=== PATIENT | male | born 1960 | race Caucasian/White ===

== ENCOUNTER 2016-07-14 22:04 | Inpatient (IN) | payer OTHER ==
--- NOTE | 2016-07-15 00:17 | HP ---
CIWA Score - CIWA Score Nausea/Vomitin Muscle Tremors: 2 Anxiety: 2 Agitation: 2 Paroxysmal Sweats: 1-Minimal Palms Moist Orientation: 0-Oriented Tacttile Disturbances: 2-Mild Itch/Numbness/Burn Auditory Disturbances: 2-Mild Harshness/Frighten Visual Disturbances: 2-Mild Sensitivity Headache: 2-Mild CIWA-Ar Total Score: 18 Admission ROS BHS - HPI Chief Complaint: WITHDRAWAL SYMPTOMS Allergies/Adverse Reactions: Allergies Allergy/AdvReac Type Severity Reaction Status Date / Time No Known Allergies Allergy Verified 02/15/16 10:58 History of Present Illness: 56 Y.O. WITH AN EXTENSIVE HISTORY OF DRUG AND ALCOHOL DEPENDENCE IS SEEKING DETOX. HE REPORTS HAVING A HISTORY OF 10 YEARS OF SOBRIETY. HE HAS COMPLETED DETOX AND REHAB HERE PREVIOUSLY AND HIS LAST ADMISSION FOR DETOX WAS IN 02/2016. Exam Limitations: Intoxication - Ebola screening Have you traveled outside of the country in the last 21 days: No (N) Have you had contact with anyone from an Ebola affected area: No Do you have a fever: No - Review of Systems Constitutional: Chills, Loss of Appetite, Malaise, Night Sweats, Unintentional Wgt. Loss EENT: reports: Blurred Vision Respiratory: reports: Cough Cardiac: reports: No Symptoms Reported GI: reports: No Symptoms Reported : reports: No Symptoms Reported Musculoskeletal: reports: Back Pain, Joint Pain Integumentary: reports: No Symptoms Reported Neuro: reports: Headache, Numbness, Tingling Endocrine: reports: No Symptoms Reported Hematology: reports: No Symptoms Reported Psychiatric: reports: Depressed Other Systems: Reviewed and Negative Patient History - Patient Medical History Hx Anemia: No Hx Asthma: No Hx Chronic Obstructive Pulmonary Disease (COPD): No Hx Cancer: No Hx Cardiac Disorders: No Hx Congestive Heart Failure: No Hx Hypertension: No Hx Hypercholesterolemia: Yes (NOT CURRENTLY ON MED) Hx Pacemaker: No HX Cerebrovascular Accident: No Hx Seizures: No Hx Dementia: No Hx Diabetes: No Hx Gastrointestinal Disorders: No Hx Liver Disease: No Hx Genitourinary Disorders: No Hx Sexually Transmitted Disorders: Yes (gonorrhea at age 18) Hx Renal Disease (ESRD): No Hx Thyroid Disease: No Hx Human Immunodeficiency Virus (HIV): No (NEGATIVE HX ) Hx Hepatitis C: No Hx Depression: Yes Hx Suicide Attempt: No (DENIES) Hx Bipolar Disorder: Yes (AND OCD) Hx Schizophrenia: No - Patient Surgical History Past Surgical History: Yes Hx Neurologic Surgery: No Hx Cataract Extraction: No Hx Cardiac Surgery: No Hx Lung Surgery: No Hx Breast Surgery: No Hx Breast Biopsy: No Hx Abdominal Surgery: No Hx Appendectomy: No Hx Cholecystectomy: No Hx Genitourinary Surgery: No Hx Section: No Hx Orthopedic Surgery: No Other Surgical History: left inguinal hernia repair in 2002 Anesthesia Reaction: No - PPD History Previous Implant?: Yes Implanted On Prior [facility] Admission?: Yes Date: 06/01/12 PPD to be Administered?: Yes - Reproductive History Patient is a Female of Child Bearing Age (11 -55 yrs old): No - Smoking Cessation Smoking history: Current some day smoker Have you smoked in the past 12 months: Yes Aproximately how many cigarettes per day: 5 Hx Chewing Tobacco Use: No Initiated information on smoking cessation: Yes 'Breaking Loose' booklet given: 07/15/16 - Substance & Tx. History Hx Alcohol Use: Yes Hx Substance Use: Yes Substance Use Type: Alcohol, Cocaine, Marijuana Hx Substance Use Treatment: Yes (REHAB AND DETOX ) - Substances Abused Alcohol Route: Oral Frequency: Daily Amount used: 20 BEERS Age of first use: 10 Date of Last Use: 07/14/16 Crack Route: Smoking Frequency: Daily Amount used: 1GM Age of first use: 25 Date of Last Use: 07/14/16 Family Disease History - Family Disease History Family Disease History: Diabetes: Mother (), Respiratory: Father ( PARKINSONS DZ-), Other: Grandparent (ALCOHOLISM-), Brother ( ALCOHOLISM) Admission Physical Exam BHS - Vital Signs Vital Signs: Last Vital Signs Temp Pulse Resp BP Pulse Ox 97.6 F 99 H 18 131/79 07/15/16 02:12 07/15/16 02:12 07/15/16 02:12 07/15/16 02:12 - Physical General Appearance: Yes: Alcohol on Breath, Tremorous, Anxious HEENTM: Yes: Hearing grossly Normal, Normocephalic, Normal Voice Respiratory: Yes: Chest Non-Tender, Lungs Clear, Normal Breath Sounds Neck: Yes: No masses,lesions,Nodules, Trachea in good position Breast: Yes: Breast Exam Deferred Abdominal: Yes: Normal Bowel Sounds, Non Tender Genitourinary: Yes: Other (NO COMPLAINTS REPORTED) Back: Yes: Normal Inspection Musculoskeletal: Yes: Back pain Extremities: Yes: Normal Capillary Refill, Normal Inspection, Normal Range of Motion Neurological: Yes: Alert Integumentary: Yes: Normal Color, Dry, Warm - Diagnostic (1) Alcohol dependence with uncomplicated withdrawal Current Visit: Yes Status: Chronic (2) Cocaine dependence Current Visit: Yes Status: Chronic Qualifiers: Substance use status: uncomplicated Qualified Code(s): F14.20 - Cocaine dependence, uncomplicated (3) Neuropathy Current Visit: Yes Status: Chronic (4) Sciatica Current Visit: Yes Status: Chronic Cleared for Admission [facility] - Detox or Rehab [facility] Level of Care: Medically Managed Detox Regimen/Protocol: Librium [facility] Breath Alcohol Content Breath Alcohol Content: 0.178 Vital Signs - Vital Signs Vital Signs Refused: No Temperature: 97.6 F Temperature Source: Oral Pulse Rate: 99 Respiratory Rate: 18 Blood Pressure: 131/79 BP Location: Left Arm Blood Pressure Position: Sitting - Height Height: 5 ft 7 in - Weight Weight: 162 lb Weight Measurement Method: Standing Scale Body Mass Index (BMI): 25.3 Urine Drug Screen - Test Device Lot Number: [id number] Expiration Date: 02/12/18 - Control Is Test Valid: Yes - Results Drug Screen Negative: No Urine Drug Screen Results: FRANKLIN-Cocaine
[2016-07-15] MEDS ORDERED: chlordiazePOXIDE HCL 25 MG CAPSULE PO ONE (02:04)
[2016-07-15] MEDS ORDERED: MAG HYDROX/AL HYDROX/SIMETH 30 ML UNIT-DOSE CUP PO PRN (02:04)
[2016-07-15] MEDS ORDERED: IBUPROFEN 400 MG TABLET (FP) PO PRN (02:04)
[2016-07-15] MEDS ORDERED: LOPERAMIDE HCL 2 MG CAPSULE PO PRN (02:04)
[2016-07-15] MEDS ORDERED: ACETAMINOPHEN 325 MG TABLET (FP) PO PRN (02:04)
[2016-07-15] MEDS ORDERED: MAGNESIUM HYDROX 2400MG/30ML ORAL SUSPENSION 30 ML CUP PO PRN (02:04)
[2016-07-15] MEDS ORDERED: guaiFENesin/D-METHORPHAN HB 10 ML UNIT-DOSE CUPS PO PRN (02:04)
[2016-07-15] MEDS ORDERED: P-EPHED 60MG/TRIPROLIDI 2.5MG TABLET PO PRN (02:04)
[2016-07-15] MEDS ORDERED: MAGNESIUM CITRATE 300 ML BOTTLE PO PRN (02:04)
[2016-07-15] MEDS ORDERED: NICOTINE POLACRILEX 2 MG GUM BUC PRN (02:04)
[2016-07-15] MEDS ORDERED: MENTHOL/PHENOL 1 EACH UD MM PRN (02:04)
[2016-07-15 02:12] VITALS: BMI 25.3
[2016-07-15] MEDS: hydrOXYzine PAMOATE 50 MG CAPSULE (FP) PO PRN (02:21)
[2016-07-15] MEDS: chlordiazePOXIDE HCL 25 MG CAPSULE PO SCH ×4 (05:54→22:10)
[2016-07-15] MEDS ORDERED: LIDOCAINE VISCOUS 2% ORAL/TOP 20 ML UNIT-DOSE CUP MM PRN (09:56)
[2016-07-15] MEDS ORDERED: LIDOCAINE VISCOUS 2% ORAL/TOP 20 ML UNIT-DOSE CUP MM ONE (09:56)
[2016-07-15] MEDS ORDERED: IBUPROFEN 600 MG TABLET (FP) PO PRN (09:56)
--- NOTE | 2016-07-15 10:00 | PN ---
S CIWA - CIWA Score Nausea/Vomitin-No Nausea/No Vomiting Muscle Tremors: 3 Anxiety: 4-Mod. Anxious/Guarded Agitation: 3 Paroxysmal Sweats: 4-Forehead w/Sweat Beads Orientation: 0-Oriented Tacttile Disturbances: 0-None Auditory Disturbances: 0-None Visual Disturbances: 0-None Headache: 0-None Present CIWA-Ar Total Score: 14 BHS Progress Note (SOAP) Subjective: anxiety,tremors,sweating,interrupted sleep,restless.C/O toothache lt. lower molar because tooth is loose. Objective: 07/15/16 09:59 Vital Signs - 8 hr 07/15/16 07/15/16 07/15/16 02:16 03:30 06:21 Temperature 97.6 F 97.6 F Pulse Rate 99 H 106 H Respiratory 18 18 18 Rate Blood Pressure 131/79 122/80 Assessment: 07/15/16 09:59 withdrawal sx. Plan: continue detox
[2016-07-15] MEDS: PRENATAL VITAMINS W/ FOLIC ACID TABLET (FP) PO SCH (10:10)
--- NOTE | 2016-07-15 13:11 | CONSULT ---
[facility] Psychiatric Consult - Data Date of interview: 07/15/16 Admission source: [facility] Identifying data: New admission to [facility] for this 56 y/o male seeking detox treatment on for alcohol,marijuana and cocaine dependence.Patient is without children of his own (has three stepchildren),domiciled,unemployed,now disabled and supported on [facility] benefits.. Substance Abuse History: - Smoking Cessation. Smoking history: Current some day smoker. Have you smoked in the past 12 months: Yes. Aproximately how many cigarettes per day: 5. Hx Chewing Tobacco Use: No. Initiated information on smoking cessation: Yes. 'Breaking Loose' booklet given: 07/15/16. - Substance & Tx. History. Hx Alcohol Use: Yes. Hx Substance Use: Yes. Substance Use Type : Alcohol, Cocaine, Marijuana. Hx Substance Use Treatment: Yes (REHAB AND DETOX ). - Substances Abused. Alcohol. Route: Oral. Frequency: Daily. Amount used: 20 BEERS. Age of first use: 10. Date of Last Use: 07/14/16. Crack. Route: Smoking. Frequency: Daily. Amount used: 1GM. Age of first use : 25. Date of Last Use: 07/14/16. Confirmed by patient in my interview. Medical History: Significant for fibromyalgia,arthritis,low back pain,sciatica, hypercholesterolemia,left inguinal hernia repair and a history of treatment for gonorrhea (age 18). Psychiatric History: History of four psychiatric hospitalizations ([id number]).Known to [facility].Diagnosed with Bipolar Disorder.No OPD care for many years (more than 10 years,according to patient)." I don't need psychiatric medications." Mr Cheema denies history of suicide attempts. Physical/Sexual Abuse/Trauma History: Patient denies. Additional Comment: Urine Drug Screen Results: FRANKLIN-Cocaine.Noted. Mental Status Exam - Mental Status Exam Alert and Oriented to: Time, Place, Person Cognitive Function: Good Patient Appearance: Well Groomed Mood: Nervous, Withdrawn, Anxious Affect: Mood Congruent Patient Behavior: Fatigued, Appropriate, Cooperative Speech Pattern: Clear Voice Loudness: Normal Thought Process: Goal Oriented Thought Disorder: Not Present Hallucinations: Denies Suicidal Ideation: Denies Homicidal Ideation: Denies Insight/Judgement: Poor Sleep: Well Appetite: Good Muscle strength/Tone: Normal Gait/Station: Normal Psychiatric Findings - Problem List ([place] 1, 2,3) (1) Alcohol dependence with uncomplicated withdrawal Current Visit: Yes Status: Acute (2) Cocaine dependence Current Visit: Yes Status: Acute Qualifiers: Substance use status: uncomplicated Qualified Code(s): F14.20 - Cocaine dependence, uncomplicated (3) Nicotine dependence Current Visit: Yes Status: Acute (4) Substance induced mood disorder Current Visit: Yes Status: Acute (5) Bipolar disorder Current Visit: No Status: Chronic Comment: Historical diagnosis.No symptoms elicited. (6) Neuropathy Current Visit: Yes Status: Chronic (7) Sciatica Current Visit: Yes Status: Chronic (8) low back pain herniated disc Current Visit: Yes Status: Chronic (9) DM Diabetes mellitus type 2 Current Visit: Yes Status: Suspected (10) hypercholesterolemia Current Visit: Yes Status: Suspected - Initial Treatment Plan Initial Treatment Plan: Psychoeducation.Detoxification.Observation.
[2016-07-15 17:30] LABS: URINE APPEARANCE CLEAR; URINE BILIRUBIN NEGATIVE (NEGATIVE); URINE COLOR YELLOW; URINE GLUCOSE (UA) NEGATIVE (NEGATIVE); URINE KETONE NEGATIVE (NEGATIVE); URINE LEUK ESTERASE NEGATIVE (NEGATIVE); URINE NITRITE NEGATIVE (NEGATIVE); URINE PROTEIN NEGATIVE (NEGATIVE); URINE UROBILINOGEN NEGATIVE E.U./dl (0.2-1.0)
[2016-07-15 18:00] LABS: URINE BLOOD 1+ (NEGATIVE)
[2016-07-15 18:47] LABS: URINE MUCUS RARE; URINE RBC 1 /hpf (0-3); URINE WBC <1 /hpf (3-5)
[2016-07-15] MEDS: THIAMINE HCL 100 MG TABLET (FP) PO SCH (22:10)
[2016-07-15] MEDS: diphenhydrAMINE HCL 50 MG CAPSULE PO PRN (22:11)
--- NOTE | 2016-07-15 23:34 | EKG ---
Test Reason : Blood Pressure : / mmHG Vent. Rate : 095 BPM Atrial Rate : 095 BPM P-R Int : 162 ms QRS Dur : 086 ms QT Int : 350 ms P-R-T Axes : 060 004 041 degrees QTc Int : 439 ms NORMAL SINUS RHYTHM NORMAL ECG NO PREVIOUS ECGS AVAILABLE Confirmed by RICHARD COLE MD ([id number]) on 07/15/2016 11:34:02 PM Referred By: Confirmed By:RICHARD COLE MD
[2016-07-16] MEDS: chlordiazePOXIDE HCL 25 MG CAPSULE PO SCH ×4 (05:41→22:07)
[2016-07-16 10:06] LABS: MCH 30.7 pg (25.7-33.7); MEAN CELL VOLUME 93.1 fl (80-96); PLATELET COUNT 247 K/MM3 (134-434); RDW 13.4 % (11.9-15.9); WHITE BLOOD COUNT 6.1 K/mm3 (4.0-10.0)
[2016-07-16 10:26] LABS: ALBUMIN 3.5 g/dl (3.4-5.0); ALK PHOS 57 U/L (45-117); ANION GAP 10 (8-16); BILIRUBIN,TOTAL 0.5 mg/dL (0.2-1.0); CALCIUM 8.8 mg/dL (8.5-10.1); CO2 28 mmol/L (21-32); CREATININE 0.8 mg/dL (0.7-1.3); GLUCOSE,RANDOM 95 mg/dL (74-106); SGOT/AST 68 U/L (15-37); SGPT/ALT 106 U/L (12-78); TOT PROT 7.2 g/dl (6.4-8.2)
[2016-07-16] MEDS: PRENATAL VITAMINS W/ FOLIC ACID TABLET (FP) PO SCH (10:29)
[2016-07-16 12:15] LABS: HIV 1 & 2 AB NEGATIVE; HIV 1 AGp24 NEGATIVE
[2016-07-16] MEDS: chlordiazePOXIDE HCL 25 MG CAPSULE PO PRN ×2 (12:33→19:42)
--- NOTE | 2016-07-16 17:41 | PN ---
[facility] CIWA - CIWA Score Nausea/Vomitin-No Nausea/No Vomiting Muscle Tremors: 3 Anxiety: 4-Mod. Anxious/Guarded Agitation: 3 Paroxysmal Sweats: 3 Orientation: 0-Oriented Tacttile Disturbances: 0-None Auditory Disturbances: 0-None Visual Disturbances: 0-None Headache: 0-None Present CIWA-Ar Total Score: 13 S Progress Note (SOAP) Subjective: anxiety,tremors,sweating,interrupted sleep,restless. Objective: 07/16/16 17:40 Vital Signs - 8 hr 07/16/16 07/16/16 15:06 17:31 Temperature 95.9 F L 97.2 F L Pulse Rate 106 H 98 H Respiratory 19 18 Rate Blood Pressure 120/83 117/81 Laboratory Last Values WBC 6.1 K/mm3 (4.0-10.0) D 07/16/16 07:00 RBC 5.15 M/mm3 (4.00-5.60) 07/16/16 07:00 Hgb 15.8 GM/dL (11.7-16.9) D 07/16/16 07:00 Hct 47.9 % (35.4-49) 07/16/16 07:00 MCV 93.1 fl (80-96) 07/16/16 07:00 MCHC 33.0 g/dl (32.0-35.9) 07/16/16 07:00 RDW 13.4 % (11.9-15.9) 07/16/16 07:00 Plt Count 247 K/MM3 (134-434) 07/16/16 07:00 MPV 7.0 fl (7.5-11.1) L 07/16/16 07:00 Sodium 142 mmol/L (136-145) 07/16/16 07:00 Potassium 4.3 mmol/L (3.5-5.1) 07/16/16 07:00 Chloride 104 mmol/L (98-107) 07/16/16 07:00 Carbon Dioxide 28 mmol/L (21-32) 07/16/16 07:00 Anion Gap 10 (8-16) 07/16/16 07:00 BUN 10 mg/dL (7-18) 07/16/16 07:00 Creatinine 0.8 mg/dL (0.7-1.3) 07/16/16 07:00 Creat Clearance w eGFR > 60 (>60) 07/16/16 07:00 Random Glucose 95 mg/dL (74-106) 07/16/16 07:00 Calcium 8.8 mg/dL (8.5-10.1) 07/16/16 07:00 Total Bilirubin 0.5 mg/dL (0.2-1.0) D 07/16/16 07:00 AST 68 U/L (15-37) H D 07/16/16 07:00 ALT 106 U/L (12-78) H D 07/16/16 07:00 Alkaline Phosphatase 57 U/L (45-117) 07/16/16 07:00 Total Protein 7.2 g/dl (6.4-8.2) 07/16/16 07:00 Albumin 3.5 g/dl (3.4-5.0) 07/16/16 07:00 Urine Color Yellow 07/15/16 10:45 Urine Appearance Clear 07/15/16 10:45 Urine pH 5.0 (5.0-8.0) 07/15/16 10:45 Ur Specific [place] 1.017 (1.001-1.035) 07/15/16 10:45 Urine Protein Negative (NEGATIVE) 07/15/16 10:45 Urine Glucose (UA) Negative (NEGATIVE) 07/15/16 10:45 Urine Ketones Negative (NEGATIVE) 07/15/16 10:45 Urine Blood 1+ (NEGATIVE) H 07/15/16 10:45 Urine Nitrite Negative (NEGATIVE) 07/15/16 10:45 Urine Bilirubin Negative (NEGATIVE) 07/15/16 10:45 Urine Urobilinogen Negative E.U./dl (0.2-1.0) 07/15/16 10:45 Ur Leukocyte Esterase Negative (NEGATIVE) 07/15/16 10:45 Urine RBC 1 /hpf (0-3) 07/15/16 10:45 Urine WBC <1 /hpf (3-5) 07/15/16 10:45 Urine Mucus Rare 07/15/16 10:45 RPR Titer Nonreactive (NONREACTIVE) 07/16/16 07:00 HIV 1&2 Antibody Screen Negative 07/15/16 07:00 HIV P24 Antigen Negative 07/15/16 07:00 labs noted Assessment: 07/16/16 17:41 withdrawal sx. Plan: continue detox
[2016-07-16] MEDS: diphenhydrAMINE HCL 50 MG CAPSULE PO PRN (22:07)
[2016-07-16] MEDS: THIAMINE HCL 100 MG TABLET (FP) PO SCH (22:07)
[2016-07-17] MEDS: chlordiazePOXIDE 5 MG CAPSULE PO SCH ×4 (05:46→23:23)
[2016-07-17] MEDS: PRENATAL VITAMINS W/ FOLIC ACID TABLET (FP) PO SCH (10:27)
[2016-07-17] MEDS ORDERED: BACITRACIN 0.9 GM PACKET TP ONE (10:28)
--- NOTE | 2016-07-17 10:31 | PN ---
BHS Progress Note (SOAP) Subjective: SWEATING,INTERRUPTED SLEEP,RESTLESS. Objective: 07/17/16 10:30 Vital Signs - 8 hr 07/17/16 07/17/16 07/17/16 03:29 06:11 09:20 Temperature 95.7 F L 96.0 F L Pulse Rate 94 H 88 Respiratory 18 16 18 Rate Blood Pressure 117/80 113/66 Laboratory Tests 07/15/16 07/15/16 07/16/16 07:00 10:45 07:00 WBC 6.1 D RBC 5.15 Hgb 15.8 D Hct 47.9 MCV 93.1 MCHC 33.0 RDW 13.4 Plt Count 247 MPV 7.0 L Sodium Potassium Chloride Carbon Dioxide Anion Gap BUN Creatinine Creat Clearance w eGFR Random Glucose Calcium Total Bilirubin AST ALT Alkaline Phosphatase Total Protein Albumin Urine Color Yellow Urine Appearance Clear Urine pH 5.0 Ur Specific [place] 1.017 Urine Protein Negative Urine Glucose (UA) Negative Urine Ketones Negative Urine Blood 1+ H Urine Nitrite Negative Urine Bilirubin Negative Urine Urobilinogen Negative Ur Leukocyte Esterase Negative Urine RBC 1 Urine WBC <1 Urine Mucus Rare RPR Titer HIV 1&2 Antibody Screen Negative HIV P24 Antigen Negative 07/16/16 07/16/16 07:00 07:00 WBC RBC Hgb Hct MCV MCHC RDW Plt Count MPV Sodium 142 Potassium 4.3 Chloride 104 Carbon Dioxide 28 Anion Gap 10 BUN 10 Creatinine 0.8 Creat Clearance w eGFR > 60 Random Glucose 95 Calcium 8.8 Total Bilirubin 0.5 D AST 68 H D ALT 106 H D Alkaline Phosphatase 57 Total Protein 7.2 Albumin 3.5 Urine Color Urine Appearance Urine pH Ur Specific [place] Urine Protein Urine Glucose (UA) Urine Ketones Urine Blood Urine Nitrite Urine Bilirubin Urine Urobilinogen Ur Leukocyte Esterase Urine RBC Urine WBC Urine Mucus RPR Titer Nonreactive HIV 1&2 Antibody Screen HIV P24 Antigen LABS NOTED Assessment: 07/17/16 10:31 WITHDRAWAL SX. Plan: CONTINUE DETOX
[2016-07-17] MEDS: chlordiazePOXIDE HCL 25 MG CAPSULE PO PRN ×2 (13:44→20:07)
[2016-07-17] MEDS: BACITRACIN 0.9 GM PACKET TP SCH ×3 (14:22→22:31)
[2016-07-17] MEDS: hydrOXYzine PAMOATE 50 MG CAPSULE (FP) PO PRN ×2 (17:58→22:33)
[2016-07-17] MEDS: THIAMINE HCL 100 MG TABLET (FP) PO SCH (22:32)
[2016-07-18] MEDS: chlordiazePOXIDE HCL 10 MG CAPSULE PO SCH ×2 (05:40→11:31)
[2016-07-18 06:26] VITALS: BP 118/80; PULSE 97; TEMP 95.9
--- NOTE | 2016-07-18 08:31 | PN ---
BHS Progress Note (SOAP) Subjective: no complaints Objective: 07/18/16 08:30 Vital Signs - 8 hr 07/18/16 07/18/16 03:36 06:25 Temperature 95.9 F L Pulse Rate 97 H Respiratory 18 18 Rate Blood Pressure 118/80 Laboratory Tests 07/15/16 07/15/16 07/16/16 07:00 10:45 07:00 WBC 6.1 D RBC 5.15 Hgb 15.8 D Hct 47.9 MCV 93.1 MCHC 33.0 RDW 13.4 Plt Count 247 MPV 7.0 L Sodium Potassium Chloride Carbon Dioxide Anion Gap BUN Creatinine Creat Clearance w eGFR Random Glucose Calcium Total Bilirubin AST ALT Alkaline Phosphatase Total Protein Albumin Urine Color Yellow Urine Appearance Clear Urine pH 5.0 Ur Specific [place] 1.017 Urine Protein Negative Urine Glucose (UA) Negative Urine Ketones Negative Urine Blood 1+ H Urine Nitrite Negative Urine Bilirubin Negative Urine Urobilinogen Negative Ur Leukocyte Esterase Negative Urine RBC 1 Urine WBC <1 Urine Mucus Rare RPR Titer HIV 1&2 Antibody Screen Negative HIV P24 Antigen Negative 07/16/16 07/16/16 07:00 07:00 WBC RBC Hgb Hct MCV MCHC RDW Plt Count MPV Sodium 142 Potassium 4.3 Chloride 104 Carbon Dioxide 28 Anion Gap 10 BUN 10 Creatinine 0.8 Creat Clearance w eGFR > 60 Random Glucose 95 Calcium 8.8 Total Bilirubin 0.5 D AST 68 H D ALT 106 H D Alkaline Phosphatase 57 Total Protein 7.2 Albumin 3.5 Urine Color Urine Appearance Urine pH Ur Specific [place] Urine Protein Urine Glucose (UA) Urine Ketones Urine Blood Urine Nitrite Urine Bilirubin Urine Urobilinogen Ur Leukocyte Esterase Urine RBC Urine WBC Urine Mucus RPR Titer Nonreactive HIV 1&2 Antibody Screen HIV P24 Antigen elevated lfts Assessment: 07/18/16 08:31 completed detox, medically stable Plan: d/ctod ay, f/y w PCP for medical care post discharge
--- NOTE | 2016-07-18 08:34 | DS ---
[facility] Detox Discharge Summary Admission Date: 07/15/16 Discharge Date: 07/18/16 - History Present History: Alcohol Dependence, Cocaine Dependence Pertinent Past History: anxiety, depression , insomnia, nicotine dependence, GERD - Physical Exam Results Vital Signs: Vital Signs Temperature 95.9 F L 07/18/16 06:25 Pulse Rate 97 H 07/18/16 06:25 Respiratory Rate 18 07/18/16 06:25 Blood Pressure 118/80 07/18/16 06:25 O2 Sat by Pulse Oximetry (%) Pertinent Admission Physical Exam Findings: withdrawal sx - Treatment Hospital Course: Detox Protocol Followed, Detoxed Safely, Responded well, Discharged Condition Good, Rehab Referral Accepted Patient has Accepted a Rehab Referral to: Yes - Medication Discharge Medications: Ambulatory Orders Gabapentin [Neurontin] 300 mg PO HS 06/13/14 Ibuprofen [Motrin -] 800 mg PO DAILY PRN 02/15/16 Omeprazole [Prilosec] 20 mg PO DAILY PRN 02/15/16 Tizanidine HCl [Zanaflex] 2 mg PO HS 02/15/16 - Diagnosis (1) Alcohol dependence with uncomplicated withdrawal Current Visit: Yes Status: Chronic (2) Cocaine dependence Current Visit: Yes Status: Chronic Qualifiers: Substance use status: uncomplicated Qualified Code(s): F14.20 - Cocaine dependence, uncomplicated (3) Nicotine dependence Current Visit: Yes Status: Chronic Qualifiers: Substance use status: in withdrawal (4) Substance induced mood disorder Current Visit: Yes Status: Acute (5) Neuropathy Current Visit: Yes Status: Chronic (6) Sciatica Current Visit: Yes Status: Chronic (7) low back pain herniated disc Current Visit: Yes Status: Chronic (8) DM Diabetes mellitus type 2 Current Visit: Yes Status: Chronic (9) hypercholesterolemia Current Visit: Yes Status: Chronic (10) Weight decreased Current Visit: No Status: Resolved (11) bipolar dosorder with depression Current Visit: No Status: Chronic (12) syncope alcohol related Current Visit: No Status: Resolved (13) Bipolar disorder Current Visit: No Status: Chronic - AMA Did Patient Leave Against Medical Advice: No
[2016-07-18] MEDS: BACITRACIN 0.9 GM PACKET TP SCH (11:31)
[2016-07-18] MEDS: PRENATAL VITAMINS W/ FOLIC ACID TABLET (FP) PO SCH (11:31)
== END 2016-07-18 08:52 | disposition home or self-care (01) | DRG 897 ==
LOC: YASAS 22:04 → Y3N 07-15 00:08
PROVIDERS: ADMIT Internal Medicine; ATTEND Internal Medicine
PROC: HZ2ZZZZ Detoxification Services for Substance Abuse Treatment (ICD-10-PCS; principal; 2016-07-18)
DX: F10.230 Alcohol dependence with withdrawal, uncomplicated (principal); F14.20 Cocaine dependence, uncomplicated; F17.213 Nicotine dependence, cigarettes, with withdrawal; F19.24 Other psychoactive substance dependence with psychoactive substance-induced mood disorder; F31.9 Bipolar disorder, unspecified; E11.9 Type 2 diabetes mellitus without complications; E78.00 Pure hypercholesterolemia, unspecified; G62.9 Polyneuropathy, unspecified; M54.30 Sciatica, unspecified side; R63.4 Abnormal weight loss; Z68.25 Body mass index [BMI] 25.0-25.9, adult
CPT/HCPCS: 36415; 80053; 81003; 81015; 85027; 86593; 87389; 93005; 93010

== ENCOUNTER 2016-11-16 15:39 | Inpatient (IN) | payer OTHER ==
[2016-11-16] MEDS ORDERED: P-EPHED 60MG/TRIPROLIDI 2.5MG TABLET PO PRN (16:47)
[2016-11-16] MEDS ORDERED: MAGNESIUM HYDROX 2400MG/30ML ORAL SUSPENSION 30 ML CUP PO PRN (16:47)
[2016-11-16] MEDS ORDERED: LOPERAMIDE HCL 2 MG CAPSULE PO PRN (16:47)
[2016-11-16] MEDS ORDERED: chlordiazePOXIDE HCL 25 MG CAPSULE PO ONE (16:47)
[2016-11-16] MEDS ORDERED: NICOTINE POLACRILEX 2 MG GUM BC PRN (16:47)
[2016-11-16] MEDS ORDERED: guaiFENesin/D-METHORPHAN HB 10 ML UNIT-DOSE CUPS PO PRN (16:47)
[2016-11-16] MEDS ORDERED: ACETAMINOPHEN 325 MG TABLET (FP) PO PRN (16:47)
[2016-11-16] MEDS ORDERED: MAG HYDROX/AL HYDROX/SIMETH 30 ML UNIT-DOSE CUP PO PRN (16:47)
[2016-11-16] MEDS ORDERED: IBUPROFEN 400 MG TABLET (FP) PO PRN (16:47)
[2016-11-16] MEDS ORDERED: MENTHOL/PHENOL 1 EACH UD MM PRN (16:47)
[2016-11-16] MEDS ORDERED: MAGNESIUM CITRATE 300 ML BOTTLE PO PRN (16:47)
[2016-11-16 16:49] VITALS: BMI 24.1
--- NOTE | 2016-11-16 17:13 | HP ---
CIWA Score - CIWA Score Nausea/Vomitin Muscle Tremors: 4-Moderate,w/Arms Extend Anxiety: 4-Mod. Anxious/Guarded Agitation: 5 Paroxysmal Sweats: 3 Orientation: 0-Oriented Tacttile Disturbances: 0-None Auditory Disturbances: 0-None Visual Disturbances: 0-None Headache: 2-Mild CIWA-Ar Total Score: 20 Admission ROS BHS - HPI Chief Complaint: Withdrawal sx. Allergies/Adverse Reactions: Allergies Allergy/AdvReac Type Severity Reaction Status Date / Time No Known Allergies Allergy Verified 07/15/16 02:56 History of Present Illness: 56 y/o man with a long hx. of alcoholism is admitted for detox. Pt. has been in previous detox,denies significant sobriety. Pt. is non-compliant with mental health treatment. Exam Limitations: No Limitations - Ebola screening Have you traveled outside of the country in the last 21 days: No Have you had contact with anyone from an Ebola affected area: No Do you have a fever: No - Review of Systems Constitutional: Diaphoresis EENT: reports: No Symptoms Reported Respiratory: reports: No Symptoms reported Cardiac: reports: No Symptoms Reported GI: reports: Nausea, Abdominal cramping : reports: No Symptoms Reported Musculoskeletal: reports: Back Pain (herniated lumbar disc) Integumentary: reports: Sweating Neuro: reports: Headache, Tremors Endocrine: reports: No Symptoms Reported Hematology: reports: No Symptoms Reported Psychiatric: reports: No Sypmtoms Reported Other Systems: Reviewed and Negative Patient History - Patient Medical History Hx Anemia: No Hx Asthma: No Hx Chronic Obstructive Pulmonary Disease (COPD): No Hx Cancer: No Hx Cardiac Disorders: No Hx Congestive Heart Failure: No Hx Hypertension: No Hx Hypercholesterolemia: Yes (NOT CURRENTLY ON MED ?) Hx Pacemaker: No HX Cerebrovascular Accident: No Hx Seizures: No Hx Dementia: No Hx Diabetes: No Hx Gastrointestinal Disorders: No Hx Liver Disease: No Hx Genitourinary Disorders: No Hx Sexually Transmitted Disorders: Yes (gonorrhea at age 18) Hx Renal Disease (ESRD): No Hx Thyroid Disease: No Hx Human Immunodeficiency Virus (HIV): No Hx Hepatitis C: No Hx Depression: Yes Hx Suicide Attempt: No (DENIES) Hx Bipolar Disorder: Yes (AND OCD) Hx Schizophrenia: No Other Medical History: ADD - Patient Surgical History Past Surgical History: Yes Hx Neurologic Surgery: No Hx Cataract Extraction: No Hx Cardiac Surgery: No Hx Lung Surgery: No Hx Breast Surgery: No Hx Breast Biopsy: No Hx Abdominal Surgery: No Hx Appendectomy: No Hx Cholecystectomy: No Hx Genitourinary Surgery: No Hx Section: No Hx Orthopedic Surgery: No Other Surgical History: left inguinal hernia repair in 2002 Anesthesia Reaction: No - PPD History Date: 07/17/16 Results: 0 mm PPD to be Administered?: No - Smoking Cessation Smoking history: Current every day smoker Have you smoked in the past 12 months: Yes Aproximately how many cigarettes per day: 10 Hx Chewing Tobacco Use: No Initiated information on smoking cessation: Yes 'Breaking Loose' booklet given: 11/16/16 - Substance & Tx. History Hx Alcohol Use: Yes Hx Substance Use: Yes Substance Use Type: Alcohol, Cocaine Hx Substance Use Treatment: Yes (Detox) - Substances Abused Alcohol Route: Oral Frequency: Daily Amount used: 3-4(6 packs), Vodka 4oz Age of first use: 10 Date of Last Use: 11/16/16 Crack Route: Smoking Frequency: Daily Amount used: 1 gm Age of first use: 26 Date of Last Use: 11/16/16 Marijuana/Hashish Route: Smoking Frequency: 3-6 times per week Amount used: 1 blunt Age of first use: 13 Date of Last Use: 11/16/16 Family Disease History - Family Disease History Family Disease History: Diabetes: Mother (), Respiratory: Father ( PARKINSONS DZ-), Other: Grandparent (ALCOHOLISM-), Brother ( ALCOHOLISM) Admission Physical Exam S - Vital Signs Vital Signs: Vital Signs - 24 hr 11/16/16 16:47 Temperature 98.7 F Pulse Rate 115 H Respiratory 18 Rate Blood Pressure 147/77 - Physical General Appearance: Yes: Alcohol on Breath, Tremorous, Irritable, Sweating, Anxious HEENTM: Yes: Within Normal Limits Respiratory: Yes: Chest Non-Tender, Lungs Clear, Normal Breath Sounds Neck: Yes: Supple Breast: Yes: Breast Exam Deferred Cardiology: Yes: Regular Rhythm, Regular Rate, S1, S2 Abdominal: Yes: Normal Bowel Sounds, Non Tender, Soft Genitourinary: Yes: Within Normal Limits Back: Yes: Within Normal Limits Musculoskeletal: Yes: full range of Motion Extremities: Yes: Tremors Neurological: Yes: Fully Oriented, Alert Integumentary: Yes: Diaphoresis Lymphatic: Yes: Within Normal Limits - Diagnostic (1) Alcohol dependence with uncomplicated withdrawal Current Visit: Yes Status: Chronic (2) Cocaine dependence Current Visit: Yes Status: Chronic Qualifiers: Substance use status: uncomplicated Qualified Code(s): F14.20 - Cocaine dependence, uncomplicated (3) Lumbago Current Visit: Yes Status: Acute Qualifiers: Chronicity: chronic Back pain laterality: bilateral Sciatica presence: with sciatica Sciatica laterality: bilateral sciatica Qualified Code(s): M54.42 - Lumbago with sciatica, left side; M54.41 - Lumbago with sciatica, right side; G89.29 - Other chronic pain Cleared for Admission [facility] - Detox or Rehab [facility] Level of Care: Medically Managed Detox Regimen/Protocol: Librium [facility] Breath Alcohol Content Breath Alcohol Content: 0.266 Urine Drug Screen - Results Drug Screen Negative: No Urine Drug Screen Results: THC-Marijuana, FRANKLIN-Cocaine
[2016-11-16] MEDS: PANTOPRAZOLE 40 MG TABLET (FP) PO SCH (18:48)
[2016-11-16] MEDS: NICOTINE 21 MG/24 HOURS TOPICAL PATCH TD SCH (18:50)
[2016-11-16] MEDS: chlordiazePOXIDE HCL 25 MG CAPSULE PO SCH ×2 (18:51→22:42)
[2016-11-16] MEDS: CYCLOBENZAPRINE HCL 10 MG TABLET (FP) PO SCH (22:43)
[2016-11-16] MEDS: GABAPENTIN 300 MG CAPSULE (FP) PO SCH (22:43)
[2016-11-16] MEDS: diphenhydrAMINE HCL 50 MG CAPSULE PO PRN (22:43)
[2016-11-16] MEDS: THIAMINE HCL 100 MG TABLET (FP) PO SCH (22:43)
[2016-11-17] MEDS: chlordiazePOXIDE HCL 25 MG CAPSULE PO SCH ×4 (05:54→22:30)
[2016-11-17 09:55] LABS: MCH 31.4 pg (25.7-33.7); MCHC 33.8 g/dl (32.0-35.9); MEAN CELL VOLUME 92.9 fl (80-96); MEAN PLT VOLUME 6.8 fl (7.5-11.1); PLATELET COUNT 179 K/MM3 (134-434); RDW 13.5 % (11.9-15.9); WHITE BLOOD COUNT 5.6 K/mm3 (4.0-10.0)
--- NOTE | 2016-11-17 10:06 | PN ---
BHS CIWA - CIWA Score Nausea/Vomitin Muscle Tremors: 3 Anxiety: 3 Agitation: 2 Paroxysmal Sweats: 2 Orientation: 0-Oriented Tacttile Disturbances: 1-Very Mild Itch/Numbness Auditory Disturbances: 1-Very Mild Visual Disturbances: 1-Very Mild Sensitivity Headache: 2-Mild CIWA-Ar Total Score: 18 BHS Progress Note (SOAP) Subjective: ALERT,IRRITABLE,ANXIOUS,INTERRUPTED SLEEP,TREMOR,PAIN IN LOWER BACK Objective: 11/17/16 10:03 Vital Signs Temperature 97 F L 11/17/16 06:39 Pulse Rate 72 11/17/16 06:39 Respiratory Rate 18 11/17/16 06:39 Blood Pressure 120/71 11/17/16 06:39 O2 Sat by Pulse Oximetry (%) EKG NSR Laboratory Last Values POC Glucometer 104 UNITS (()) 11/17/16 05:53 LABS PENDING Assessment: 11/17/16 10:04 WITHDRAWAL SYMPTOM Plan: CONTINUE DETOX,HISTORY OF BORDERLINE DM,BGM MONITORING BID,
[2016-11-17] MEDS: PANTOPRAZOLE 40 MG TABLET (FP) PO SCH (10:57)
[2016-11-17] MEDS: PRENATAL VITAMINS W/ FOLIC ACID TABLET (FP) PO SCH (10:57)
[2016-11-17] MEDS: CYCLOBENZAPRINE HCL 10 MG TABLET (FP) PO SCH ×2 (10:57→22:30)
[2016-11-17] MEDS: NICOTINE 21 MG/24 HOURS TOPICAL PATCH TD SCH (10:58)
[2016-11-17 11:00] LABS: ALBUMIN 3.4 g/dl (3.4-5.0); ANION GAP 8 (8-16); BILIRUBIN,TOTAL 0.5 mg/dL (0.2-1.0); CALCIUM 8.3 mg/dL (8.5-10.1); CO2 31 mmol/L (21-32); COCKROFT - GAULT 103.08; CREATININE 0.8 mg/dL (0.7-1.3); GLUCOSE,RANDOM 91 mg/dL (74-106); SGOT/AST 34 U/L (15-37); SGPT/ALT 38 U/L (12-78); TOT PROT 6.4 g/dl (6.4-8.2)
--- NOTE | 2016-11-17 11:00 | CONSULT ---
[facility] Psychiatric Consult - Data Date of interview: 11/17/16 Admission source: [facility] Identifying data: This is 56 years old male with history of Bipolar Disorder intoxicated with: Alcohol , Cociane and Nicotine Substance Abuse History: Smoking history: Current every day smoker. Have you smoked in the past 12 months: Yes. Aproximately how many cigarettes per day: 10. Hx Chewing Tobacco Use: No. Initiated information on smoking cessation: Yes. 'Breaking Loose' booklet given: 11/16/16. - Substance & Tx. History. Hx Alcohol Use: Yes. Hx Substance Use: Yes. Substance Use Type: Alcohol, Cocaine. Hx Substance Use Treatment: Yes (Detox). - Substances Abused. Alcohol. Route: Oral. Frequency: Daily. Amount used: 3-4(6 packs), Vodka 4oz. Age of first use: 10. Date of Last Use: 11/16/16. Crack. Route: Smoking. Frequency: Daily. Amount used: 1 gm. Age of first use: 26. Date of Last Use: 11/16/16. Marijuana/Hashish. Route: Smoking. Frequency: 3-6 times per week. Amount used: 1 blunt. Age of first use: 13. Date of Last Use : 11/16/16 Medical History: Lumbago, LBP, Shiatica, DM-2, Hypercholesterolemia Psychiatric History: Patient reports history of Bipolar dsiorderwith no history of npsychioatric hospitalizationsm reports taking prior to admsision no medications Physical/Sexual Abuse/Trauma History: Denies Additional Comment: Observation. Detox Unit Care Protocol Mental Status Exam - Mental Status Exam Alert and Oriented to: Person Cognitive Function: Fair Patient Appearance: Unkempt Mood: Sad Affect: Flat Patient Behavior: Sedated Speech Pattern: Delayed Voice Loudness: Mildly Soft/Quiet Thought Process: Circumstantial Thought Disorder: Being Controlled Hallucinations: Denies Suicidal Ideation: Denies Homicidal Ideation: Denies Insight/Judgement: Fair Sleep: Difficulty falling asleep Appetite: Fair Muscle strength/Tone: Clonus Gait/Station: Shuffling Additional Comments: Observation. Detox Unit Care Protocol Psychiatric Findings - Problem List ([place] 1, 2,3) (1) Alcohol dependence with uncomplicated withdrawal Current Visit: Yes Status: Chronic (2) Cocaine dependence Current Visit: Yes Status: Chronic Qualifiers: Substance use status: uncomplicated Qualified Code(s): F14.20 - Cocaine dependence, uncomplicated (3) Substance induced mood disorder Current Visit: No Status: Acute (4) Bipolar disorder Current Visit: No Status: Suspected Comment: Historical diagnosis.No symptoms elicited. (5) Neuropathy Current Visit: No Status: Chronic (6) Nicotine dependence Current Visit: No Status: Chronic Qualifiers: Substance use status: in withdrawal (7) bipolar dosorder with depression Current Visit: No Status: Suspected - Initial Treatment Plan Initial Treatment Plan: Observation. Detox Unit Care Protocol
[2016-11-17 11:01] LABS: ALK PHOS 46 U/L (45-117)
--- NOTE | 2016-11-17 11:46 | EKG ---
Test Reason : Blood Pressure : / mmHG Vent. Rate : 095 BPM Atrial Rate : 095 BPM P-R Int : 152 ms QRS Dur : 076 ms QT Int : 346 ms P-R-T Axes : 064 004 051 degrees QTc Int : 434 ms NORMAL SINUS RHYTHM POSSIBLE LEFT ATRIAL ENLARGEMENT BORDERLINE ECG WHEN COMPARED WITH ECG OF 15-JUL-2016 02:09, NO SIGNIFICANT CHANGE WAS FOUND Confirmed by RICHARD COLE MD ([id number]) on 11/17/2016 11:45:51 AM Referred By: Carlos Andersen Confirmed By:RICHARD COLE MD
[2016-11-17] MEDS ORDERED: PNEUMOCOCCAL 23 VACCINE 0.5 ML VIAL IM ONE (12:00)
[2016-11-17] MEDS ORDERED: PNEUMOC 13-VAL CONJ-DIP CRM/PF 0.5 ML DISP.SYRIN IM ONE (12:00)
[2016-11-17 14:30] LABS: URINE APPEARANCE CLEAR; URINE BILIRUBIN NEGATIVE (NEGATIVE); URINE COLOR LTYELLOW; URINE GLUCOSE (UA) NEGATIVE (NEGATIVE); URINE KETONE NEGATIVE (NEGATIVE); URINE LEUK ESTERASE NEGATIVE (NEGATIVE); URINE NITRITE NEGATIVE (NEGATIVE); URINE PROTEIN NEGATIVE (NEGATIVE); URINE UROBILINOGEN NEGATIVE E.U./dl (0.2-1.0)
[2016-11-17 15:16] LABS: URINE BLOOD 1+ (NEGATIVE)
[2016-11-17 15:23] LABS: URINE RBC 1 /hpf (0-3)
[2016-11-17] MEDS: GABAPENTIN 300 MG CAPSULE (FP) PO SCH (22:30)
[2016-11-17] MEDS: THIAMINE HCL 100 MG TABLET (FP) PO SCH (22:30)
[2016-11-17] MEDS: diphenhydrAMINE HCL 50 MG CAPSULE PO PRN (22:30)
[2016-11-18] MEDS: chlordiazePOXIDE HCL 25 MG CAPSULE PO SCH ×2 (05:35→10:55)
[2016-11-18] MEDS: IBUPROFEN 400 MG TABLET (FP) PO PRN ×2 (10:55→22:48)
[2016-11-18] MEDS: CYCLOBENZAPRINE HCL 10 MG TABLET (FP) PO SCH ×2 (10:55→22:45)
[2016-11-18] MEDS: NICOTINE 21 MG/24 HOURS TOPICAL PATCH TD SCH (10:56)
[2016-11-18] MEDS: PRENATAL VITAMINS W/ FOLIC ACID TABLET (FP) PO SCH (10:56)
[2016-11-18] MEDS: PANTOPRAZOLE 40 MG TABLET (FP) PO SCH (10:56)
[2016-11-18] MEDS: hydrOXYzine PAMOATE 50 MG CAPSULE (FP) PO PRN (10:57)
--- NOTE | 2016-11-18 11:33 | PN ---
S CIWA - CIWA Score Nausea/Vomitin Muscle Tremors: 3 Anxiety: 3 Agitation: 2 Paroxysmal Sweats: 1-Minimal Palms Moist Orientation: 0-Oriented Tacttile Disturbances: 1-Very Mild Itch/Numbness Auditory Disturbances: 1-Very Mild Visual Disturbances: 1-Very Mild Sensitivity Headache: 2-Mild CIWA-Ar Total Score: 17 BHS Progress Note (SOAP) Subjective: ALERT,IRRITABLE,ANXIOUS,INTERRUPTED SLEEP,TREMOR Objective: 11/18/16 11:32 Vital Signs Temperature 96.9 F L 11/18/16 10:36 Pulse Rate 94 H 11/18/16 10:36 Respiratory Rate 16 11/18/16 10:36 Blood Pressure 128/91 11/18/16 10:36 O2 Sat by Pulse Oximetry (%) 11/18/16 11:32 BGM IS 105 Assessment: 11/18/16 11:32 WITHDRAWAL SYMPTOM Plan: CONTINUE DETOX
[2016-11-18] MEDS: chlordiazePOXIDE HCL 25 MG CAPSULE PO PRN (15:16)
[2016-11-18] MEDS: chlordiazePOXIDE 5 MG CAPSULE PO SCH ×2 (16:55→22:45)
[2016-11-18] MEDS: diphenhydrAMINE HCL 50 MG CAPSULE PO PRN (22:45)
[2016-11-18] MEDS: GABAPENTIN 300 MG CAPSULE (FP) PO SCH (22:45)
[2016-11-18] MEDS: THIAMINE HCL 100 MG TABLET (FP) PO SCH (22:45)
[2016-11-19] MEDS: chlordiazePOXIDE 5 MG CAPSULE PO SCH ×2 (05:41→10:53)
[2016-11-19] MEDS: IBUPROFEN 400 MG TABLET (FP) PO PRN ×2 (10:52→22:25)
[2016-11-19] MEDS: PRENATAL VITAMINS W/ FOLIC ACID TABLET (FP) PO SCH (10:52)
[2016-11-19] MEDS: CYCLOBENZAPRINE HCL 10 MG TABLET (FP) PO SCH ×2 (10:53→22:24)
[2016-11-19] MEDS: NICOTINE 21 MG/24 HOURS TOPICAL PATCH TD SCH (10:53)
[2016-11-19] MEDS: PANTOPRAZOLE 40 MG TABLET (FP) PO SCH (10:53)
[2016-11-19] MEDS: hydrOXYzine PAMOATE 50 MG CAPSULE (FP) PO PRN ×2 (10:53→17:59)
--- NOTE | 2016-11-19 11:47 | PN ---
S Progress Note (SOAP) Subjective: ALERT,IRRITABLE,ANXIOUS,INTERRUPTED SLEEP Objective: 11/19/16 11:46 Vital Signs Temperature 96.6 F L 11/19/16 10:05 Pulse Rate 98 H 11/19/16 10:05 Respiratory Rate 16 11/19/16 10:05 Blood Pressure 131/80 11/19/16 10:05 O2 Sat by Pulse Oximetry (%) Assessment: 11/19/16 11:46 WITHDRAWAL SYMPTOM Plan: CONTINUE DETOX
[2016-11-19] MEDS: chlordiazePOXIDE HCL 25 MG CAPSULE PO PRN (12:10)
[2016-11-19] MEDS: chlordiazePOXIDE HCL 10 MG CAPSULE PO SCH ×2 (17:57→22:25)
[2016-11-19] MEDS: GABAPENTIN 300 MG CAPSULE (FP) PO SCH (22:24)
[2016-11-19] MEDS: THIAMINE HCL 100 MG TABLET (FP) PO SCH (22:25)
[2016-11-19] MEDS: diphenhydrAMINE HCL 50 MG CAPSULE PO PRN (22:25)
[2016-11-20] MEDS: chlordiazePOXIDE HCL 10 MG CAPSULE PO SCH ×2 (06:09→10:53)
[2016-11-20] MEDS: hydrOXYzine PAMOATE 50 MG CAPSULE (FP) PO PRN ×3 (06:09→21:15)
--- NOTE | 2016-11-20 08:49 | PN ---
S Progress Note (SOAP) Subjective: ALERT,NO COMPLAINT Objective: 11/20/16 08:48 Vital Signs Temperature 96.1 F L 11/20/16 06:00 Pulse Rate 81 11/20/16 06:00 Respiratory Rate 18 11/20/16 06:00 Blood Pressure 117/73 11/20/16 06:00 O2 Sat by Pulse Oximetry (%) Assessment: 11/20/16 08:48 DETOX COMPLETED,NO WITHDRAWAL SYMPTOM Plan: DETOX COMPLETED,TRANSFER TO [facility] FOR FURTHER LEVEL OF CARE
--- NOTE | 2016-11-20 08:53 | DS ---
[facility] Detox Discharge Summary Admission Date: 11/16/16 Discharge Date: 11/20/16 - History Present History: Alcohol Dependence, Cocaine Dependence Additional Comments: DETOX COMPLETED,TRANSFER TO [facility] FOR CONTINUATION OF FURTHER LEVEL OF CARE Pertinent Past History: LOW BACK PAIN ANXIETY AND DEPRESSION - Physical Exam Results Vital Signs: Vital Signs Temperature 96.1 F L 11/20/16 06:00 Pulse Rate 81 11/20/16 06:00 Respiratory Rate 18 11/20/16 06:00 Blood Pressure 117/73 11/20/16 06:00 O2 Sat by Pulse Oximetry (%) Pertinent Admission Physical Exam Findings: WITHDRAWAL SYMPTOM - Treatment Hospital Course: Detox Protocol Followed, Detoxed Safely, Responded well, Discharged Condition Good, Rehab Referral Accepted Patient has Accepted a Rehab Referral to: [facility] - Medication Discharge Medications: Ambulatory Orders Gabapentin [Neurontin] 300 mg PO HS 06/13/14 Ibuprofen [Motrin -] 800 mg PO DAILY PRN 02/15/16 Omeprazole [Prilosec] 20 mg PO DAILY PRN 02/15/16 Tizanidine HCl [Zanaflex] 2 mg PO HS 02/15/16 - Diagnosis (1) Alcohol dependence with uncomplicated withdrawal Current Visit: Yes Status: Chronic (2) Cocaine dependence Current Visit: Yes Status: Chronic Qualifiers: Substance use status: uncomplicated Qualified Code(s): F14.20 - Cocaine dependence, uncomplicated (3) DM Diabetes mellitus type 2 Current Visit: No Status: Chronic (4) Neuropathy Current Visit: No Status: Chronic (5) Nicotine dependence Current Visit: No Status: Chronic Qualifiers: Substance use status: in withdrawal (6) low back pain herniated disc Current Visit: No Status: Chronic (7) bipolar dosorder with depression Current Visit: No Status: Suspected
[2016-11-20] MEDS: PRENATAL VITAMINS W/ FOLIC ACID TABLET (FP) PO SCH (10:53)
[2016-11-20] MEDS: CYCLOBENZAPRINE HCL 10 MG TABLET (FP) PO SCH ×2 (10:54→21:13)
[2016-11-20] MEDS: PANTOPRAZOLE 40 MG TABLET (FP) PO SCH (10:54)
[2016-11-20] MEDS: NICOTINE 21 MG/24 HOURS TOPICAL PATCH TD SCH (10:54)
[2016-11-20] MEDS: IBUPROFEN 400 MG TABLET (FP) PO PRN (10:57)
[2016-11-20] MEDS: GABAPENTIN 300 MG CAPSULE (FP) PO SCH (21:13)
[2016-11-20] MEDS: THIAMINE HCL 100 MG TABLET (FP) PO SCH (21:13)
[2016-11-21] MEDS: hydrOXYzine PAMOATE 50 MG CAPSULE (FP) PO PRN ×4 (06:33→18:34)
[2016-11-21] MEDS: IBUPROFEN 400 MG TABLET (FP) PO PRN (06:34)
[2016-11-21] MEDS: PANTOPRAZOLE 40 MG TABLET (FP) PO SCH (10:23)
[2016-11-21] MEDS: PRENATAL VITAMINS W/ FOLIC ACID TABLET (FP) PO SCH (10:23)
[2016-11-21] MEDS: NICOTINE 21 MG/24 HOURS TOPICAL PATCH TD SCH (10:24)
[2016-11-21] MEDS: CYCLOBENZAPRINE HCL 10 MG TABLET (FP) PO SCH ×2 (10:24→21:16)
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
[2016-11-21] MEDS: GABAPENTIN 100 MG CAPSULE (FP) PO SCH (17:06)
[2016-11-21] MEDS: MIRTAZAPINE 15 MG TABLET (FP) PO SCH (21:15)
[2016-11-21] MEDS: GABAPENTIN 300 MG CAPSULE (FP) PO SCH (21:16)
[2016-11-21] MEDS: diphenhydrAMINE HCL 50 MG CAPSULE PO PRN (21:16)
[2016-11-21] MEDS: THIAMINE HCL 100 MG TABLET (FP) PO SCH (21:16)
[2016-11-22] MEDS: hydrOXYzine PAMOATE 50 MG CAPSULE (FP) PO PRN ×3 (06:26→18:49)
[2016-11-22] MEDS: GABAPENTIN 100 MG CAPSULE (FP) PO SCH ×2 (09:40→17:19)
[2016-11-22] MEDS: PRENATAL VITAMINS W/ FOLIC ACID TABLET (FP) PO SCH (09:40)
[2016-11-22] MEDS: PANTOPRAZOLE 40 MG TABLET (FP) PO SCH (09:40)
[2016-11-22] MEDS: CYCLOBENZAPRINE HCL 10 MG TABLET (FP) PO SCH ×2 (09:41→21:13)
[2016-11-22] MEDS: NICOTINE 21 MG/24 HOURS TOPICAL PATCH TD SCH (09:42)
[2016-11-22 14:12] LABS: HIV 1 & 2 AB NEGATIVE; HIV 1 AGp24 NEGATIVE
[2016-11-22] MEDS: MIRTAZAPINE 15 MG TABLET (FP) PO SCH (21:13)
[2016-11-22] MEDS: GABAPENTIN 300 MG CAPSULE (FP) PO SCH (21:14)
[2016-11-22] MEDS: THIAMINE HCL 100 MG TABLET (FP) PO SCH (21:14)
[2016-11-22] MEDS: diphenhydrAMINE HCL 50 MG CAPSULE PO PRN (23:10)
[2016-11-23] MEDS: hydrOXYzine PAMOATE 50 MG CAPSULE (FP) PO PRN ×4 (06:22→19:56)
[2016-11-23] MEDS: GABAPENTIN 100 MG CAPSULE (FP) PO SCH ×2 (09:49→17:10)
[2016-11-23] MEDS: CYCLOBENZAPRINE HCL 10 MG TABLET (FP) PO SCH ×2 (09:49→21:09)
[2016-11-23] MEDS: PANTOPRAZOLE 40 MG TABLET (FP) PO SCH (09:49)
[2016-11-23] MEDS: PRENATAL VITAMINS W/ FOLIC ACID TABLET (FP) PO SCH (09:49)
[2016-11-23] MEDS: NICOTINE 21 MG/24 HOURS TOPICAL PATCH TD SCH (09:53)
[2016-11-23] MEDS: MIRTAZAPINE 15 MG TABLET (FP) PO SCH (21:09)
[2016-11-23] MEDS: GABAPENTIN 300 MG CAPSULE (FP) PO SCH (21:09)
[2016-11-23] MEDS: THIAMINE HCL 100 MG TABLET (FP) PO SCH (21:09)
[2016-11-23] MEDS: diphenhydrAMINE HCL 50 MG CAPSULE PO PRN (23:24)
[2016-11-24] MEDS: hydrOXYzine PAMOATE 50 MG CAPSULE (FP) PO PRN ×4 (06:11→18:02)
[2016-11-24] MEDS: PRENATAL VITAMINS W/ FOLIC ACID TABLET (FP) PO SCH (10:01)
[2016-11-24] MEDS: GABAPENTIN 100 MG CAPSULE (FP) PO SCH (10:01)
[2016-11-24] MEDS: PANTOPRAZOLE 40 MG TABLET (FP) PO SCH (10:01)
[2016-11-24] MEDS: CYCLOBENZAPRINE HCL 10 MG TABLET (FP) PO SCH ×2 (10:01→21:14)
[2016-11-24] MEDS: NICOTINE 21 MG/24 HOURS TOPICAL PATCH TD SCH (10:01)
--- NOTE | 2016-11-24 14:59 | PN ---
Psychiatric Progress Note Vital Signs: Vital Signs Period Temp Pulse Resp BP Sys/Dhaliwal Pulse Ox Last 24 Hr 97.4 F 88 16-18 116/76 Date of Session: 11/24/16 Chief Complaint:: "anxious" HPI: Patient is addressing cocaine, cannabis, alcohol, nicotine dependence comorbid Bipolar I disorder. ROS: WNL Current Medications: Active Medications Generic Name Dose Route Start Last Admin Trade Name Freq PRN Reason Stop Dose Admin Acetaminophen 650 mg 11/16/16 16:47 Tylenol - PO Q4H PRN FEVER OR PAIN Al Hydroxide/Mg Hydroxide 30 ml 11/16/16 16:47 Mylanta Oral Suspension - PO Q6H PRN DYSPEPSIA Cyclobenzaprine HCl 10 mg 11/16/16 22:00 11/24/16 10:01 Flexeril - PO 10 mg BID KATERINA Administration Diphenhydramine HCl 50 mg 11/16/16 16:47 11/23/16 23:24 Benadryl - PO 50 mg HSMR1 PRN Administration INSOMNIA Eucalyptus/Menthol/Phenol/Sorbitol 1 each 11/16/16 16:47 Cepastat Lozenge - MM Q4H PRN SORE THROAT Gabapentin 300 mg 11/24/16 22:00 Neurontin - PO TID KATERINA Guaifenesin 10 ml 11/16/16 16:47 Robitussin Dm - PO Q6H PRN COUGH Hydroxyzine Pamoate 50 mg 11/16/16 16:47 11/24/16 13:57 Vistaril - PO 50 mg Q4H PRN Administration AGITATION Ibuprofen 800 mg 11/16/16 17:27 11/21/16 06:34 Motrin - PO 800 mg Q6H PRN Administration SEVERE PAIN Loperamide HCl 4 mg 11/16/16 16:47 Imodium - PO Q6H PRN DIARRHEA Magnesium Citrate 300 ml 11/16/16 16:47 Citroma - PO Q48H PRN CONSTIPATION Magnesium Hydroxide 30 ml 11/16/16 16:47 Milk Of Magnesia - PO DAILY PRN CONSTIPATION Mirtazapine 15 mg 11/21/16 22:00 11/23/16 21:09 Remeron - PO 15 mg HS KATERINA Administration Nicotine 14 mg 11/16/16 17:00 11/24/16 10:01 Nicoderm Patch - TD 14 mg DAILY KATERINA Administration Nicotine Polacrilex 2 mg 11/16/16 16:47 Nicorette Gum - BC Q2H PRN NICOTINE REPLACEMENT RX Pantoprazole Sodium 40 mg 11/16/16 17:30 11/24/16 10:01 Protonix - PO 40 mg DAILY KATERINA Administration Multivit/Folic Acid/Iron 1 tab 11/17/16 10:00 11/24/16 10:01 Vitamins (Sjr) - PO 1 tab DAILY KATERINA Administration Pseudoephedrine/Triprolidine 1 combo 11/16/16 16:47 Actifed - PO TID PRN NASAL CONGESTION Thiamine HCl 100 mg 11/16/16 22:00 11/23/16 21:09 Vitamin B1 - PO 100 mg HS KATERINA Administration Current Side Effect: No Lab tests ordered: No Lab tests reviewed: Yes Provider note:: Patient mainly spoke about issues involving his problematic relatinship with his , thinking and talking about it makes him more anxious , he can't focus in groups, states "it's destructs me, I am thinking about my all the time". Reviewed medication with the patient discussed treatment plan with the patient , will increase Gabapentin 300 mg po tid, supportive therapy provided. Continue to monitor progress. Total face to face time:: 35 Mental Status Exam - Mental Status Exam Alert and Oriented to: Time, Place, Person Cognitive Function: Good Patient Appearance: Well Groomed Mood: Sad, Anxious Affect: Appropriate, Mood Congruent Patient Behavior: Appropriate, Cooperative Speech Pattern: Clear, Appropriate Voice Loudness: Normal Thought Process: Goal Oriented Thought Disorder: Not Present Hallucinations: Denies Suicidal Ideation: Denies Homicidal Ideation: Denies Insight/Judgement: Fair Sleep: Fair Appetite: Fair Muscle strength/Tone: Normal Gait/Station: Normal Psychiatric Treatment Plan - Problem List (1) Lumbago Current Visit: Yes Qualifiers: Chronicity: chronic Back pain laterality: bilateral Sciatica presence: with sciatica Sciatica laterality: bilateral sciatica Qualified Code(s): M54.42 - Lumbago with sciatica, left side (2) Cocaine dependence Current Visit: Yes Qualifiers: Substance use status: uncomplicated Qualified Code(s): F14.20 - Cocaine dependence, uncomplicated (3) Neuropathy Current Visit: No (4) Nicotine dependence Current Visit: No Qualifiers: Substance use status: in withdrawal (5) Sciatica Current Visit: No (6) bipolar dosorder with depression Current Visit: No (7) Alcohol dependence Current Visit: Yes (8) Cannabis dependence Current Visit: Yes
[2016-11-24] MEDS: IBUPROFEN 400 MG TABLET (FP) PO PRN (15:14)
[2016-11-24] MEDS: MIRTAZAPINE 15 MG TABLET (FP) PO SCH (21:14)
[2016-11-24] MEDS: GABAPENTIN 300 MG CAPSULE (FP) PO SCH (21:14)
[2016-11-24] MEDS: THIAMINE HCL 100 MG TABLET (FP) PO SCH (21:14)
[2016-11-24] MEDS: diphenhydrAMINE HCL 50 MG CAPSULE PO PRN (23:51)
[2016-11-25] MEDS: GABAPENTIN 300 MG CAPSULE (FP) PO SCH ×3 (06:10→21:18)
[2016-11-25] MEDS: hydrOXYzine PAMOATE 50 MG CAPSULE (FP) PO PRN ×4 (06:11→20:54)
[2016-11-25] MEDS: CYCLOBENZAPRINE HCL 10 MG TABLET (FP) PO SCH ×2 (09:59→21:18)
[2016-11-25] MEDS: PRENATAL VITAMINS W/ FOLIC ACID TABLET (FP) PO SCH (09:59)
[2016-11-25] MEDS: PANTOPRAZOLE 40 MG TABLET (FP) PO SCH (09:59)
[2016-11-25] MEDS: NICOTINE 21 MG/24 HOURS TOPICAL PATCH TD SCH (10:01)
[2016-11-25] MEDS: THIAMINE HCL 100 MG TABLET (FP) PO SCH (21:18)
[2016-11-25] MEDS: MIRTAZAPINE 15 MG TABLET (FP) PO SCH (21:19)
[2016-11-25] MEDS: IBUPROFEN 400 MG TABLET (FP) PO PRN (22:59)
[2016-11-25] MEDS: diphenhydrAMINE HCL 50 MG CAPSULE PO PRN (23:00)
[2016-11-26] MEDS: GABAPENTIN 300 MG CAPSULE (FP) PO SCH ×3 (06:26→21:21)
[2016-11-26] MEDS: hydrOXYzine PAMOATE 50 MG CAPSULE (FP) PO PRN ×3 (06:27→19:54)
[2016-11-26] MEDS: NICOTINE 21 MG/24 HOURS TOPICAL PATCH TD SCH (10:04)
[2016-11-26] MEDS: PRENATAL VITAMINS W/ FOLIC ACID TABLET (FP) PO SCH (10:06)
[2016-11-26] MEDS: CYCLOBENZAPRINE HCL 10 MG TABLET (FP) PO SCH ×2 (10:06→21:20)
[2016-11-26] MEDS: PANTOPRAZOLE 40 MG TABLET (FP) PO SCH (10:06)
[2016-11-26] MEDS: MIRTAZAPINE 15 MG TABLET (FP) PO SCH (21:20)
[2016-11-26] MEDS: THIAMINE HCL 100 MG TABLET (FP) PO SCH (21:21)
[2016-11-26] MEDS: diphenhydrAMINE HCL 50 MG CAPSULE PO PRN ×2 (21:21→23:27)
[2016-11-27] MEDS: hydrOXYzine PAMOATE 50 MG CAPSULE (FP) PO PRN ×5 (06:25→23:06)
[2016-11-27] MEDS: GABAPENTIN 300 MG CAPSULE (FP) PO SCH ×3 (06:25→21:16)
[2016-11-27] MEDS: PRENATAL VITAMINS W/ FOLIC ACID TABLET (FP) PO SCH (09:48)
[2016-11-27] MEDS: CYCLOBENZAPRINE HCL 10 MG TABLET (FP) PO SCH ×2 (09:48→21:16)
[2016-11-27] MEDS: PANTOPRAZOLE 40 MG TABLET (FP) PO SCH (09:48)
[2016-11-27] MEDS: NICOTINE 14 MG/24 HOURS TOPICAL PATCH TD SCH (09:49)
[2016-11-27] MEDS: IBUPROFEN 400 MG TABLET (FP) PO PRN (13:11)
--- NOTE | 2016-11-27 13:28 | PN ---
S Progress Note Note: BGM IS 97,HAS BEEN NORMAL RANGE,WILL D/C BGM
[2016-11-27] MEDS: THIAMINE HCL 100 MG TABLET (FP) PO SCH (21:16)
[2016-11-27] MEDS: diphenhydrAMINE HCL 50 MG CAPSULE PO PRN (21:17)
[2016-11-27] MEDS: MIRTAZAPINE 15 MG TABLET (FP) PO SCH (21:17)
[2016-11-28] MEDS: hydrOXYzine PAMOATE 50 MG CAPSULE (FP) PO PRN ×5 (06:17→22:49)
[2016-11-28] MEDS: GABAPENTIN 300 MG CAPSULE (FP) PO SCH ×3 (06:17→21:22)
[2016-11-28] MEDS: PANTOPRAZOLE 40 MG TABLET (FP) PO SCH (09:45)
[2016-11-28] MEDS: NICOTINE 14 MG/24 HOURS TOPICAL PATCH TD SCH (09:45)
[2016-11-28] MEDS: CYCLOBENZAPRINE HCL 10 MG TABLET (FP) PO SCH ×2 (09:45→21:22)
[2016-11-28] MEDS: PRENATAL VITAMINS W/ FOLIC ACID TABLET (FP) PO SCH (09:45)
[2016-11-28] MEDS: IBUPROFEN 400 MG TABLET (FP) PO PRN (14:23)
[2016-11-28] MEDS: diphenhydrAMINE HCL 50 MG CAPSULE PO PRN (21:22)
[2016-11-28] MEDS: MIRTAZAPINE 15 MG TABLET (FP) PO SCH (21:22)
[2016-11-28] MEDS: THIAMINE HCL 100 MG TABLET (FP) PO SCH (21:22)
[2016-11-29] MEDS: GABAPENTIN 300 MG CAPSULE (FP) PO SCH ×3 (06:10→21:30)
[2016-11-29] MEDS: hydrOXYzine PAMOATE 50 MG CAPSULE (FP) PO PRN ×4 (06:11→21:30)
[2016-11-29] MEDS: CYCLOBENZAPRINE HCL 10 MG TABLET (FP) PO SCH ×2 (09:35→21:30)
[2016-11-29] MEDS: PANTOPRAZOLE 40 MG TABLET (FP) PO SCH (09:35)
[2016-11-29] MEDS: PRENATAL VITAMINS W/ FOLIC ACID TABLET (FP) PO SCH (09:35)
[2016-11-29] MEDS: NICOTINE 14 MG/24 HOURS TOPICAL PATCH TD SCH (09:35)
[2016-11-29] MEDS: IBUPROFEN 400 MG TABLET (FP) PO PRN ×2 (12:04→23:06)
[2016-11-29] MEDS: MIRTAZAPINE 15 MG TABLET (FP) PO SCH (21:30)
[2016-11-29] MEDS: THIAMINE HCL 100 MG TABLET (FP) PO SCH (21:30)
[2016-11-29] MEDS: diphenhydrAMINE HCL 50 MG CAPSULE PO PRN (23:06)
[2016-11-30] MEDS: hydrOXYzine PAMOATE 50 MG CAPSULE (FP) PO PRN ×3 (06:16→21:33)
[2016-11-30] MEDS: GABAPENTIN 300 MG CAPSULE (FP) PO SCH ×3 (06:16→21:33)
[2016-11-30] MEDS: PANTOPRAZOLE 40 MG TABLET (FP) PO SCH (09:49)
[2016-11-30] MEDS: NICOTINE 14 MG/24 HOURS TOPICAL PATCH TD SCH (09:49)
[2016-11-30] MEDS: CYCLOBENZAPRINE HCL 10 MG TABLET (FP) PO SCH ×2 (09:49→21:33)
[2016-11-30] MEDS: PRENATAL VITAMINS W/ FOLIC ACID TABLET (FP) PO SCH (09:49)
[2016-11-30] MEDS: IBUPROFEN 400 MG TABLET (FP) PO PRN ×2 (09:50→21:34)
[2016-11-30] MEDS: THIAMINE HCL 100 MG TABLET (FP) PO SCH (21:33)
[2016-11-30] MEDS: MIRTAZAPINE 15 MG TABLET (FP) PO SCH (21:36)
[2016-11-30] MEDS: diphenhydrAMINE HCL 50 MG CAPSULE PO PRN (23:28)
[2016-12-01] MEDS: hydrOXYzine PAMOATE 50 MG CAPSULE (FP) PO PRN ×4 (06:10→22:25)
[2016-12-01] MEDS: GABAPENTIN 300 MG CAPSULE (FP) PO SCH ×3 (06:10→21:11)
[2016-12-01] MEDS: PANTOPRAZOLE 40 MG TABLET (FP) PO SCH (10:03)
[2016-12-01] MEDS: PRENATAL VITAMINS W/ FOLIC ACID TABLET (FP) PO SCH (10:03)
[2016-12-01] MEDS: CYCLOBENZAPRINE HCL 10 MG TABLET (FP) PO SCH ×2 (10:03→21:11)
[2016-12-01] MEDS: NICOTINE 14 MG/24 HOURS TOPICAL PATCH TD SCH (10:03)
[2016-12-01] MEDS: THIAMINE HCL 100 MG TABLET (FP) PO SCH (21:11)
[2016-12-01] MEDS: MIRTAZAPINE 15 MG TABLET (FP) PO SCH (21:11)
[2016-12-02] MEDS: GABAPENTIN 300 MG CAPSULE (FP) PO SCH ×3 (06:27→21:18)
[2016-12-02] MEDS: hydrOXYzine PAMOATE 50 MG CAPSULE (FP) PO PRN ×4 (06:27→22:51)
[2016-12-02] MEDS: CYCLOBENZAPRINE HCL 10 MG TABLET (FP) PO SCH ×2 (09:59→21:18)
[2016-12-02] MEDS: PRENATAL VITAMINS W/ FOLIC ACID TABLET (FP) PO SCH (09:59)
[2016-12-02] MEDS: NICOTINE 14 MG/24 HOURS TOPICAL PATCH TD SCH (09:59)
[2016-12-02] MEDS: PANTOPRAZOLE 40 MG TABLET (FP) PO SCH (09:59)
[2016-12-02] MEDS: IBUPROFEN 400 MG TABLET (FP) PO PRN ×2 (10:01→21:18)
[2016-12-02] MEDS: THIAMINE HCL 100 MG TABLET (FP) PO SCH (21:18)
[2016-12-02] MEDS: MIRTAZAPINE 15 MG TABLET (FP) PO SCH (21:18)
[2016-12-02] MEDS: diphenhydrAMINE HCL 50 MG CAPSULE PO PRN (21:20)
[2016-12-03] MEDS: hydrOXYzine PAMOATE 50 MG CAPSULE (FP) PO PRN ×4 (06:15→23:25)
[2016-12-03] MEDS: GABAPENTIN 300 MG CAPSULE (FP) PO SCH ×3 (06:15→21:10)
[2016-12-03 06:44] VITALS: TEMP 97.5
[2016-12-03] MEDS: PRENATAL VITAMINS W/ FOLIC ACID TABLET (FP) PO SCH (09:49)
[2016-12-03] MEDS: NICOTINE 14 MG/24 HOURS TOPICAL PATCH TD SCH (09:49)
[2016-12-03] MEDS: CYCLOBENZAPRINE HCL 10 MG TABLET (FP) PO SCH ×2 (09:49→21:10)
[2016-12-03] MEDS: PANTOPRAZOLE 40 MG TABLET (FP) PO SCH (09:49)
[2016-12-03] MEDS: MIRTAZAPINE 15 MG TABLET (FP) PO SCH (21:10)
[2016-12-03] MEDS: THIAMINE HCL 100 MG TABLET (FP) PO SCH (21:10)
[2016-12-03] MEDS: diphenhydrAMINE HCL 50 MG CAPSULE PO PRN (21:10)
[2016-12-03] MEDS: IBUPROFEN 400 MG TABLET (FP) PO PRN (23:25)
[2016-12-04] MEDS: GABAPENTIN 300 MG CAPSULE (FP) PO SCH ×3 (06:14→21:11)
[2016-12-04] MEDS: hydrOXYzine PAMOATE 50 MG CAPSULE (FP) PO PRN ×3 (06:14→21:14)
[2016-12-04] MEDS: PRENATAL VITAMINS W/ FOLIC ACID TABLET (FP) PO SCH (09:57)
[2016-12-04] MEDS: CYCLOBENZAPRINE HCL 10 MG TABLET (FP) PO SCH ×2 (09:58→21:11)
[2016-12-04] MEDS: NICOTINE 14 MG/24 HOURS TOPICAL PATCH TD SCH (09:58)
[2016-12-04] MEDS: PANTOPRAZOLE 40 MG TABLET (FP) PO SCH (09:58)
[2016-12-04] MEDS: THIAMINE HCL 100 MG TABLET (FP) PO SCH (21:12)
[2016-12-04] MEDS: MIRTAZAPINE 15 MG TABLET (FP) PO SCH (21:13)
[2016-12-04] MEDS: IBUPROFEN 400 MG TABLET (FP) PO PRN (21:14)
[2016-12-04] MEDS: diphenhydrAMINE HCL 50 MG CAPSULE PO PRN (22:29)
[2016-12-05] MEDS: hydrOXYzine PAMOATE 50 MG CAPSULE (FP) PO PRN ×2 (06:10→10:54)
[2016-12-05] MEDS: GABAPENTIN 300 MG CAPSULE (FP) PO SCH ×2 (06:10→14:05)
[2016-12-05 07:02] VITALS: BP 102/57; PULSE 81
[2016-12-05] MEDS: PRENATAL VITAMINS W/ FOLIC ACID TABLET (FP) PO SCH (09:43)
[2016-12-05] MEDS: PANTOPRAZOLE 40 MG TABLET (FP) PO SCH (09:43)
[2016-12-05] MEDS: CYCLOBENZAPRINE HCL 10 MG TABLET (FP) PO SCH (09:43)
[2016-12-05] MEDS ORDERED: NICOTINE 7 MG/24 HOURS TOPICAL PATCH TD SCH (10:00)
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
[2016-12-05] MEDS ORDERED: HYDROCORTISONE 0.5% TOPICAL OINTMENT TUBE TP SCH (22:00)
== END 2016-12-05 15:15 | disposition home or self-care (01) | DRG 895 ==
LOC: YASAS 15:39 → Y6N 16:42 → Y5N 11-20 11:45
PROVIDERS: ADMIT Internal Medicine; ATTEND Psychiatry & Neurology Psychiatry
PROC: HZ2ZZZZ Detoxification Services for Substance Abuse Treatment (ICD-10-PCS; principal; 2016-11-20)
PROC: HZ42ZZZ Group Counseling for Substance Abuse Treatment, Cognitive-Behavioral (ICD-10-PCS; 2016-12-05)
DX: F10.230 Alcohol dependence with withdrawal, uncomplicated (principal); F14.20 Cocaine dependence, uncomplicated; F12.20 Cannabis dependence, uncomplicated; F17.210 Nicotine dependence, cigarettes, uncomplicated; F31.9 Bipolar disorder, unspecified; M54.41 Lumbago with sciatica, right side; M54.42 Lumbago with sciatica, left side; G89.29 Other chronic pain
CPT/HCPCS: 36415; 80053; 81003; 81015; 85027; 86593; 87389; 90732; 93005; 93010; G0009

== ENCOUNTER 2018-03-24 18:18 | Inpatient (IN) | payer OTHER ==
[2018-03-24 19:45] VITALS: BMI 26.6
--- NOTE | 2018-03-24 20:57 | HP ---
CIWA Score - CIWA Score Nausea/Vomitin-No Nausea/No Vomiting Muscle Tremors: None Anxiety: 5 Agitation: 5 Paroxysmal Sweats: 3 Orientation: 0-Oriented Tacttile Disturbances: 3-Moderate Itch/Numb/Burn Auditory Disturbances: 3-Moderate Harsh/Frighten Visual Disturbances: 3-Moderate Sensitivity Headache: 3-Moderate CIWA-Ar Total Score: 25 Admission ROS BHS - HPI Chief Complaint: SEEKING DETOX FOR C/O ALCOHOL AND WITHDRAWAL SX'S Allergies/Adverse Reactions: Allergies Allergy/AdvReac Type Severity Reaction Status Date / Time No Known Allergies Allergy Verified 03/24/18 20:23 History of Present Illness: 57 Y.O. MALE WITH CRACK AND ALCOHOL DEPENDENCE HERE FOR DETOX. CLIENT IS KNOWN TO THIS PROGRAM. SELF REFERRED. PRESENTS WITH C/O WITHDRAWAL SX'S. STATES LAST DRINK TODAY. REPORTS HE DRINKING DAILY. LAST DRINK EARLIER THIS AFTERNOON. STATES HE DRANK A 6 PACK OF "TALL BOYS" (16 OZ CANS) TODAY. LONGEST CLLEAN TIME REPORTED IS 2.5 YEARS, SELF SUSTAINED. PMHX- SCIATICA, MENTAL HEALTH- ADD, ANXIETY, DEPRESSION. DENIES PAST/PRESENT HX/O SI/HI/ATTEMPTS, AVH, SEIZURE D/O. Exam Limitations: No Limitations - Ebola screening Have you traveled outside of the country in the last 21 days: No Have you had contact with anyone from an Ebola affected area: No Have you been sick,other than usual withdrawal symptoms: No Do you have a fever: No - Review of Systems Constitutional: Malaise EENT: reports: No Symptoms Reported Respiratory: reports: No Symptoms reported Cardiac: reports: No Symptoms Reported GI: reports: No Symptoms Reported : reports: No Symptoms Reported Musculoskeletal: reports: Back Pain, Joint Pain Integumentary: reports: No Symptoms Reported Neuro: reports: No Symptoms reported Endocrine: reports: No Symptoms Reported Hematology: reports: No Symptoms Reported Psychiatric: reports: Agitated, Anxious, Depressed, other (RESTLESS/JUMPY) Other Systems: Reviewed and Negative Patient History - Patient Medical History Hx Anemia: No Hx Asthma: No Hx Chronic Obstructive Pulmonary Disease (COPD): No Hx Cancer: No Hx Cardiac Disorders: No Hx Congestive Heart Failure: No Hx Hypertension: No Hx Hypercholesterolemia: Yes (NOT CURRENTLY ON MED ?) Hx Pacemaker: No HX Cerebrovascular Accident: No Hx Seizures: No Hx Dementia: No Hx Diabetes: No Hx Gastrointestinal Disorders: No Hx Liver Disease: No Hx Genitourinary Disorders: No Hx Sexually Transmitted Disorders: Yes (gonorrhea at 18 yrs of age) Hx Renal Disease (ESRD): No Hx Thyroid Disease: No Hx Human Immunodeficiency Virus (HIV): No Hx Hepatitis C: No Hx Depression: Yes Hx Suicide Attempt: No Hx Bipolar Disorder: Yes (AND OCD) Hx Schizophrenia: No Other Medical History: SCIATICA - Patient Surgical History Past Surgical History: Yes Hx Neurologic Surgery: No Hx Cataract Extraction: No Hx Cardiac Surgery: No Hx Lung Surgery: No Hx Breast Surgery: No Hx Breast Biopsy: No Hx Abdominal Surgery: No Hx Appendectomy: No Hx Cholecystectomy: No Hx Genitourinary Surgery: No Hx Section: No Hx Orthopedic Surgery: No Other Surgical History: left inguinal hernia repair in 2002 Anesthesia Reaction: No - PPD History Previous Implant?: Yes Documented Results: Negative w/[facility] Yes Date: 07/17/16 Results: 0 mm PPD to be Administered?: Yes - Smoking Cessation Smoking history: Current every day smoker Have you smoked in the past 12 months: Yes Aproximately how many cigarettes per day: 10 Cigars Per Day: 0 Hx Chewing Tobacco Use: No Initiated information on smoking cessation: Yes 'Breaking Loose' booklet given: 03/24/18 - Substance & Tx. History Hx Alcohol Use: Yes Hx Substance Use: Yes Substance Use Type: Alcohol, Cocaine Hx Substance Use Treatment: Yes ([facility]) - Substances Abused Alcohol Route: Oral Frequency: Daily Amount used: BEER- 2 SIX PACK (16 oz) Age of first use: 9 Date of Last Use: 03/24/18 Cocaine Route: Smoking Frequency: Daily Amount used: 3g Age of first use: 27 Date of Last Use: 03/23/18 Family Disease History - Family Disease History Family Disease History: Diabetes: Mother (), Respiratory: Father ( PARKINSONS DZ-), Other: Grandparent (ALCOHOLISM-), Brother ( ALCOHOLISM) Admission Physical Exam S - Vital Signs Vital Signs: Vital Signs - 24 hr 03/24/18 19:41 Temperature 97.8 F Pulse Rate 95 H Respiratory 18 Rate Blood Pressure 124/83 - Physical General Appearance: Yes: Moderate Distress, Irritable, Sweating, Anxious, Other (EXTREMELY RESTLESS/JUMPY/SCRATCHING OF SKIN) HEENTM: Yes: EOMI, Normocephalic, Normal Voice, ANA, Pharynx Normal, Other ( MISSING TEETH) Respiratory: Yes: Chest Non-Tender, Lungs Clear, Normal Breath Sounds, No Respiratory Distress, No Accessory Muscle Use Neck: Yes: No masses,lesions,Nodules, Supple, Trachea in good position Breast: Yes: Breast Exam Deferred Cardiology: Yes: Regular Rhythm, Regular Rate, S1, S2 Abdominal: Yes: Non Tender, Soft, Decreased BS Genitourinary: Yes: Other (NO C/O) Back: Yes: Normal Inspection Musculoskeletal: Yes: full range of Motion, Gait Steady Extremities: Yes: Normal Capillary Refill, Normal Range of Motion, Non-Tender Neurological: Yes: Alert, Motor Strength 5/5, Other Integumentary: Yes: Warm, Moist, Other (FLUSHED) Lymphatic: Yes: Within Normal Limits - Diagnostic (1) Lumbago Current Visit: Yes Status: Chronic Qualifiers: Chronicity: chronic Back pain laterality: bilateral Sciatica presence: with sciatica Sciatica laterality: bilateral sciatica Qualified Code(s): M54.42 - Lumbago with sciatica, left side (2) Substance induced mood disorder Current Visit: Yes Status: Acute (3) Alcohol dependence with uncomplicated withdrawal Current Visit: Yes Status: Chronic (4) Cocaine dependence Current Visit: Yes Status: Chronic Qualifiers: Substance use status: uncomplicated Qualified Code(s): F14.20 - Cocaine dependence, uncomplicated (5) Nicotine dependence Current Visit: Yes Status: Chronic Qualifiers: Substance use status: in withdrawal (6) Sciatica Current Visit: Yes Status: Chronic Qualifiers: Laterality: unspecified laterality Qualified Code(s): M54.30 - Sciatica, unspecified side Cleared for Admission [facility] - Detox or Rehab [facility] Level of Care: Medically Managed Detox Regimen/Protocol: Librium Claeared for Rehab Admission: No [facility] Breath Alcohol Content Breath Alcohol Content: 0.086 Urine Drug Screen - Results Drug Screen Negative: No Urine Drug Screen Results: FRANKLIN-Cocaine
[2018-03-24] MEDS ORDERED: P-EPHED 60MG/TRIPROLIDI 2.5MG TABLET PO PRN (21:06)
[2018-03-24] MEDS ORDERED: MENTHOL/PHENOL 1 EACH UD MM PRN (21:06)
[2018-03-24] MEDS ORDERED: MAG HYDROX/AL HYDROX/SIMETH 30 ML UNIT-DOSE CUP PO PRN (21:06)
[2018-03-24] MEDS ORDERED: MAGNESIUM CITRATE 300 ML BOTTLE PO PRN (21:06)
[2018-03-24] MEDS ORDERED: ACETAMINOPHEN 325 MG TABLET (FP) PO PRN (21:06)
[2018-03-24] MEDS ORDERED: MAGNESIUM HYDROX 2400MG/30ML ORAL SUSPENSION 30 ML CUP PO PRN (21:06)
[2018-03-24] MEDS ORDERED: NICOTINE POLACRILEX 2 MG GUM BC PRN (21:06)
[2018-03-24] MEDS ORDERED: guaiFENesin/D-METHORPHAN HB 10 ML UNIT-DOSE CUPS PO PRN (21:06)
[2018-03-24] MEDS ORDERED: LOPERAMIDE HCL 2 MG CAPSULE PO PRN (21:06)
[2018-03-24] MEDS: THIAMINE HCL 100 MG TABLET (FP) PO SCH (23:24)
[2018-03-24 23:28] LABS: URINE APPEARANCE CLEAR; URINE BILIRUBIN NEGATIVE (<2.0 mg/dL); URINE COLOR STRAW; URINE GLUCOSE (UA) NEGATIVE (NEGATIVE); URINE KETONE NEGATIVE (NEGATIVE); URINE LEUK ESTERASE NEGATIVE (NEGATIVE); URINE NITRITE NEGATIVE (NEGATIVE); URINE PROTEIN NEGATIVE (NEGATIVE); URINE UROBILINOGEN NEGATIVE mg/dL (0.2-1.0)
[2018-03-25] MEDS: chlordiazePOXIDE HCL 25 MG CAPSULE PO SCH ×5 (00:28→22:55)
[2018-03-25 10:16] LABS: HEMATOCRIT 42.2 % (35.4-49); HEMOGLOBIN 13.8 GM/dL (11.7-16.9); MCH 29.3 pg (25.7-33.7); MCHC 32.7 g/dl (32.0-35.9); MEAN CELL VOLUME 89.4 fl (80-96); MEAN PLT VOLUME 6.8 fl (7.5-11.1); PLATELET COUNT 282 K/MM3 (134-434); RBC 4.72 M/mm3 (4.00-5.60); WHITE BLOOD COUNT 6.3 K/mm3 (4.0-10.0)
[2018-03-25 10:29] LABS: ALBUMIN 3.9 g/dl (3.4-5.0); ALK PHOS 61 U/L (45-117); ANION GAP 5 MMOL/L (8-16); BILIRUBIN,TOTAL 0.5 mg/dL (0.2-1); BLOOD UREA NITROGEN 11 mg/dL (7-18); CALCIUM 9.2 mg/dL (8.5-10.1); CHLORIDE 103 mmol/L (98-107); CO2 30 mmol/L (21-32); CREATININE 0.9 mg/dL (0.55-1.3); GLUCOSE,RANDOM 159 mg/dL (74-106); POTASSIUM 4.3 mmol/L (3.5-5.1); SGOT/AST 26 U/L (15-37); SGPT/ALT 33 U/L (13-61); SODIUM 137 mmol/L (136-145); TOT PROT 7.4 g/dl (6.4-8.2)
[2018-03-25] MEDS: NICOTINE 21 MG/24 HOURS TOPICAL PATCH TD SCH (10:45)
[2018-03-25] MEDS: PRENATAL VITAMINS W/ FOLIC ACID TABLET (FP) PO SCH (10:45)
--- NOTE | 2018-03-25 11:57 | PN ---
S CIWA - CIWA Score Nausea/Vomitin-No Nausea/No Vomiting Muscle Tremors: 3 Anxiety: 4-Mod. Anxious/Guarded Agitation: 3 Paroxysmal Sweats: 3 Orientation: 0-Oriented Tacttile Disturbances: 0-None Auditory Disturbances: 0-None Visual Disturbances: 0-None Headache: 1-Very Mild CIWA-Ar Total Score: 14 BHS Progress Note (SOAP) Subjective: agitation anxiety sweats irritable body aches Objective: 03/25/18 11:56 Vital Signs Temperature 96.1 F L 03/25/18 11:04 Pulse Rate 76 03/25/18 11:04 Respiratory Rate 17 03/25/18 11:04 Blood Pressure 110/66 03/25/18 11:04 O2 Sat by Pulse Oximetry (%) Laboratory Tests 03/24/18 03/25/18 03/25/18 23:00 07:00 07:00 WBC 6.3 RBC 4.72 Hgb 13.8 Hct 42.2 MCV 89.4 MCH 29.3 MCHC 32.7 RDW 13.0 Plt Count 282 D MPV 6.8 L Sodium 137 Potassium 4.3 Chloride 103 Carbon Dioxide 30 Anion Gap 5 L BUN 11 Creatinine 0.9 Creat Clearance w eGFR > 60 Random Glucose 159 H Calcium 9.2 Total Bilirubin 0.5 AST 26 ALT 33 Alkaline Phosphatase 61 Total Protein 7.4 Albumin 3.9 Urine Color Straw Urine Appearance Clear Urine pH 6.0 Ur Specific [place] 1.003 L Urine Protein Negative Urine Glucose (UA) Negative Urine Ketones Negative Urine Blood 1+ H Urine Nitrite Negative Urine Bilirubin Negative Urine Urobilinogen Negative Ur Leukocyte Esterase Negative Urine WBC (Auto) 1 Urine RBC (Auto) None RPR Titer 03/25/18 07:00 WBC RBC Hgb Hct MCV MCH MCHC RDW Plt Count MPV Sodium Potassium Chloride Carbon Dioxide Anion Gap BUN Creatinine Creat Clearance w eGFR Random Glucose Calcium Total Bilirubin AST ALT Alkaline Phosphatase Total Protein Albumin Urine Color Urine Appearance Urine pH Ur Specific [place] Urine Protein Urine Glucose (UA) Urine Ketones Urine Blood Urine Nitrite Urine Bilirubin Urine Urobilinogen Ur Leukocyte Esterase Urine WBC (Auto) Urine RBC (Auto) RPR Titer Nonreactive aaox3 ambulating no acute distress Assessment: 03/25/18 11:57 withdrawal sx Plan: continue detox increase fluids
--- NOTE | 2018-03-25 12:12 | EKG ---
Test Reason : Blood Pressure : / mmHG Vent. Rate : 092 BPM Atrial Rate : 092 BPM P-R Int : 174 ms QRS Dur : 094 ms QT Int : 388 ms P-R-T Axes : 065 000 040 degrees QTc Int : 479 ms NORMAL SINUS RHYTHM NORMAL ECG WHEN COMPARED WITH ECG OF 16-NOV-2016 17:53, NO SIGNIFICANT CHANGE WAS FOUND Confirmed by ASHLEY GUILLEN MD ([id number]) on 03/25/2018 12:12:28 PM Referred By: Confirmed By:ASHLEY GUILLEN MD
--- NOTE | 2018-03-25 13:25 | CONSULT ---
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 Patient denies suicidal, hinicidal history. Substance Abuse History: - Smoking Cessation. Smoking history: Current every day smoker. Have you smoked in the past 12 months: Yes. Aproximately how many cigarettes per day: 10. Cigars Per Day: 0. Hx Chewing Tobacco Use: No. Initiated information on smoking cessation: Yes. 'Breaking Loose' booklet given : 03/24/18. - Substance & Tx. History. Hx Alcohol Use: Yes. Hx Substance Use : Yes. Substance Use Type: Alcohol, Cocaine. Hx Substance Use Treatment: Yes ( [facility]). - Substances Abused. Alcohol. Route: Oral. Frequency: Daily. Amount used: BEER- 2 SIX PACK (16 oz). Age of first use: 9. Date of Last Use: 03/24/18. Cocaine. Route: Smoking. Frequency: Daily. Amount used: 3g. Age of first use: 27. Date of Last Use: 03/23/18 Medical History: LBP, Lumbago, DM-2, Neuropathy, Hypercholesterolemia Psychiatric History: Patient reports history of Bipolar Disorder, as per [facility] diagnosed with Schizoaffective disorder as well. Reports no psychiatric hospitalization history, denies suicidal, homicidal history. Patient reports taking prior to admission: [place] 600mg po qhs Physical/Sexual Abuse/Trauma History: Denies Additional Comment: [place] 600mg po qhs Mental Status Exam - Mental Status Exam Alert and Oriented to: Person Cognitive Function: Fair Patient Appearance: Unkempt Mood: Apprehensive Affect: Mood Congruent Patient Behavior: Talkative, Cooperative Speech Pattern: Appropriate Voice Loudness: Mildly Soft/Quiet Thought Process: Goal Oriented Thought Disorder: Being Controlled Hallucinations: Denies Suicidal Ideation: Denies Homicidal Ideation: Denies Insight/Judgement: Fair Sleep: Difficulty falling asleep Appetite: Fair Muscle strength/Tone: Normal Gait/Station: Normal Additional Comments: [place]ia 600mg po qhs. [place] blood level Psychiatric Findings - Problem List (Hundred 1, 2,3) (1) Substance induced mood disorder Current Visit: Yes Status: Acute (2) Alcohol dependence with uncomplicated withdrawal Current Visit: Yes Status: Chronic (3) Cocaine dependence Current Visit: Yes Status: Chronic Qualifiers: Substance use status: uncomplicated Qualified Code(s): F14.20 - Cocaine dependence, uncomplicated (4) Lumbago Current Visit: Yes Status: Chronic Qualifiers: Chronicity: chronic Back pain laterality: bilateral Sciatica presence: with sciatica Sciatica laterality: bilateral sciatica Qualified Code(s): M54.42 - Lumbago with sciatica, left side (5) Nicotine dependence Current Visit: Yes Status: Chronic Qualifiers: Substance use status: in withdrawal (6) Sciatica Current Visit: Yes Status: Chronic Qualifiers: Laterality: unspecified laterality Qualified Code(s): M54.30 - Sciatica, unspecified side (7) Alcohol dependence Current Visit: No Status: Acute (8) Cannabis dependence Current Visit: No Status: Acute (9) DM Diabetes mellitus type 2 Current Visit: No Status: Chronic (10) Neuropathy Current Visit: No Status: Chronic (11) hypercholesterolemia Current Visit: No Status: Chronic (12) bipolar dosorder with depression Current Visit: No Status: Suspected - Initial Treatment Plan Initial Treatment Plan: [place]ia 600mg po qhs. [place] blood level
[2018-03-25] MEDS: THIAMINE HCL 100 MG TABLET (FP) PO SCH (22:55)
[2018-03-25] MEDS: LITHIUM CARBONATE 300 MG CAPSULE (FP) PO SCH (22:55)
[2018-03-26] MEDS: IBUPROFEN 400 MG TABLET (FP) PO PRN ×2 (03:48→11:08)
[2018-03-26] MEDS: chlordiazePOXIDE HCL 25 MG CAPSULE PO PRN ×2 (03:49→15:02)
[2018-03-26] MEDS: chlordiazePOXIDE HCL 25 MG CAPSULE PO SCH ×3 (05:43→17:31)
[2018-03-26] MEDS: PRENATAL VITAMINS W/ FOLIC ACID TABLET (FP) PO SCH (11:00)
[2018-03-26] MEDS: NICOTINE 21 MG/24 HOURS TOPICAL PATCH TD SCH (11:00)
--- NOTE | 2018-03-26 14:06 | PN ---
S CIWA - CIWA Score Nausea/Vomitin-No Nausea/No Vomiting Muscle Tremors: 3 Anxiety: 3 Agitation: 3 Paroxysmal Sweats: 3 Orientation: 0-Oriented Tacttile Disturbances: 0-None Auditory Disturbances: 0-None Visual Disturbances: 0-None Headache: 0-None Present CIWA-Ar Total Score: 12 BHS Progress Note (SOAP) Subjective: sweats right ear stuffy mild shakes interrupted sleep Objective: 03/26/18 14:04 Vital Signs Temperature 98.5 F 03/26/18 10:00 Pulse Rate 80 03/26/18 10:00 Respiratory Rate 20 03/26/18 10:00 Blood Pressure 143/72 03/26/18 10:00 O2 Sat by Pulse Oximetry (%) Laboratory Tests 03/24/18 03/25/18 03/25/18 23:00 07:00 07:00 WBC 6.3 RBC 4.72 Hgb 13.8 Hct 42.2 MCV 89.4 MCH 29.3 MCHC 32.7 RDW 13.0 Plt Count 282 D MPV 6.8 L Sodium 137 Potassium 4.3 Chloride 103 Carbon Dioxide 30 Anion Gap 5 L BUN 11 Creatinine 0.9 Creat Clearance w eGFR > 60 Random Glucose 159 H Calcium 9.2 Total Bilirubin 0.5 AST 26 ALT 33 Alkaline Phosphatase 61 Total Protein 7.4 Albumin 3.9 Urine Color Straw Urine Appearance Clear Urine pH 6.0 Ur Specific [place] 1.003 L Urine Protein Negative Urine Glucose (UA) Negative Urine Ketones Negative Urine Blood 1+ H Urine Nitrite Negative Urine Bilirubin Negative Urine Urobilinogen Negative Ur Leukocyte Esterase Negative Urine WBC (Auto) 1 Urine RBC (Auto) None [place] RPR Titer 03/25/18 03/25/18 07:00 09:00 WBC RBC Hgb Hct MCV MCH MCHC RDW Plt Count MPV Sodium Potassium Chloride Carbon Dioxide Anion Gap BUN Creatinine Creat Clearance w eGFR Random Glucose Calcium Total Bilirubin AST ALT Alkaline Phosphatase Total Protein Albumin Urine Color Urine Appearance Urine pH Ur Specific [place] Urine Protein Urine Glucose (UA) Urine Ketones Urine Blood Urine Nitrite Urine Bilirubin Urine Urobilinogen Ur Leukocyte Esterase Urine WBC (Auto) Urine RBC (Auto) [place] 0 L RPR Titer Nonreactive aaox3 ambulating no acute distress left ear assessed wax noted Assessment: 03/26/18 14:05 withdrawal sx Plan: continue detox increase fluids debrox ordered.
[2018-03-26] MEDS: chlordiazePOXIDE 5 MG CAPSULE PO SCH (22:41)
[2018-03-26] MEDS: THIAMINE HCL 100 MG TABLET (FP) PO SCH (22:42)
[2018-03-26] MEDS: LITHIUM CARBONATE 300 MG CAPSULE (FP) PO SCH (22:42)
[2018-03-26] MEDS: CARBAMIDE PEROXIDE 6.5% OTIC 15 ML BOTTLE AS SCH (22:43)
[2018-03-26] MEDS: MELATONIN 5 MG TABLETS PO PRN (22:43)
[2018-03-27] MEDS: chlordiazePOXIDE 5 MG CAPSULE PO SCH ×3 (06:31→17:25)
[2018-03-27] MEDS: IBUPROFEN 400 MG TABLET (FP) PO PRN (06:33)
[2018-03-27] MEDS: CARBAMIDE PEROXIDE 6.5% OTIC 15 ML BOTTLE AS SCH ×2 (10:52→22:24)
[2018-03-27] MEDS: PRENATAL VITAMINS W/ FOLIC ACID TABLET (FP) PO SCH (10:52)
[2018-03-27] MEDS: NICOTINE 21 MG/24 HOURS TOPICAL PATCH TD SCH (10:52)
[2018-03-27] MEDS: chlordiazePOXIDE HCL 25 MG CAPSULE PO PRN ×2 (12:26→19:42)
--- NOTE | 2018-03-27 15:48 | PN ---
[facility] Progress Note Note: Vital Signs Temperature 97.3 F L 03/27/18 15:14 Pulse Rate 90 03/27/18 15:14 Respiratory Rate 18 03/27/18 15:14 Blood Pressure 137/70 03/27/18 15:14 O2 Sat by Pulse Oximetry (%) Laboratory Last Values WBC 6.3 K/mm3 (4.0-10.0) 03/25/18 07:00 RBC 4.72 M/mm3 (4.00-5.60) 03/25/18 07:00 Hgb 13.8 GM/dL (11.7-16.9) 03/25/18 07:00 Hct 42.2 % (35.4-49) 03/25/18 07:00 MCV 89.4 fl (80-96) 03/25/18 07:00 MCH 29.3 pg (25.7-33.7) 03/25/18 07:00 MCHC 32.7 g/dl (32.0-35.9) 03/25/18 07:00 RDW 13.0 % (11.9-15.9) 03/25/18 07:00 Plt Count 282 K/MM3 (134-434) D 03/25/18 07:00 MPV 6.8 fl (7.5-11.1) L 03/25/18 07:00 Sodium 137 mmol/L (136-145) 03/25/18 07:00 Potassium 4.3 mmol/L (3.5-5.1) 03/25/18 07:00 Chloride 103 mmol/L (98-107) 03/25/18 07:00 Carbon Dioxide 30 mmol/L (21-32) 03/25/18 07:00 Anion Gap 5 MMOL/L (8-16) L 03/25/18 07:00 BUN 11 mg/dL (7-18) 03/25/18 07:00 Creatinine 0.9 mg/dL (0.55-1.3) 03/25/18 07:00 Creat Clearance w eGFR > 60 (>60) 03/25/18 07:00 Random Glucose 159 mg/dL (74-106) H 03/25/18 07:00 Calcium 9.2 mg/dL (8.5-10.1) 03/25/18 07:00 Total Bilirubin 0.5 mg/dL (0.2-1) 03/25/18 07:00 AST 26 U/L (15-37) 03/25/18 07:00 ALT 33 U/L (13-61) 03/25/18 07:00 Alkaline Phosphatase 61 U/L (45-117) 03/25/18 07:00 Total Protein 7.4 g/dl (6.4-8.2) 03/25/18 07:00 Albumin 3.9 g/dl (3.4-5.0) 03/25/18 07:00 Urine Color Straw 03/24/18 23:00 Urine Appearance Clear 03/24/18 23:00 Urine pH 6.0 (5.0-8.0) 03/24/18 23:00 Ur Specific [place] 1.003 (1.010-1.035) L 03/24/18 23:00 Urine Protein Negative (NEGATIVE) 03/24/18 23:00 Urine Glucose (UA) Negative (NEGATIVE) 03/24/18 23:00 Urine Ketones Negative (NEGATIVE) 03/24/18 23:00 Urine Blood 1+ (NEGATIVE) H 03/24/18 23:00 Urine Nitrite Negative (NEGATIVE) 03/24/18 23:00 Urine Bilirubin Negative (<2.0 mg/dL) 03/24/18 23:00 Urine Urobilinogen Negative mg/dL (0.2-1.0) 03/24/18 23:00 Ur Leukocyte Esterase Negative (NEGATIVE) 03/24/18 23:00 Urine WBC (Auto) 1 /hpf (3-5) 03/24/18 23:00 Urine RBC (Auto) None /hpf (0-3) 03/24/18 23:00 [place] 0 MEQ/L (0.6-1.2) L 03/25/18 09:00 RPR Titer Nonreactive (NONREACTIVE) 03/25/18 07:00 tire,fatigue, back pain, shakes AOX3 no distress no adventitious breath sounds full ROM ambulating in the unit independently withdrawal sx increase fluids continue detox continue to monitor
[2018-03-27] MEDS: chlordiazePOXIDE HCL 10 MG CAPSULE PO SCH (22:22)
[2018-03-27] MEDS: LITHIUM CARBONATE 300 MG CAPSULE (FP) PO SCH (22:22)
[2018-03-27] MEDS: THIAMINE HCL 100 MG TABLET (FP) PO SCH (22:22)
[2018-03-27] MEDS: hydrOXYzine PAMOATE 50 MG CAPSULE (FP) PO PRN (22:24)
[2018-03-27] MEDS: MELATONIN 5 MG TABLETS PO PRN (22:26)
[2018-03-28] MEDS: chlordiazePOXIDE HCL 10 MG CAPSULE PO SCH ×3 (06:18→17:57)
[2018-03-28] MEDS: PRENATAL VITAMINS W/ FOLIC ACID TABLET (FP) PO SCH (10:39)
[2018-03-28] MEDS: CARBAMIDE PEROXIDE 6.5% OTIC 15 ML BOTTLE AS SCH ×2 (10:39→22:34)
[2018-03-28] MEDS: NICOTINE 21 MG/24 HOURS TOPICAL PATCH TD SCH (10:40)
--- NOTE | 2018-03-28 13:58 | PN ---
BHS Progress Note (SOAP) Subjective: feeling better no tremor less sweat no gi distress sleep better at night Objective: 03/28/18 13:57 Vital Signs Temperature 98.3 F 03/28/18 10:00 Pulse Rate 76 03/28/18 10:00 Respiratory Rate 16 03/28/18 10:00 Blood Pressure 133/65 03/28/18 10:00 O2 Sat by Pulse Oximetry (%) Laboratory Last Values WBC 6.3 K/mm3 (4.0-10.0) 03/25/18 07:00 RBC 4.72 M/mm3 (4.00-5.60) 03/25/18 07:00 Hgb 13.8 GM/dL (11.7-16.9) 03/25/18 07:00 Hct 42.2 % (35.4-49) 03/25/18 07:00 MCV 89.4 fl (80-96) 03/25/18 07:00 MCH 29.3 pg (25.7-33.7) 03/25/18 07:00 MCHC 32.7 g/dl (32.0-35.9) 03/25/18 07:00 RDW 13.0 % (11.9-15.9) 03/25/18 07:00 Plt Count 282 K/MM3 (134-434) D 03/25/18 07:00 MPV 6.8 fl (7.5-11.1) L 03/25/18 07:00 Sodium 137 mmol/L (136-145) 03/25/18 07:00 Potassium 4.3 mmol/L (3.5-5.1) 03/25/18 07:00 Chloride 103 mmol/L (98-107) 03/25/18 07:00 Carbon Dioxide 30 mmol/L (21-32) 03/25/18 07:00 Anion Gap 5 MMOL/L (8-16) L 03/25/18 07:00 BUN 11 mg/dL (7-18) 03/25/18 07:00 Creatinine 0.9 mg/dL (0.55-1.3) 03/25/18 07:00 Creat Clearance w eGFR > 60 (>60) 03/25/18 07:00 Random Glucose 159 mg/dL (74-106) H 03/25/18 07:00 Calcium 9.2 mg/dL (8.5-10.1) 03/25/18 07:00 Total Bilirubin 0.5 mg/dL (0.2-1) 03/25/18 07:00 AST 26 U/L (15-37) 03/25/18 07:00 ALT 33 U/L (13-61) 03/25/18 07:00 Alkaline Phosphatase 61 U/L (45-117) 03/25/18 07:00 Total Protein 7.4 g/dl (6.4-8.2) 03/25/18 07:00 Albumin 3.9 g/dl (3.4-5.0) 03/25/18 07:00 Urine Color Straw 03/24/18 23:00 Urine Appearance Clear 03/24/18 23:00 Urine pH 6.0 (5.0-8.0) 03/24/18 23:00 Ur Specific [place] 1.003 (1.010-1.035) L 03/24/18 23:00 Urine Protein Negative (NEGATIVE) 03/24/18 23:00 Urine Glucose (UA) Negative (NEGATIVE) 03/24/18 23:00 Urine Ketones Negative (NEGATIVE) 03/24/18 23:00 Urine Blood 1+ (NEGATIVE) H 03/24/18 23:00 Urine Nitrite Negative (NEGATIVE) 03/24/18 23:00 Urine Bilirubin Negative (<2.0 mg/dL) 03/24/18 23:00 Urine Urobilinogen Negative mg/dL (0.2-1.0) 03/24/18 23:00 Ur Leukocyte Esterase Negative (NEGATIVE) 03/24/18 23:00 Urine WBC (Auto) 1 /hpf (3-5) 03/24/18 23:00 Urine RBC (Auto) None /hpf (0-3) 03/24/18 23:00 [place] 0 MEQ/L (0.6-1.2) L 03/25/18 09:00 RPR Titer Nonreactive (NONREACTIVE) 03/25/18 07:00 lab noted Assessment: 03/28/18 13:57 mild withdrawal sx Plan: continue detox
[2018-03-28] MEDS: hydrOXYzine PAMOATE 50 MG CAPSULE (FP) PO PRN ×2 (15:49→22:35)
[2018-03-28] MEDS: THIAMINE HCL 100 MG TABLET (FP) PO SCH (22:33)
[2018-03-28] MEDS: MELATONIN 5 MG TABLETS PO PRN (22:34)
[2018-03-28] MEDS: LITHIUM CARBONATE 300 MG CAPSULE (FP) PO SCH (22:34)
--- NOTE | 2018-03-29 08:56 | DS ---
[facility] Detox Discharge Summary Admission Date: 03/24/18 Discharge Date: 03/29/18 - History Present History: Alcohol Dependence, Cocaine Dependence - Physical Exam Results Vital Signs: Vital Signs Temperature 96.4 F L 03/29/18 06:00 Pulse Rate 80 03/29/18 06:00 Respiratory Rate 18 03/29/18 06:00 Blood Pressure 117/74 03/29/18 06:00 O2 Sat by Pulse Oximetry (%) - Treatment Hospital Course: Detox Protocol Followed, Detoxed Safely, Responded well, Discharged Condition Good, Rehab Referral Accepted - Medication Discharge Medications: Ambulatory Orders Gabapentin [Neurontin] 300 mg PO HS 06/13/14 Ibuprofen [Motrin -] 600 mg PO DAILY PRN 02/15/16 Omeprazole [Prilosec] 20 mg PO DAILY PRN 02/15/16 Tizanidine HCl [Zanaflex] 2 mg PO HS 02/15/16 Hydrocortisone 0.5% Ointment [Hytone 0.5% Ointment -] 1 applic TP BID #1 tube Mirtazapine [Remeron -] 15 mg PO HS #30 tablet 12/05/16 Pantoprazole Sodium [Protonix -] 40 mg PO DAILY #30 tab 12/05/16 hydrOXYzine PAMOATE [Vistaril -] 50 mg PO Q4H PRN #90 tab 12/05/16 Gabapentin [Neurontin -] 400 mg PO TID 03/24/18 [place] Carbonate [Eskalith -] 600 mg PO HS #30 capsule 03/25/18 - Diagnosis (1) Substance induced mood disorder Current Visit: Yes Status: Acute (2) Alcohol dependence with uncomplicated withdrawal Current Visit: Yes Status: Chronic (3) Cocaine dependence Current Visit: Yes Status: Chronic Qualifiers: Substance use status: uncomplicated Qualified Code(s): F14.20 - Cocaine dependence, uncomplicated (4) DM Diabetes mellitus type 2 Current Visit: Yes Status: Chronic (5) Lumbago Current Visit: Yes Status: Chronic Qualifiers: Chronicity: chronic Back pain laterality: bilateral Sciatica presence: with sciatica Sciatica laterality: bilateral sciatica Qualified Code(s): M54.42 - Lumbago with sciatica, left side (6) Nicotine dependence Current Visit: Yes Status: Chronic Qualifiers: Nicotine product type: cigarettes Substance use status: uncomplicated Qualified Code(s): F17.210 - Nicotine dependence, cigarettes, uncomplicated (7) Sciatica Current Visit: Yes Status: Chronic Qualifiers: Laterality: unspecified laterality Qualified Code(s): M54.30 - Sciatica, unspecified side (8) Cannabis dependence Current Visit: No Status: Acute (9) Neuropathy Current Visit: No Status: Chronic (10) hypercholesterolemia Current Visit: No Status: Chronic (11) low back pain herniated disc Current Visit: No Status: Chronic (12) Bipolar disorder Current Visit: No Status: Suspected (13) bipolar dosorder with depression Current Visit: No Status: Suspected - AMA Did Patient Leave Against Medical Advice: No (going home then outpatient)
[2018-03-29 09:19] VITALS: BP 111/69; PULSE 89; TEMP 98.8
[2018-03-29] MEDS: PRENATAL VITAMINS W/ FOLIC ACID TABLET (FP) PO SCH (09:59)
[2018-03-29] MEDS: NICOTINE 21 MG/24 HOURS TOPICAL PATCH TD SCH (09:59)
[2018-03-29] MEDS: IBUPROFEN 400 MG TABLET (FP) PO PRN (09:59)
[2018-03-29] MEDS: CARBAMIDE PEROXIDE 6.5% OTIC 15 ML BOTTLE AS SCH (09:59)
[2018-03-29] MEDS: hydrOXYzine PAMOATE 50 MG CAPSULE (FP) PO PRN (09:59)
== END 2018-03-29 10:10 | disposition home or self-care (01) | DRG 897 ==
LOC: YASAS 18:18 → Y3N 20:25 → Y6N 20:36
PROC: HZ2ZZZZ Detoxification Services for Substance Abuse Treatment (ICD-10-PCS; principal; 2018-03-24)
DX: F10.230 Alcohol dependence with withdrawal, uncomplicated (principal); F14.20 Cocaine dependence, uncomplicated; F12.20 Cannabis dependence, uncomplicated; F17.210 Nicotine dependence, cigarettes, uncomplicated; F19.24 Other psychoactive substance dependence with psychoactive substance-induced mood disorder; F31.9 Bipolar disorder, unspecified; E11.9 Type 2 diabetes mellitus without complications; E78.00 Pure hypercholesterolemia, unspecified; G62.9 Polyneuropathy, unspecified; M54.42 Lumbago with sciatica, left side; Z87.438 Personal history of other diseases of male genital organs
CPT/HCPCS: 36415; 80053; 80178; 81003; 81015; 85027; 86593; 93005; 93010

== ENCOUNTER 2018-04-20 08:21 | Inpatient (IN) | payer OTHER ==
[2018-04-20 08:58] VITALS: BMI 25.3
--- NOTE | 2018-04-20 09:44 | HP ---
CIWA Score - CIWA Score Nausea/Vomitin Muscle Tremors: 2 Anxiety: 2 Agitation: 2 Paroxysmal Sweats: 1-Minimal Palms Moist Orientation: 0-Oriented Tacttile Disturbances: 1-Very Mild Itch/Numbness Auditory Disturbances: 1-Very Mild Visual Disturbances: 0-None Headache: 2-Mild CIWA-Ar Total Score: 13 CIWA Score Nausea/Vomitin Muscle Tremors: 2 Anxiety: 2 Agitation: 2 Paroxysmal Sweats: 1-Minimal Palms Moist Orientation: 0-Oriented Tacttile Disturbances: 1-Very Mild Itch/Numbness Auditory Disturbances: 1-Very Mild Visual Disturbances: 0-None Headache: 2-Mild CIWA-Ar Total Score: 13 - Admission Criteria Patient presents the following: CIWA greater than 12 Admission Criteria Met: Admission criteria met Admission ROS [facility] - HPI Chief Complaint: i need help to stop drinking alcohol and cocaine,mandated by court Allergies/Adverse Reactions: Allergies Allergy/AdvReac Type Severity Reaction Status Date / Time No Known Allergies Allergy Verified 04/20/18 09:23 History of Present Illness: this 57 years old male with alcohol and cocaine dependence,seeking detox, withdrawal symptom, extensive history of alcohol intake since the age of 78 years old with multiple admissions, mandated by court to come in for detox and rehab nicotine dependence low back pain,sciatica,neuropathy, bipolar disorder,depression,ocd weight loss longest period of sobriety 3 years Exam Limitations: No Limitations - Ebola screening Have you traveled outside of the country in the last 21 days: No Have you had contact with anyone from an Ebola affected area: No Have you been sick,other than usual withdrawal symptoms: No Do you have a fever: No - Review of Systems Constitutional: Loss of Appetite, Malaise, Night Sweats, Changes in sleep, Weakness, Unintentional Wgt. Loss EENT: reports: Nose Congestion Respiratory: reports: No Symptoms reported Cardiac: reports: Palpitations GI: reports: Nausea, Poor Appetite, Abdominal cramping : reports: No Symptoms Reported Musculoskeletal: reports: Back Pain, Muscle Pain Integumentary: reports: Dryness Neuro: reports: Headache, Tremors Endocrine: reports: No Symptoms Reported Hematology: reports: No Symptoms Reported Psychiatric: reports: No Sypmtoms Reported, Judgement Intact, Mood/Affect Appropiate, Orientated x3 (bipolar disorder,depression,insomnia,ocd) Patient History - Patient Medical History Hx Anemia: No Hx Asthma: No Hx Chronic Obstructive Pulmonary Disease (COPD): No Hx Cancer: No Hx Cardiac Disorders: No Hx Congestive Heart Failure: No Hx Hypertension: No Hx Hypercholesterolemia: Yes (NOT CURRENTLY ON MED ?) Hx Pacemaker: No HX Cerebrovascular Accident: No Hx Seizures: No Hx Dementia: No Hx Diabetes: No Hx Gastrointestinal Disorders: No Hx Liver Disease: No Hx Genitourinary Disorders: No Hx Sexually Transmitted Disorders: Yes (gonorrhea at 18 yrs of age,genital herpes) Hx Renal Disease (ESRD): No Hx Thyroid Disease: No Hx Human Immunodeficiency Virus (HIV): No Hx Hepatitis C: No Hx Depression: Yes Hx Suicide Attempt: No Hx Bipolar Disorder: Yes (AND OCD) Hx Schizophrenia: No Other Medical History: no sucidal,no homicidal,low back pain,neuropathy - Patient Surgical History Past Surgical History: Yes Hx Neurologic Surgery: No Hx Cataract Extraction: No Hx Cardiac Surgery: No Hx Lung Surgery: No Hx Breast Surgery: No Hx Breast Biopsy: No Hx Abdominal Surgery: No Hx Appendectomy: No Hx Cholecystectomy: No Hx Genitourinary Surgery: No Hx Section: No Hx Orthopedic Surgery: No Other Surgical History: left inguinal hernia repair in 2002 Anesthesia Reaction: No - PPD History Previous Implant?: Yes Documented Results: Negative w/proof Implanted On Prior [facility] Admission?: Yes Date: 03/27/18 Results: 0 mm - Smoking Cessation Smoking history: Current every day smoker Have you smoked in the past 12 months: Yes Aproximately how many cigarettes per day: 10 Cigars Per Day: 0 Hx Chewing Tobacco Use: No Initiated information on smoking cessation: Yes 'Breaking Loose' booklet given: 04/20/18 - Substance & Tx. History Hx Alcohol Use: Yes Hx Substance Use: Yes Substance Use Type: Alcohol, Cocaine Hx Substance Use Treatment: Yes ([facility] 03/24/18 to 03/29/18) - Substances Abused Crack Route: Smoking Frequency: Daily Amount used: $300-400 Age of first use: 23 Date of Last Use: 04/20/18 Alcohol-beer Route: Oral Frequency: Daily Amount used: 1 case Age of first use: 19 Date of Last Use: 04/20/18 Family Disease History - Family Disease History Family Disease History: Diabetes: Mother (), Respiratory: Father ( [facility] D[facility]-), Other: Grandparent (ALCOHOLISM-), Brother ( ALCOHOLISM) Admission Physical Exam [facility] - Vital Signs Vital Signs: Vital Signs - 24 hr 04/20/18 08:55 Temperature 98.4 F Pulse Rate 97 H Respiratory 19 Rate Blood Pressure 148/78 - Physical General Appearance: Yes: Moderate Distress, Tremorous, Irritable, Sweating, Anxious HEENTM: Yes: Normal ENT Inspection, ANA, Pharynx Normal Respiratory: Yes: Within Normal Limits, Lungs Clear, Normal Breath Sounds Neck: Yes: Within Normal Limits, No masses,lesions,Nodules, Supple Breast: Yes: Within Normal Limits Cardiology: Yes: Within Normal Limits, Regular Rate, S1, S2 Abdominal: Yes: Normal Bowel Sounds, Non Tender, Soft, Organomegaly, Surgical Scar Genitourinary: Yes: Within Normal Limits Back: Yes: Muscle Spasm Musculoskeletal: Yes: Back pain, Joint Stiffness, Muscle Pain Extremities: Yes: Tremors Neurological: Yes: Within Normal Limits, 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, Fully Oriented, Alert, Motor Strength 5/5 Integumentary: Yes: Dry Lymphatic: Yes: Within Normal Limits - Diagnostic (1) Alcohol dependence with uncomplicated withdrawal Current Visit: Yes Status: Chronic (2) Cocaine dependence Current Visit: Yes Status: Acute Qualifiers: Substance use status: uncomplicated Qualified Code(s): F14.20 - Cocaine dependence, uncomplicated (3) Neuropathy Current Visit: No Status: Chronic (4) Nicotine dependence Current Visit: Yes Status: Acute Qualifiers: Nicotine product type: cigarettes Substance use status: uncomplicated Qualified Code(s): F17.210 - Nicotine dependence, cigarettes, uncomplicated (5) hypercholesterolemia Current Visit: No Status: Chronic (6) low back pain herniated disc Current Visit: No Status: Chronic (7) bipolar dosorder with depression Current Visit: No Status: Suspected (8) OCD (obsessive compulsive disorder) Current Visit: Yes Status: Acute Cleared for Admission [facility] - Detox or Rehab [facility] Level of Care: Medically Managed Detox Regimen/Protocol: Librium S Breath Alcohol Content Breath Alcohol Content: 0 Urine Drug Screen - Results Drug Screen Negative: No Urine Drug Screen Results: FRANKLIN-Cocaine, BZO-Benzodiazepines
[2018-04-20] MEDS ORDERED: ACETAMINOPHEN 325 MG TABLET (FP) PO PRN (09:51)
[2018-04-20] MEDS ORDERED: guaiFENesin/D-METHORPHAN HB 10 ML UNIT-DOSE CUPS PO PRN (09:51)
[2018-04-20] MEDS ORDERED: LOPERAMIDE HCL 2 MG CAPSULE PO PRN (09:51)
[2018-04-20] MEDS ORDERED: IBUPROFEN 400 MG TABLET (FP) PO PRN ×2 (09:51→09:55)
[2018-04-20] MEDS ORDERED: P-EPHED 60MG/TRIPROLIDI 2.5MG TABLET PO PRN (09:51)
[2018-04-20] MEDS ORDERED: MENTHOL/PHENOL 1 EACH UD MM PRN (09:51)
[2018-04-20] MEDS ORDERED: MAG HYDROX/AL HYDROX/SIMETH 30 ML UNIT-DOSE CUP PO PRN (09:51)
[2018-04-20] MEDS ORDERED: MAGNESIUM HYDROX 2400MG/30ML ORAL SUSPENSION 30 ML CUP PO PRN (09:51)
[2018-04-20] MEDS ORDERED: MAGNESIUM CITRATE 300 ML BOTTLE PO PRN (09:51)
[2018-04-20] MEDS: chlordiazePOXIDE HCL 25 MG CAPSULE PO SCH ×3 (11:45→22:43)
[2018-04-20] MEDS: NICOTINE 21 MG/24 HOURS TOPICAL PATCH TD SCH (11:45)
[2018-04-20] MEDS: valACYclovir HCL 500 MG TABLET (FP) PO SCH (11:45)
[2018-04-20] MEDS: PRENATAL VITAMINS W/ FOLIC ACID TABLET (FP) PO SCH (11:45)
[2018-04-20] MEDS: GABAPENTIN 400 MG CAPSULE (FP) PO SCH ×2 (14:36→22:42)
[2018-04-20] MEDS: chlordiazePOXIDE HCL 25 MG CAPSULE PO PRN ×2 (14:37→20:31)
[2018-04-20] MEDS: CYCLOBENZAPRINE HCL 10 MG TABLET (FP) PO PRN (17:08)
[2018-04-20] MEDS: IBUPROFEN 600 MG TABLET (FP) PO PRN (17:11)
--- NOTE | 2018-04-20 17:20 | CONSULT ---
[facility] Psychiatric Consult - Data Date of interview: 04/20/18 Admission source: [facility] Identifying data: This is one of multiple admissions to [facility] for this 57 y/ o male seeking detoxification treatment, on , for alcohol and cocaine dependence. Court-mandated. Patient is , no children, domiciled, unemployed and supported on SSD benefits. Substance Abuse History: Confirmed by the patient in this interview. Details in current [facility] report : Smoking history: Current every day smoker. Have you smoked in the past 12 months: Yes. Aproximately how many cigarettes per day: 10. Cigars Per Day: 0. Hx Chewing Tobacco Use: No. Initiated information on smoking cessation: Yes. 'Breaking Loose' booklet given: 04/20/18. - Substance & Tx. History. Hx Alcohol Use: Yes. Hx Substance Use: Yes. Substance Use Type : Alcohol, Cocaine. Hx Substance Use Treatment: Yes ([facility] 03/24/18 to 03/29/18) Medical History: Neuropathy, fibromyalgia, arthritis, chronic lumbar pain, sciatica, hypercholesterolemia, antecedent of left inguinal herniorraphy and a history of treatment for gonorrhea (age 18) Psychiatric History: Patient is a disorganized, unreliable and indifferent historian. Dose admits to a history of multiple psychiatric hospitalizations ( remembers only [facility]). Reportedly diagnosed with Bipolar Disorder. Mr Cheema recalls prior treatment with lithium (not taken for several months). No affiliation with psychiatric OPD care providers. It appears that the patient gets exposed to psychotropic medications only when admitted to detoxification/rehabilitation units. Patient denies history of suicide attempts. Physical/Sexual Abuse/Trauma History: Not discussed in this session. Patient declines to report on this domain. Additional Comment: Urine Drug Screen Results: FRANKLIN-Cocaine, BZO- Benzodiazepines. Noted. Mental Status Exam - Mental Status Exam Alert and Oriented to: Time, Place, Person Cognitive Function: Good Patient Appearance: Unkempt, Disheveled Mood: Nervous, Withdrawn, Anxious Affect: Mood Congruent, Constricted Patient Behavior: Fatigued, Cooperative Speech Pattern: Clear Voice Loudness: Normal Thought Process: Goal Oriented Thought Disorder: Not Present Hallucinations: Denies Suicidal Ideation: Denies Homicidal Ideation: Denies Insight/Judgement: Poor Sleep: Poorly, Difficulty falling asleep Appetite: Good Muscle strength/Tone: Normal Gait/Station: Normal Psychiatric Findings - Problem List ([place] 1, 2,3) (1) Alcohol dependence with uncomplicated withdrawal Current Visit: Yes Status: Chronic (2) Cocaine dependence Current Visit: Yes Status: Acute Qualifiers: Substance use status: uncomplicated Qualified Code(s): F14.20 - Cocaine dependence, uncomplicated (3) Nicotine dependence Current Visit: Yes Status: Acute Qualifiers: Nicotine product type: cigarettes Substance use status: uncomplicated Qualified Code(s): F17.210 - Nicotine dependence, cigarettes, uncomplicated (4) Substance induced mood disorder Current Visit: Yes Status: Acute (5) Non-compliant patient Current Visit: Yes Status: Acute - Initial Treatment Plan Initial Treatment Plan: Psychoeducation. Sleep hygiene. Detoxification in progress. AA meetings recommended. Observation.
[2018-04-20] MEDS: THIAMINE HCL 100 MG TABLET (FP) PO SCH (22:42)
[2018-04-20] MEDS: MELATONIN 5 MG TABLETS PO PRN (22:44)
[2018-04-21 01:37] LABS: URINE APPEARANCE CLEAR; URINE BILIRUBIN NEGATIVE (<2.0 mg/dL); URINE COLOR YELLOW; URINE GLUCOSE (UA) NEGATIVE (NEGATIVE); URINE KETONE 1+ (NEGATIVE); URINE LEUK ESTERASE NEGATIVE (NEGATIVE); URINE NITRITE NEGATIVE (NEGATIVE); URINE PROTEIN 1+ (NEGATIVE)
[2018-04-21 01:44] LABS: URINE MUCUS RARE
[2018-04-21] MEDS: IBUPROFEN 600 MG TABLET (FP) PO PRN ×2 (06:36→17:29)
[2018-04-21] MEDS: GABAPENTIN 400 MG CAPSULE (FP) PO SCH ×3 (06:36→22:18)
[2018-04-21] MEDS: chlordiazePOXIDE HCL 25 MG CAPSULE PO SCH ×4 (06:37→22:18)
--- NOTE | 2018-04-21 09:51 | EKG ---
Test Reason : Blood Pressure : / mmHG Vent. Rate : 099 BPM Atrial Rate : 099 BPM P-R Int : 148 ms QRS Dur : 076 ms QT Int : 366 ms P-R-T Axes : 065 004 041 degrees QTc Int : 469 ms NORMAL SINUS RHYTHM NORMAL ECG WHEN COMPARED WITH ECG OF 24-MAR-2018 21:15, NO SIGNIFICANT CHANGE WAS FOUND Confirmed by LISHA TURNER MD ([id number]) on 04/21/2018 9:50:59 AM Referred By: Confirmed By:LISHA TURNER MD
[2018-04-21 10:05] LABS: HEMATOCRIT 44.2 % (35.4-49); HEMOGLOBIN 14.6 GM/dL (11.7-16.9); MCH 29.7 pg (25.7-33.7); MCHC 33.1 g/dl (32.0-35.9); MEAN CELL VOLUME 89.7 fl (80-96); MEAN PLT VOLUME 7.2 fl (7.5-11.1); PLATELET COUNT 239 K/MM3 (134-434); RBC 4.93 M/mm3 (4.00-5.60); WHITE BLOOD COUNT 9.6 K/mm3 (4.0-10.0)
[2018-04-21] MEDS: PRENATAL VITAMINS W/ FOLIC ACID TABLET (FP) PO SCH (10:16)
[2018-04-21] MEDS: NICOTINE 21 MG/24 HOURS TOPICAL PATCH TD SCH (10:16)
[2018-04-21] MEDS: valACYclovir HCL 500 MG TABLET (FP) PO SCH (10:17)
[2018-04-21 10:33] LABS: ALBUMIN 4.4 g/dl (3.4-5.0); ALK PHOS 81 U/L (45-117); ANION GAP 13 MMOL/L (8-16); BILIRUBIN,TOTAL 1.8 mg/dL (0.2-1); BLOOD UREA NITROGEN 13 mg/dL (7-18); CALCIUM 8.3 mg/dL (8.5-10.1); CHLORIDE 100 mmol/L (98-107); CO2 25 mmol/L (21-32); CREATININE 0.7 mg/dL (0.55-1.3); GLUCOSE,RANDOM 102 mg/dL (74-106); POTASSIUM 3.7 mmol/L (3.5-5.1); SGOT/AST 45 U/L (15-37); SGPT/ALT 33 U/L (13-61); SODIUM 138 mmol/L (136-145); TOT PROT 8.1 g/dl (6.4-8.2)
[2018-04-21] MEDS: chlordiazePOXIDE HCL 25 MG CAPSULE PO PRN ×2 (13:33→19:28)
--- NOTE | 2018-04-21 14:54 | PN ---
S CIWA - CIWA Score Nausea/Vomitin Muscle Tremors: 3 Anxiety: 3 Agitation: 3 Paroxysmal Sweats: 3 Orientation: 0-Oriented Tacttile Disturbances: 1-Very Mild Itch/Numbness Auditory Disturbances: 0-None Visual Disturbances: 0-None Headache: 1-Very Mild CIWA-Ar Total Score: 16 S Progress Note (SOAP) Subjective: Sweating, yawning, back pain, interrupted sleep Objective: 04/21/18 14:51 Last Vital Signs Temp Pulse Resp BP Pulse Ox 98.6 F 80 18 104/63 04/21/18 13:49 04/21/18 13:49 04/21/18 13:49 04/21/18 13:49 Laboratory Tests 04/20/18 04/20/18 04/21/18 09:45 23:34 06:00 WBC 9.6 RBC 4.93 Hgb 14.6 Hct 44.2 MCV 89.7 MCH 29.7 MCHC 33.1 RDW 14.0 Plt Count 239 MPV 7.2 L Sodium Potassium Chloride Carbon Dioxide Anion Gap BUN Creatinine Creat Clearance w eGFR Random Glucose Calcium Total Bilirubin AST ALT Alkaline Phosphatase Total Protein Albumin Urine Color Yellow Urine Appearance Clear Urine pH 5.0 Ur Specific [place] 1.023 Urine Protein 1+ H Urine Glucose (UA) Negative Urine Ketones 1+ H Urine Blood 2+ H Urine Nitrite Negative Urine Bilirubin Negative Urine Urobilinogen 2.0 Ur Leukocyte Esterase Negative Urine WBC (Auto) 12 Urine RBC (Auto) 21 Urine Mucus Rare RPR Titer HIV 1&2 Antibody Screen Negative HIV P24 Antigen Negative 04/21/18 04/21/18 06:00 06:00 WBC RBC Hgb Hct MCV MCH MCHC RDW Plt Count MPV Sodium 138 Potassium 3.7 Chloride 100 Carbon Dioxide 25 Anion Gap 13 BUN 13 Creatinine 0.7 Creat Clearance w eGFR > 60 Random Glucose 102 Calcium 8.3 L Total Bilirubin 1.8 H AST 45 H ALT 33 Alkaline Phosphatase 81 Total Protein 8.1 Albumin 4.4 Urine Color Urine Appearance Urine pH Ur Specific [place] Urine Protein Urine Glucose (UA) Urine Ketones Urine Blood Urine Nitrite Urine Bilirubin Urine Urobilinogen Ur Leukocyte Esterase Urine WBC (Auto) Urine RBC (Auto) Urine Mucus RPR Titer Nonreactive HIV 1&2 Antibody Screen HIV P24 Antigen Labs reviewed: total bilirubin 1.8, UA abnormal Assessment: 04/21/18 14:53 Withdrawal symptoms Noted with elevated total bilirubin and abnormal UA Plan: Continue detox Elevated total bilirubin: repeat total bilirubin Abnormal UA: encouraged PO water intake, repeat UA
[2018-04-21] MEDS: CYCLOBENZAPRINE HCL 10 MG TABLET (FP) PO PRN (22:18)
[2018-04-21] MEDS: THIAMINE HCL 100 MG TABLET (FP) PO SCH (22:18)
[2018-04-21] MEDS: MELATONIN 5 MG TABLETS PO PRN (22:19)
[2018-04-22] MEDS: IBUPROFEN 600 MG TABLET (FP) PO PRN ×3 (06:36→22:12)
[2018-04-22] MEDS: GABAPENTIN 400 MG CAPSULE (FP) PO SCH ×3 (06:36→22:12)
[2018-04-22] MEDS: chlordiazePOXIDE HCL 25 MG CAPSULE PO SCH (06:36)
[2018-04-22] MEDS: chlordiazePOXIDE HCL 25 MG CAPSULE PO PRN ×3 (08:52→20:15)
[2018-04-22] MEDS: NICOTINE 21 MG/24 HOURS TOPICAL PATCH TD SCH (10:23)
[2018-04-22] MEDS: PRENATAL VITAMINS W/ FOLIC ACID TABLET (FP) PO SCH (10:23)
[2018-04-22] MEDS: chlordiazePOXIDE 5 MG CAPSULE PO SCH ×3 (10:24→22:12)
[2018-04-22] MEDS: valACYclovir HCL 500 MG TABLET (FP) PO SCH (10:24)
[2018-04-22] MEDS: hydrOXYzine PAMOATE 50 MG CAPSULE (FP) PO PRN (12:31)
[2018-04-22 14:44] LABS: URINE APPEARANCE CLEAR; URINE BILIRUBIN NEGATIVE (<2.0 mg/dL); URINE COLOR LTYELLOW; URINE GLUCOSE (UA) NEGATIVE (NEGATIVE); URINE KETONE NEGATIVE (NEGATIVE); URINE LEUK ESTERASE NEGATIVE (NEGATIVE); URINE NITRITE NEGATIVE (NEGATIVE); URINE PROTEIN NEGATIVE (NEGATIVE); URINE UROBILINOGEN NEGATIVE mg/dL (0.2-1.0)
--- NOTE | 2018-04-22 15:25 | PN ---
S CIWA - CIWA Score Nausea/Vomitin Muscle Tremors: 3 Anxiety: 3 Agitation: 2 Paroxysmal Sweats: 3 Orientation: 0-Oriented Tacttile Disturbances: 1-Very Mild Itch/Numbness Auditory Disturbances: 0-None Visual Disturbances: 0-None Headache: 0-None Present CIWA-Ar Total Score: 14 S Progress Note (SOAP) Subjective: Anxious, sweating, interrupted sleep. Patient reports having borderline diabetes and requesting glucerna supplement. Objective: 04/22/18 15:23 Last Vital Signs Temp Pulse Resp BP Pulse Ox 96.2 F L 108 H 20 108/72 04/22/18 13:45 04/22/18 13:45 04/22/18 13:45 04/22/18 13:45 Laboratory Tests 04/20/18 04/20/18 04/21/18 09:45 23:34 06:00 WBC 9.6 RBC 4.93 Hgb 14.6 Hct 44.2 MCV 89.7 MCH 29.7 MCHC 33.1 RDW 14.0 Plt Count 239 MPV 7.2 L Sodium Potassium Chloride Carbon Dioxide Anion Gap BUN Creatinine Creat Clearance w eGFR Random Glucose Calcium Total Bilirubin AST ALT Alkaline Phosphatase Total Protein Albumin Urine Color Yellow Urine Appearance Clear Urine pH 5.0 Ur Specific [place] 1.023 Urine Protein 1+ H Urine Glucose (UA) Negative Urine Ketones 1+ H Urine Blood 2+ H Urine Nitrite Negative Urine Bilirubin Negative Urine Urobilinogen 2.0 Ur Leukocyte Esterase Negative Urine WBC (Auto) 12 Urine RBC (Auto) 21 Urine Mucus Rare RPR Titer HIV 1&2 Antibody Screen Negative HIV P24 Antigen Negative 04/21/18 04/21/18 04/22/18 06:00 06:00 07:00 WBC RBC Hgb Hct MCV MCH MCHC RDW Plt Count MPV Sodium 138 Potassium 3.7 Chloride 100 Carbon Dioxide 25 Anion Gap 13 BUN 13 Creatinine 0.7 Creat Clearance w eGFR > 60 Random Glucose 102 Calcium 8.3 L Total Bilirubin 1.8 H 0.3 AST 45 H ALT 33 Alkaline Phosphatase 81 Total Protein 8.1 Albumin 4.4 Urine Color Urine Appearance Urine pH Ur Specific [place] Urine Protein Urine Glucose (UA) Urine Ketones Urine Blood Urine Nitrite Urine Bilirubin Urine Urobilinogen Ur Leukocyte Esterase Urine WBC (Auto) Urine RBC (Auto) Urine Mucus RPR Titer Nonreactive HIV 1&2 Antibody Screen HIV P24 Antigen 04/22/18 10:35 WBC RBC Hgb Hct MCV MCH MCHC RDW Plt Count MPV Sodium Potassium Chloride Carbon Dioxide Anion Gap BUN Creatinine Creat Clearance w eGFR Random Glucose Calcium Total Bilirubin AST ALT Alkaline Phosphatase Total Protein Albumin Urine Color Ltyellow Urine Appearance Clear Urine pH 6.0 Ur Specific [place] 1.011 Urine Protein Negative Urine Glucose (UA) Negative Urine Ketones Negative Urine Blood Negative Urine Nitrite Negative Urine Bilirubin Negative Urine Urobilinogen Negative Ur Leukocyte Esterase Negative Urine WBC (Auto) Urine RBC (Auto) Urine Mucus RPR Titer HIV 1&2 Antibody Screen HIV P24 Antigen Labs reviewed Assessment: 04/22/18 15:24 Withdrawal sxs Plan: Continue detox Encouraged PO water intake
[2018-04-22] MEDS: CYCLOBENZAPRINE HCL 10 MG TABLET (FP) PO PRN (17:36)
[2018-04-22] MEDS: THIAMINE HCL 100 MG TABLET (FP) PO SCH (22:12)
[2018-04-22] MEDS: MELATONIN 5 MG TABLETS PO PRN (22:13)
[2018-04-23] MEDS: chlordiazePOXIDE 5 MG CAPSULE PO SCH (06:34)
[2018-04-23] MEDS: GABAPENTIN 400 MG CAPSULE (FP) PO SCH ×3 (06:34→22:29)
[2018-04-23] MEDS: PRENATAL VITAMINS W/ FOLIC ACID TABLET (FP) PO SCH (10:27)
[2018-04-23] MEDS: valACYclovir HCL 500 MG TABLET (FP) PO SCH (10:27)
[2018-04-23] MEDS: chlordiazePOXIDE HCL 10 MG CAPSULE PO SCH ×3 (10:29→22:29)
[2018-04-23] MEDS: IBUPROFEN 600 MG TABLET (FP) PO PRN ×2 (10:29→17:17)
[2018-04-23] MEDS: NICOTINE 21 MG/24 HOURS TOPICAL PATCH TD SCH (10:31)
[2018-04-23] MEDS: hydrOXYzine PAMOATE 50 MG CAPSULE (FP) PO PRN ×2 (13:14→22:29)
[2018-04-23] MEDS: CYCLOBENZAPRINE HCL 10 MG TABLET (FP) PO PRN (17:17)
--- NOTE | 2018-04-23 17:29 | PN ---
[facility] Progress Note (SOAP) Subjective: Sweating, feeling tired, diarrhea Objective: 04/23/18 17:28 Last Vital Signs Temp Pulse Resp BP Pulse Ox 96.5 F L 86 18 147/67 04/23/18 15:50 04/23/18 15:50 04/23/18 15:50 04/23/18 15:50 Laboratory Tests 04/20/18 04/20/18 04/21/18 09:45 23:34 06:00 WBC 9.6 RBC 4.93 Hgb 14.6 Hct 44.2 MCV 89.7 MCH 29.7 MCHC 33.1 RDW 14.0 Plt Count 239 MPV 7.2 L Sodium Potassium Chloride Carbon Dioxide Anion Gap BUN Creatinine Creat Clearance w eGFR Random Glucose Calcium Total Bilirubin AST ALT Alkaline Phosphatase Total Protein Albumin Urine Color Yellow Urine Appearance Clear Urine pH 5.0 Ur Specific [place] 1.023 Urine Protein 1+ H Urine Glucose (UA) Negative Urine Ketones 1+ H Urine Blood 2+ H Urine Nitrite Negative Urine Bilirubin Negative Urine Urobilinogen 2.0 Ur Leukocyte Esterase Negative Urine WBC (Auto) 12 Urine RBC (Auto) 21 Urine Mucus Rare RPR Titer HIV 1&2 Antibody Screen Negative HIV P24 Antigen Negative 04/21/18 04/21/18 04/22/18 06:00 06:00 07:00 WBC RBC Hgb Hct MCV MCH MCHC RDW Plt Count MPV Sodium 138 Potassium 3.7 Chloride 100 Carbon Dioxide 25 Anion Gap 13 BUN 13 Creatinine 0.7 Creat Clearance w eGFR > 60 Random Glucose 102 Calcium 8.3 L Total Bilirubin 1.8 H 0.3 AST 45 H ALT 33 Alkaline Phosphatase 81 Total Protein 8.1 Albumin 4.4 Urine Color Urine Appearance Urine pH Ur Specific [place] Urine Protein Urine Glucose (UA) Urine Ketones Urine Blood Urine Nitrite Urine Bilirubin Urine Urobilinogen Ur Leukocyte Esterase Urine WBC (Auto) Urine RBC (Auto) Urine Mucus RPR Titer Nonreactive HIV 1&2 Antibody Screen HIV P24 Antigen 04/22/18 10:35 WBC RBC Hgb Hct MCV MCH MCHC RDW Plt Count MPV Sodium Potassium Chloride Carbon Dioxide Anion Gap BUN Creatinine Creat Clearance w eGFR Random Glucose Calcium Total Bilirubin AST ALT Alkaline Phosphatase Total Protein Albumin Urine Color Ltyellow Urine Appearance Clear Urine pH 6.0 Ur Specific [place] 1.011 Urine Protein Negative Urine Glucose (UA) Negative Urine Ketones Negative Urine Blood Negative Urine Nitrite Negative Urine Bilirubin Negative Urine Urobilinogen Negative Ur Leukocyte Esterase Negative Urine WBC (Auto) Urine RBC (Auto) Urine Mucus RPR Titer HIV 1&2 Antibody Screen HIV P24 Antigen Labs reviewed Assessment: 04/23/18 17:29 Withdrawal sxs Plan: Continue detox Encouraged PO water intake
[2018-04-23] MEDS: THIAMINE HCL 100 MG TABLET (FP) PO SCH (22:29)
[2018-04-23] MEDS: MELATONIN 5 MG TABLETS PO PRN (22:31)
[2018-04-24] MEDS: IBUPROFEN 600 MG TABLET (FP) PO PRN (05:51)
[2018-04-24] MEDS: GABAPENTIN 400 MG CAPSULE (FP) PO SCH (05:51)
[2018-04-24] MEDS: chlordiazePOXIDE HCL 10 MG CAPSULE PO SCH (05:51)
[2018-04-24 06:22] VITALS: BP 109/64; PULSE 77; TEMP 96.5
--- NOTE | 2018-04-24 11:36 | DS ---
[facility] Detox Discharge Summary Admission Date: 04/20/18 Discharge Date: 04/24/18 - History Present History: Alcohol Dependence, Cocaine Dependence Additional Comments: DETOX COMPLETED. ALERT O X 3. NAD. PT REPORTS HE HAS PRIMARY CARE WITH DR. LEYVA AT [place], [place]. PT STATES HE WILL FOLLOW UP WITH MEDICAL MANAGEMENT UPON DISCHARGE. RX FOR VALTREX 500 MG PO DAILY #7 SENT TO PT'S PHARMACY FOR PICKUP AFTER D/C. Pertinent Past History: PLEASE SEE DX BELOW - Physical Exam Results Vital Signs: Vital Signs Temperature 96.5 F L 04/24/18 06:22 Pulse Rate 77 04/24/18 06:22 Respiratory Rate 18 04/24/18 06:22 Blood Pressure 109/64 04/24/18 06:22 O2 Sat by Pulse Oximetry (%) Pertinent Admission Physical Exam Findings: WITHDRAWAL SX Laboratory Tests 04/20/18 04/20/18 04/21/18 09:45 23:34 06:00 WBC 9.6 RBC 4.93 Hgb 14.6 Hct 44.2 MCV 89.7 MCH 29.7 MCHC 33.1 RDW 14.0 Plt Count 239 MPV 7.2 L Sodium Potassium Chloride Carbon Dioxide Anion Gap BUN Creatinine Creat Clearance w eGFR Random Glucose Calcium Total Bilirubin AST ALT Alkaline Phosphatase Total Protein Albumin Urine Color Yellow Urine Appearance Clear Urine pH 5.0 Ur Specific [place] 1.023 Urine Protein 1+ H Urine Glucose (UA) Negative Urine Ketones 1+ H Urine Blood 2+ H Urine Nitrite Negative Urine Bilirubin Negative Urine Urobilinogen 2.0 Ur Leukocyte Esterase Negative Urine WBC (Auto) 12 Urine RBC (Auto) 21 Urine Mucus Rare RPR Titer HIV 1&2 Antibody Screen Negative HIV P24 Antigen Negative 04/21/18 04/21/18 04/22/18 06:00 06:00 07:00 WBC RBC Hgb Hct MCV MCH MCHC RDW Plt Count MPV Sodium 138 Potassium 3.7 Chloride 100 Carbon Dioxide 25 Anion Gap 13 BUN 13 Creatinine 0.7 Creat Clearance w eGFR > 60 Random Glucose 102 Calcium 8.3 L Total Bilirubin 1.8 H 0.3 AST 45 H ALT 33 Alkaline Phosphatase 81 Total Protein 8.1 Albumin 4.4 Urine Color Urine Appearance Urine pH Ur Specific [place] Urine Protein Urine Glucose (UA) Urine Ketones Urine Blood Urine Nitrite Urine Bilirubin Urine Urobilinogen Ur Leukocyte Esterase Urine WBC (Auto) Urine RBC (Auto) Urine Mucus RPR Titer Nonreactive HIV 1&2 Antibody Screen HIV P24 Antigen 04/22/18 10:35 WBC RBC Hgb Hct MCV MCH MCHC RDW Plt Count MPV Sodium Potassium Chloride Carbon Dioxide Anion Gap BUN Creatinine Creat Clearance w eGFR Random Glucose Calcium Total Bilirubin AST ALT Alkaline Phosphatase Total Protein Albumin Urine Color Ltyellow Urine Appearance Clear Urine pH 6.0 Ur Specific [place] 1.011 Urine Protein Negative Urine Glucose (UA) Negative Urine Ketones Negative Urine Blood Negative Urine Nitrite Negative Urine Bilirubin Negative Urine Urobilinogen Negative Ur Leukocyte Esterase Negative Urine WBC (Auto) Urine RBC (Auto) Urine Mucus RPR Titer HIV 1&2 Antibody Screen HIV P24 Antigen - Treatment Hospital Course: Detox Protocol Followed, Detoxed Safely, Responded well, Discharged Condition Good - Medication Discharge Medications: Ambulatory Orders Ibuprofen [Motrin -] 600 mg PO TID PRN 02/15/16 Gabapentin [Neurontin -] 400 mg PO TID 03/24/18 Valacyclovir HCl [Valtrex -] 500 mg PO DAILY #7 tablet 04/24/18 - Diagnosis (1) Alcohol dependence with uncomplicated withdrawal Status: Acute (2) History of herpes genitalis Status: Chronic (3) Nicotine dependence Status: Chronic Qualifiers: Nicotine product type: cigarettes Substance use status: in withdrawal Qualified Code(s): F17.213 - Nicotine dependence, cigarettes, with withdrawal (4) low back pain herniated disc Status: Chronic (5) Cocaine dependence Status: Acute Qualifiers: Substance use status: uncomplicated Qualified Code(s): F14.20 - Cocaine dependence, uncomplicated (6) Neuropathy Status: Chronic - AMA Did Patient Leave Against Medical Advice: No
== END 2018-04-24 11:21 | disposition home or self-care (01) | DRG 897 ==
LOC: YASAS 08:21 → Y3N 09:54
PROC: HZ2ZZZZ Detoxification Services for Substance Abuse Treatment (ICD-10-PCS; principal; 2018-04-20)
DX: F10.230 Alcohol dependence with withdrawal, uncomplicated (principal); F14.20 Cocaine dependence, uncomplicated; R17 Unspecified jaundice; F17.213 Nicotine dependence, cigarettes, with withdrawal; F31.9 Bipolar disorder, unspecified; F19.24 Other psychoactive substance dependence with psychoactive substance-induced mood disorder; G62.9 Polyneuropathy, unspecified; E78.00 Pure hypercholesterolemia, unspecified; M12.9 Arthropathy, unspecified; M79.7 Fibromyalgia; R82.90 Unspecified abnormal findings in urine; M51.17 Intervertebral disc disorders with radiculopathy, lumbosacral region; Z86.19 Personal history of other infectious and parasitic diseases; Z91.19 Patient's noncompliance with other medical treatment and regimen
CPT/HCPCS: 36415; 80053; 81003; 81015; 82247; 85027; 86593; 87389; 93005; 93010

== ENCOUNTER 2018-07-11 21:01 | Inpatient (IN) | payer OTHER ==
[2018-07-11 21:30] VITALS: BMI 25.0
--- NOTE | 2018-07-11 21:39 | HP ---
CIWA Score Nausea/Vomitin-No Nausea/No Vomiting Muscle Tremors: 1-None Visible, but Bureau Anxiety: 6 Agitation: 6 Paroxysmal Sweats: 3 Orientation: 0-Oriented Tacttile Disturbances: 2-Mild Itch/Numbness/Burn Auditory Disturbances: 0-None Visual Disturbances: 0-None Headache: 0-None Present CIWA-Ar Total Score: 18 - Admission Criteria [facility]ASAS Guidelines: Admission for Medically Managed Detox: Requires at least one of the followin. CIWA greater than 12 2. Seizures within the past 24 hours 3. Delirium tremens within the past 24 hours 4. Hallucinations within the past 24 hours 5. Acute intervention needed for co occurring medical disorder 6. Acute intervention needed for co occurring psychiatric disorder 7. Severe withdrawal that cannot be handled at a lower level of care (continued vomiting, continued diarrhea, abnormal vital signs) requiring intravenous medication and/or fluids 8. Patient presents the following: CIWA greater than 12, Acute intervention needed for co-occurring med or psych disorder Admission Criteria Met: Admission criteria met Admission ROS [facility] - [facility] Chief Complaint: C/O WORSENING WITHDRAWAL SX'S. SEEKING DETOX TXMENT Allergies/Adverse Reactions: Allergies Allergy/AdvReac Type Severity Reaction Status Date / Time No Known Allergies Allergy Verified 04/20/18 09:23 History of Present Illness: 58Y.O. MALE WITH EXTENSIVE HX/O ALCOHOLISM HERE FOR DETOX. CLIENT IS KNOWN TO THIS PROGRAM. LAST ADMISSION 04/2018. HE IS SELF REFERRED. PRESENTS WITH C/O WORSENING WITHDRAWAL SX'S. CIWA 18. PMHX- "BORDERLINE DM", HTN, HSV, BIPOLAR. REPORTS LONGEST CLEAN TIME 2.5 YEARS 10 MONTHS OF THAT WAS IN A RESIDENTIAL PROGRAM. DENIES PAST/PRESENT HX/O SI/HI, GRIS, SEIZURE D/O. LIVES HOME W/ , UNEMPLOYED- DISABILITY, DENIES LEGALS. Exam Limitations: No Limitations - Ebola screening Have you traveled outside of the country in the last 21 days: No (N) Have you had contact with anyone from an Ebola affected area: No Have you been sick,other than usual withdrawal symptoms: No Do you have a fever: No - Review of Systems Constitutional: Chills, Loss of Appetite, Night Sweats, Changes in sleep EENT: reports: No Symptoms Reported Respiratory: reports: No Symptoms reported Cardiac: reports: No Symptoms Reported GI: reports: Poor Appetite, Poor Fluid Intake : reports: No Symptoms Reported Musculoskeletal: reports: No Symptoms Reported Integumentary: reports: Flushing, Sweating Neuro: reports: No Symptoms reported Endocrine: reports: Other (BORDELINE DM) Hematology: reports: No Symptoms Reported Psychiatric: reports: Orientated x3, Anxious, other (IRRITABLE) Other Systems: Reviewed and Negative Patient History - Patient Medical History Hx Anemia: No Hx Asthma: No Hx Chronic Obstructive Pulmonary Disease (COPD): No Hx Cancer: No Hx Cardiac Disorders: No Hx Congestive Heart Failure: No Hx Hypertension: Yes Hx Hypercholesterolemia: No Hx Pacemaker: No HX Cerebrovascular Accident: No Hx Seizures: No Hx Dementia: No Hx Diabetes: Yes (BORDERLINE) Hx Gastrointestinal Disorders: No Hx Liver Disease: No Hx Genitourinary Disorders: No Hx Sexually Transmitted Disorders: No Hx Renal Disease (ESRD): No Hx Thyroid Disease: No Hx Human Immunodeficiency Virus (HIV): No Hx Hepatitis C: No Hx Depression: Yes Hx Suicide Attempt: No Hx Bipolar Disorder: Yes (AND OCD) Hx Schizophrenia: Yes - Patient Surgical History Past Surgical History: Yes Hx Neurologic Surgery: No Hx Cataract Extraction: No Hx Cardiac Surgery: No Hx Lung Surgery: No Hx Breast Surgery: No Hx Breast Biopsy: No Hx Abdominal Surgery: No Hx Appendectomy: No Hx Cholecystectomy: No Hx Genitourinary Surgery: No Hx Section: No Hx Orthopedic Surgery: No Other Surgical History: left inguinal hernia repair in 2002 Anesthesia Reaction: No - PPD History Previous Implant?: Yes Documented Results: Negative w/proof Implanted On Prior [facility] Admission?: Yes Date: 03/27/18 Results: 0 mm PPD to be Administered?: No - Smoking Cessation Smoking history: Current every day smoker Have you smoked in the past 12 months: Yes Aproximately how many cigarettes per day: 10 Cigars Per Day: 0 Hx Chewing Tobacco Use: No Initiated information on smoking cessation: Yes 'Breaking Loose' booklet given: 07/11/18 - Substance & Tx. History Hx Alcohol Use: Yes Hx Substance Use: Yes Substance Use Type: Alcohol, Cocaine Hx Substance Use Treatment: Yes ([facility]) - Substances Abused Alcohol Route: Oral Frequency: Daily Amount used: 20 OZ BEER Age of first use: 10 Date of Last Use: 07/11/18 Cocaine Route: Smoking Frequency: 3-6 times per week Amount used: 1 GRAM Age of first use: 17 Date of Last Use: 07/09/18 Family Disease History - Family Disease History Family Disease History: Diabetes: Mother (), Respiratory: Father ( PARKINSONS DZ-), Other: Grandparent (ALCOHOLISM-), Brother ( ALCOHOLISM) Admission Physical Exam S - Vital Signs Vital Signs: Vital Signs - 24 hr 07/11/18 21:22 Temperature 97.6 F Pulse Rate 92 H Respiratory 18 Rate Blood Pressure 102/52 L - Physical General Appearance: Yes: Appropriately Dressed, Moderate Distress, Tremorous ( FELT), Irritable, Sweating (FLUSHING), Anxious HEENTM: Yes: EOMI, Normocephalic, Normal Voice, ANA, Pharynx Normal, Other ( MISSING TEETH) Respiratory: Yes: Chest Non-Tender, Lungs Clear, Normal Breath Sounds, No Respiratory Distress, No Accessory Muscle Use Neck: Yes: No masses,lesions,Nodules, Supple, Trachea in good position Breast: Yes: Breast Exam Deferred Cardiology: Yes: Regular Rhythm, S1, S2, Tachycardia Abdominal: Yes: Normal Bowel Sounds, Non Tender, Flat, Soft Genitourinary: Yes: Other (NO C/O) Back: Yes: Normal Inspection Musculoskeletal: Yes: full range of Motion, Gait Steady Extremities: Yes: Normal Capillary Refill, Normal Range of Motion, Non-Tender, Tremors Neurological: Yes: 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 NML intact, Fully Oriented, Alert, Motor Strength 5/5, Other (ANXIOUS , PARANOID) Integumentary: Yes: Dry, Cold (COOLLLLL) Lymphatic: Yes: Within Normal Limits - Diagnostic (1) Alcohol dependence with uncomplicated withdrawal Current Visit: Yes Status: Acute (2) Cocaine dependence Current Visit: Yes Status: Chronic Qualifiers: Substance use status: uncomplicated Qualified Code(s): F14.20 - Cocaine dependence, uncomplicated (3) OCD (obsessive compulsive disorder) Current Visit: Yes Status: Chronic Qualifiers: Obsessive-compulsive disorder type: unspecified Qualified Code(s): F42.9 - Obsessive-compulsive disorder, unspecified (4) Substance induced mood disorder Current Visit: Yes Status: Chronic (5) Bipolar disorder Current Visit: Yes Status: Chronic Comment: Historical diagnosis.No symptoms elicited. (6) DM Diabetes mellitus type 2 Current Visit: Yes Status: Chronic (7) History of herpes genitalis Current Visit: Yes Status: Chronic (8) Nicotine dependence Current Visit: Yes Status: Chronic Qualifiers: Nicotine product type: cigarettes Substance use status: in withdrawal Qualified Code(s): F17.213 - Nicotine dependence, cigarettes, with withdrawal (9) Sciatica Current Visit: Yes Status: Chronic Qualifiers: Laterality: unspecified laterality Qualified Code(s): M54.30 - Sciatica, unspecified side (10) bipolar dosorder with depression Current Visit: Yes Status: Chronic Cleared for Admission [facility] - Detox or Rehab [facility] Level of Care: Medically Managed Detox Regimen/Protocol: Librium Claeared for Rehab Admission: No S Breath Alcohol Content Breath Alcohol Content: 0.200 Urine Drug Screen - Results Drug Screen Negative: No Urine Drug Screen Results: FRANKLIN-Cocaine
[2018-07-11] MEDS ORDERED: MENTHOL/PHENOL 1 EACH UD MM PRN (21:52)
[2018-07-11] MEDS ORDERED: MAG HYDROX/AL HYDROX/SIMETH 30 ML UNIT-DOSE CUP PO PRN (21:52)
[2018-07-11] MEDS ORDERED: NICOTINE POLACRILEX 4 MG GUM BC PRN (21:52)
[2018-07-11] MEDS ORDERED: LOPERAMIDE HCL 2 MG CAPSULE PO PRN (21:52)
[2018-07-11] MEDS ORDERED: MAGNESIUM HYDROX 2400MG/30ML ORAL SUSPENSION 30 ML CUP PO PRN (21:52)
[2018-07-11] MEDS ORDERED: guaiFENesin/D-METHORPHAN HB 10 ML UNIT-DOSE CUPS PO PRN (21:52)
[2018-07-11] MEDS ORDERED: IBUPROFEN 400 MG TABLET (FP) PO PRN (21:52)
[2018-07-11] MEDS ORDERED: MAGNESIUM CITRATE 300 ML BOTTLE PO PRN (21:52)
[2018-07-11] MEDS ORDERED: P-EPHED 60MG/TRIPROLIDI 2.5MG TABLET PO PRN (21:52)
[2018-07-11] MEDS: THIAMINE HCL 100 MG TABLET (FP) PO SCH (23:23)
[2018-07-11] MEDS: chlordiazePOXIDE HCL 25 MG CAPSULE PO SCH (23:23)
[2018-07-12] MEDS: chlordiazePOXIDE HCL 25 MG CAPSULE PO SCH ×4 (04:28→22:19)
[2018-07-12] MEDS: hydrOXYzine PAMOATE 50 MG CAPSULE (FP) PO PRN ×4 (06:26→22:19)
--- NOTE | 2018-07-12 07:28 | CONSULT ---
[facility] Psychiatric Consult - Data Date of interview: 07/12/18 Admission source: [facility] Identifying data: This is a 58 years old male, father of three, living with family, unemployed, on works/comp case support, with psychiatric hospitalization history, history of Bipolar Disorder, with long history of Alcohol dependence.Cocaine, Nicotine abuse/dependence history, currently reports withdrawal symptoms and seeking detox. Substance Abuse History: - Smoking Cessation. Smoking history: Current every day smoker. Have you smoked in the past 12 months: Yes. Aproximately how many cigarettes per day: 10. Cigars Per Day: 0. Hx Chewing Tobacco Use: No. Initiated information on smoking cessation: Yes. 'Breaking Loose' booklet given : 07/11/18. - Substance & Tx. History. Hx Alcohol Use: Yes. Hx Substance Use : Yes. Substance Use Type: Alcohol, Cocaine. Hx Substance Use Treatment: Yes ( [facility]). - Substances Abused. Alcohol. Route: Oral. Frequency: Daily. Amount used: 20 OZ BEER. Age of first use: 10. Date of Last Use: 07/11/18. * * Cocaine. Route: Smoking. Frequency: 3-6 times per week. Amount used: 1 GRAM. Age of first use: 17. Date of Last Use: 07/09/18 Medical History: DM-II, COPD, LBP, Syncope history, Muscle neuropathy, Hypercholesterolemia, Psychiatric History: Patient reports history of Bipolar Disorder, reports unclear psychiatric hospitalization history on about mopre then 10 years ago, deniues suicidal, homicidal history, reports non-compliance with psychiatric medicvations and asking to restart his Vistaril 50mg prn and Gabapentin 400mg po tid. Denies suicidal, homicidal ideations Psychiatric Findings - Problem List ([place] 1, 2,3) (1) Alcohol dependence with uncomplicated withdrawal Current Visit: Yes Status: Acute (2) Bipolar disorder Current Visit: Yes Status: Chronic Comment: Historical diagnosis.No symptoms elicited. (3) Cocaine dependence Current Visit: Yes Status: Chronic Qualifiers: Substance use status: uncomplicated Qualified Code(s): F14.20 - Cocaine dependence, uncomplicated (4) DM Diabetes mellitus type 2 Current Visit: Yes Status: Chronic (5) OCD (obsessive compulsive disorder) Current Visit: Yes Status: Chronic Qualifiers: Obsessive-compulsive disorder type: unspecified Qualified Code(s): F42.9 - Obsessive-compulsive disorder, unspecified (6) Sciatica Current Visit: Yes Status: Chronic Qualifiers: Laterality: unspecified laterality Qualified Code(s): M54.30 - Sciatica, unspecified side (7) Substance induced mood disorder Current Visit: Yes Status: Chronic (8) bipolar dosorder with depression Current Visit: Yes Status: Chronic (9) Cannabis dependence Current Visit: No Status: Acute (10) Non-compliant patient Current Visit: No Status: Acute (11) Syncope Current Visit: No Status: Acute (12) Lumbago Current Visit: No Status: Chronic Qualifiers: Chronicity: chronic Back pain laterality: bilateral Sciatica presence: with sciatica Sciatica laterality: bilateral sciatica Qualified Code(s): M54.42 - Lumbago with sciatica, left side; M54.41 - Lumbago with sciatica, right side; G89.29 - Other chronic pain (13) Neuropathy Current Visit: No Status: Chronic (14) hypercholesterolemia Current Visit: No Status: Chronic (15) low back pain herniated disc Current Visit: No Status: Chronic
[2018-07-12 09:46] LABS: EOS % 5.5 % (0-4.5); HEMATOCRIT 41.9 % (35.4-49); HEMOGLOBIN 14.8 GM/dL (11.7-16.9); LYMPH % 39.5 % (8-40); MCHC 35.2 g/dl (32.0-35.9); MEAN CELL VOLUME 88.1 fl (80-96); MEAN PLT VOLUME 6.3 fl (7.5-11.1); MONO % 10.3 % (3.8-10.2); NEUT % 42.7 % (42.8-82.8); PLATELET COUNT 282 K/MM3 (134-434); RBC 4.76 M/mm3 (4.00-5.60); WHITE BLOOD COUNT 6.6 K/mm3 (4.0-10.0)
[2018-07-12 09:54] LABS: URINE APPEARANCE CLEAR; URINE BILIRUBIN NEGATIVE (<2.0 mg/dL); URINE COLOR LTYELLOW; URINE GLUCOSE (UA) NEGATIVE (NEGATIVE); URINE KETONE NEGATIVE (NEGATIVE); URINE LEUK ESTERASE NEGATIVE (NEGATIVE); URINE NITRITE NEGATIVE (NEGATIVE); URINE PROTEIN NEGATIVE (NEGATIVE); URINE UROBILINOGEN NEGATIVE mg/dL (0.2-1.0)
[2018-07-12 10:00] LABS: ALBUMIN 3.7 g/dl (3.4-5.0); ALK PHOS 58 U/L (45-117); ANION GAP 9 MMOL/L (8-16); BILIRUBIN,TOTAL 0.4 mg/dL (0.2-1); BLOOD UREA NITROGEN 12 mg/dL (7-18); CALCIUM 8.4 mg/dL (8.5-10.1); CHLORIDE 108 mmol/L (98-107); CO2 25 mmol/L (21-32); CREATININE 0.8 mg/dL (0.55-1.3); GLUCOSE,RANDOM 112 mg/dL (74-106); SGOT/AST 19 U/L (15-37); SGPT/ALT 27 U/L (13-61); SODIUM 142 mmol/L (136-145)
[2018-07-12] MEDS: NICOTINE 21 MG/24 HOURS TOPICAL PATCH TD SCH (10:13)
[2018-07-12] MEDS: PRENATAL VITAMINS W/ FOLIC ACID TABLET (FP) PO SCH (10:13)
[2018-07-12] MEDS ORDERED: hydrOXYzine HCL 100 MG/2 ML VIAL IM PRN (10:43)
--- NOTE | 2018-07-12 13:43 | EKG ---
Test Reason : Blood Pressure : / mmHG Vent. Rate : 078 BPM Atrial Rate : 078 BPM P-R Int : 156 ms QRS Dur : 086 ms QT Int : 400 ms P-R-T Axes : 053 -01 024 degrees QTc Int : 456 ms NORMAL SINUS RHYTHM NORMAL ECG WHEN COMPARED WITH ECG OF 20-APR-2018 12:02, NO SIGNIFICANT CHANGE WAS FOUND Confirmed by RICHARD COLE MD ([id number]) on 07/12/2018 1:42:38 PM Referred By: Confirmed By:RICHARD COLE MD
[2018-07-12] MEDS: GABAPENTIN 400 MG CAPSULE (FP) PO SCH ×2 (13:48→22:19)
--- NOTE | 2018-07-12 14:10 | PN ---
[facility] CIWA - CIWA Score Nausea/Vomitin-No Nausea/No Vomiting Muscle Tremors: None Anxiety: 4-Mod. Anxious/Guarded Agitation: 1-Slight > Activity Paroxysmal Sweats: 3 Orientation: 0-Oriented Tacttile Disturbances: 3-Moderate Itch/Numb/Burn Auditory Disturbances: 0-None Visual Disturbances: 2-Mild Sensitivity Headache: 0-None Present CIWA-Ar Total Score: 13 S Progress Note (SOAP) Subjective: Body Aches, Anxious, Sweating. Objective: PATIENT A & O X 3. IN NO ACUTE DISTRESS. 07/12/18 14:08 Vital Signs Temperature 98.1 F 07/12/18 13:24 Pulse Rate 76 07/12/18 13:24 Respiratory Rate 16 07/12/18 13:24 Blood Pressure 125/69 07/12/18 13:24 O2 Sat by Pulse Oximetry (%) Laboratory Tests 07/12/18 07/12/18 07/12/18 06:23 07:00 07:00 WBC RBC Hgb Hct MCV MCH MCHC RDW Plt Count MPV Absolute Neuts (auto) Neutrophils % Lymphocytes % Monocytes % Eosinophils % Basophils % Nucleated RBC % Sodium 142 Potassium 4.0 Chloride 108 H Carbon Dioxide 25 Anion Gap 9 BUN 12 Creatinine 0.8 Creat Clearance w eGFR > 60 POC Glucometer 123 Random Glucose 112 H Calcium 8.4 L Total Bilirubin 0.4 AST 19 ALT 27 Alkaline Phosphatase 58 Total Protein 7.0 Albumin 3.7 Urine Color Urine Appearance Urine pH Ur Specific [place] Urine Protein Urine Glucose (UA) Urine Ketones Urine Blood Urine Nitrite Urine Bilirubin Urine Urobilinogen Ur Leukocyte Esterase RPR Titer Nonreactive 07/12/18 07/12/18 07:00 07:00 WBC 6.6 RBC 4.76 Hgb 14.8 Hct 41.9 MCV 88.1 MCH 31.0 MCHC 35.2 RDW 13.0 Plt Count 282 MPV 6.3 L D Absolute Neuts (auto) 2.8 Neutrophils % 42.7 L Lymphocytes % 39.5 Monocytes % 10.3 H Eosinophils % 5.5 H Basophils % 2.0 Nucleated RBC % 0 Sodium Potassium Chloride Carbon Dioxide Anion Gap BUN Creatinine Creat Clearance w eGFR POC Glucometer Random Glucose Calcium Total Bilirubin AST ALT Alkaline Phosphatase Total Protein Albumin Urine Color Ltyellow Urine Appearance Clear Urine pH 5.0 Ur Specific [place] 1.014 Urine Protein Negative Urine Glucose (UA) Negative Urine Ketones Negative Urine Blood Negative Urine Nitrite Negative Urine Bilirubin Negative Urine Urobilinogen Negative Ur Leukocyte Esterase Negative RPR Titer LABS NOTED. Assessment: 07/12/18 14:09 WITHDRAWAL SYMPTOMS. Plan: CONTINUE DETOX.
[2018-07-12] MEDS: THIAMINE HCL 100 MG TABLET (FP) PO SCH (22:18)
[2018-07-13] MEDS: GABAPENTIN 400 MG CAPSULE (FP) PO SCH ×3 (05:43→22:24)
[2018-07-13] MEDS: chlordiazePOXIDE HCL 25 MG CAPSULE PO SCH ×3 (05:43→16:50)
[2018-07-13] MEDS: hydrOXYzine PAMOATE 50 MG CAPSULE (FP) PO PRN ×3 (09:41→18:44)
[2018-07-13] MEDS: PRENATAL VITAMINS W/ FOLIC ACID TABLET (FP) PO SCH (10:11)
[2018-07-13] MEDS: NICOTINE 21 MG/24 HOURS TOPICAL PATCH TD SCH (10:11)
[2018-07-13] MEDS: chlordiazePOXIDE HCL 25 MG CAPSULE PO PRN (12:28)
--- NOTE | 2018-07-13 13:41 | PN ---
S CIWA - CIWA Score Nausea/Vomitin-No Nausea/No Vomiting Muscle Tremors: None Anxiety: 4-Mod. Anxious/Guarded Agitation: 0-Normal Activity Paroxysmal Sweats: 3 Orientation: 0-Oriented Tacttile Disturbances: 1-Very Mild Itch/Numbness Auditory Disturbances: 0-None Visual Disturbances: 2-Mild Sensitivity Headache: 0-None Present CIWA-Ar Total Score: 10 [facility] Progress Note (SOAP) Subjective: Sweating, Body Aches, Anxious. Objective: PATIENT A & O X 3. IN NO ACUTE DISTRESS. 07/13/18 13:39 Vital Signs Temperature 97.0 F L 07/13/18 13:30 Pulse Rate 96 H 07/13/18 13:30 Respiratory Rate 18 07/13/18 13:30 Blood Pressure 157/77 07/13/18 13:30 O2 Sat by Pulse Oximetry (%) Laboratory Tests 07/12/18 07/12/18 07/12/18 06:23 07:00 07:00 WBC RBC Hgb Hct MCV MCH MCHC RDW Plt Count MPV Absolute Neuts (auto) Neutrophils % Lymphocytes % Monocytes % Eosinophils % Basophils % Nucleated RBC % Sodium 142 Potassium 4.0 Chloride 108 H Carbon Dioxide 25 Anion Gap 9 BUN 12 Creatinine 0.8 Creat Clearance w eGFR > 60 POC Glucometer 123 Random Glucose 112 H Calcium 8.4 L Total Bilirubin 0.4 AST 19 ALT 27 Alkaline Phosphatase 58 Total Protein 7.0 Albumin 3.7 Urine Color Urine Appearance Urine pH Ur Specific [place] Urine Protein Urine Glucose (UA) Urine Ketones Urine Blood Urine Nitrite Urine Bilirubin Urine Urobilinogen Ur Leukocyte Esterase RPR Titer Nonreactive 07/12/18 07/12/18 07/13/18 07:00 07:00 05:48 WBC 6.6 RBC 4.76 Hgb 14.8 Hct 41.9 MCV 88.1 MCH 31.0 MCHC 35.2 RDW 13.0 Plt Count 282 MPV 6.3 L D Absolute Neuts (auto) 2.8 Neutrophils % 42.7 L Lymphocytes % 39.5 Monocytes % 10.3 H Eosinophils % 5.5 H Basophils % 2.0 Nucleated RBC % 0 Sodium Potassium Chloride Carbon Dioxide Anion Gap BUN Creatinine Creat Clearance w eGFR POC Glucometer 101 Random Glucose Calcium Total Bilirubin AST ALT Alkaline Phosphatase Total Protein Albumin Urine Color Ltyellow Urine Appearance Clear Urine pH 5.0 Ur Specific [place] 1.014 Urine Protein Negative Urine Glucose (UA) Negative Urine Ketones Negative Urine Blood Negative Urine Nitrite Negative Urine Bilirubin Negative Urine Urobilinogen Negative Ur Leukocyte Esterase Negative RPR Titer LABS NOTED. Assessment: 07/13/18 13:40 WITHDRAWAL SYMPTOMS. Plan: CONTINUE DETOX. SYSTOLIC BP NOTED TO BE ELEVATED ON AFTERNOON VS ASSESSMENT. CONTINUE TO MONITOR BP.
[2018-07-13] MEDS: MELATONIN 5 MG TABLETS PO PRN (22:24)
[2018-07-13] MEDS: chlordiazePOXIDE 5 MG CAPSULE PO SCH (22:24)
[2018-07-13] MEDS: THIAMINE HCL 100 MG TABLET (FP) PO SCH (22:24)
[2018-07-14] MEDS: GABAPENTIN 400 MG CAPSULE (FP) PO SCH ×3 (06:28→22:59)
[2018-07-14] MEDS: chlordiazePOXIDE 5 MG CAPSULE PO SCH ×3 (06:28→18:12)
[2018-07-14] MEDS: hydrOXYzine PAMOATE 50 MG CAPSULE (FP) PO PRN ×3 (09:15→23:01)
[2018-07-14] MEDS: NICOTINE 21 MG/24 HOURS TOPICAL PATCH TD SCH (10:45)
[2018-07-14] MEDS: PRENATAL VITAMINS W/ FOLIC ACID TABLET (FP) PO SCH (10:46)
[2018-07-14] MEDS: IBUPROFEN 600 MG TABLET (FP) PO PRN ×2 (10:49→22:59)
--- NOTE | 2018-07-14 12:24 | PN ---
S Progress Note (SOAP) Subjective: pt states he has a lot of anxiety that he uses high doses of vistaril to control this. Does not like or use meds for this. O: Vital Signs - 24 hr 07/13/18 07/13/18 07/14/18 17:49 20:59 00:30 Temperature 97.2 F L 97.8 F Pulse Rate 90 90 Respiratory 16 18 18 Rate Blood Pressure 142/70 118/58 L 07/14/18 07/14/18 07/14/18 03:30 08:09 09:17 Temperature 97.5 F L 97.2 F L Pulse Rate 74 88 Respiratory 18 18 20 Rate Blood Pressure 121/68 128/60 07/14/18 13:46 Temperature 97.0 F L Pulse Rate 97 H Respiratory 18 Rate Blood Pressure 109/75 Laboratory Tests 07/12/18 07/12/18 07/12/18 06:23 07:00 07:00 WBC RBC Hgb Hct MCV MCH MCHC RDW Plt Count MPV Absolute Neuts (auto) Neutrophils % Lymphocytes % Monocytes % Eosinophils % Basophils % Nucleated RBC % Sodium 142 Potassium 4.0 Chloride 108 H Carbon Dioxide 25 Anion Gap 9 BUN 12 Creatinine 0.8 Creat Clearance w eGFR > 60 POC Glucometer 123 Random Glucose 112 H Calcium 8.4 L Total Bilirubin 0.4 AST 19 ALT 27 Alkaline Phosphatase 58 Total Protein 7.0 Albumin 3.7 Urine Color Urine Appearance Urine pH Ur Specific [place] Urine Protein Urine Glucose (UA) Urine Ketones Urine Blood Urine Nitrite Urine Bilirubin Urine Urobilinogen Ur Leukocyte Esterase RPR Titer Nonreactive 07/12/18 07/12/18 07/13/18 07:00 07:00 05:48 WBC 6.6 RBC 4.76 Hgb 14.8 Hct 41.9 MCV 88.1 MCH 31.0 MCHC 35.2 RDW 13.0 Plt Count 282 MPV 6.3 L D Absolute Neuts (auto) 2.8 Neutrophils % 42.7 L Lymphocytes % 39.5 Monocytes % 10.3 H Eosinophils % 5.5 H Basophils % 2.0 Nucleated RBC % 0 Sodium Potassium Chloride Carbon Dioxide Anion Gap BUN Creatinine Creat Clearance w eGFR POC Glucometer 101 Random Glucose Calcium Total Bilirubin AST ALT Alkaline Phosphatase Total Protein Albumin Urine Color Ltyellow Urine Appearance Clear Urine pH 5.0 Ur Specific [place] 1.014 Urine Protein Negative Urine Glucose (UA) Negative Urine Ketones Negative Urine Blood Negative Urine Nitrite Negative Urine Bilirubin Negative Urine Urobilinogen Negative Ur Leukocyte Esterase Negative RPR Titer a/p: continue alcohol detox protocol pt on vistaril 50mg q 4h prn. f/u with PCP at discharge
[2018-07-14] MEDS: chlordiazePOXIDE HCL 25 MG CAPSULE PO PRN (18:21)
[2018-07-14] MEDS: chlordiazePOXIDE HCL 10 MG CAPSULE PO SCH (22:59)
[2018-07-14] MEDS: THIAMINE HCL 100 MG TABLET (FP) PO SCH (23:02)
[2018-07-15] MEDS: MELATONIN 5 MG TABLETS PO PRN ×2 (00:26→21:10)
[2018-07-15] MEDS: chlordiazePOXIDE HCL 10 MG CAPSULE PO SCH ×2 (06:16→10:12)
[2018-07-15] MEDS: IBUPROFEN 600 MG TABLET (FP) PO PRN ×2 (06:17→16:37)
[2018-07-15] MEDS: GABAPENTIN 400 MG CAPSULE (FP) PO SCH ×3 (06:17→21:09)
[2018-07-15] MEDS: hydrOXYzine PAMOATE 50 MG CAPSULE (FP) PO PRN ×3 (07:43→21:09)
[2018-07-15] MEDS: PRENATAL VITAMINS W/ FOLIC ACID TABLET (FP) PO SCH (10:11)
[2018-07-15] MEDS: NICOTINE 21 MG/24 HOURS TOPICAL PATCH TD SCH (10:12)
--- NOTE | 2018-07-15 12:05 | DS ---
[facility] Detox Discharge Summary Admission Date: 07/11/18 Discharge Date: 07/15/18 - History Present History: Alcohol Dependence, Cocaine Dependence - Physical Exam Results Vital Signs: Vital Signs Temperature 97.7 F 07/15/18 06:12 Pulse Rate 73 07/15/18 06:12 Respiratory Rate 18 07/15/18 06:12 Blood Pressure 123/76 07/15/18 06:12 O2 Sat by Pulse Oximetry (%) - Treatment Hospital Course: Detox Protocol Followed, Detoxed Safely, Responded well, Discharged Condition Good, Rehab Referral Accepted - Medication Discharge Medications: Ambulatory Orders Gabapentin [Neurontin -] 400 mg PO TID 03/24/18 Valacyclovir HCl [Valtrex -] 500 mg PO DAILY #7 tablet 04/24/18 Tizanidine HCl [Zanaflex] 4 mg PO TID 07/11/18 Gabapentin [Neurontin -] 400 mg PO TID #90 capsule 07/12/18 Hydroxyzine HCl 100 mg PO TID #90 tablet 07/12/18 - AMA Did Patient Leave Against Medical Advice: No (transferred to [address] [place] [address] rehab)
--- NOTE | 2018-07-15 12:07 | HP ---
[facility] Rehab Assess/Revision - Admission History Admitted to Rehab from: [facility] [address] [place] - Vital signs Vital Signs: Vital Signs Period Temp Pulse Resp BP Sys/Dhaliwal Pulse Ox Last 24 Hr 96.3 F-98.2 F 73-102 18-18 101-123/69-76 - Findings Detox History & Physical reviewed: Yes Concur with findings: Yes Inpatient Rehab Admission - Initial Determination Free of communicable disease: Yes - Rehab Admission Criteria Previous failed treatment: Yes Poor recovery environment: Yes Comorbidities: Yes
--- NOTE | 2018-07-15 15:38 | PN ---
[facility] Progress Note Note: NOTIFIED BY RN THAT PATIENT TRANSFERRED FROM [address] [place] [address] AFTER COMPLETING ETOH DETOX AND IS COMPLAINING OF ANXIETY AND POOR SLEEP. PATIENT CURRENTLY ON VISTARIL AND MELATONIN 5MG PRN. WILL ADD ONE DOSE OF CLONIDINE 0.1MG AND INCREASE MELATONIN TO 10MG PRN. CONTINUE TO MONITOR CLINICALLY. Vital Signs Temperature 97.7 F 07/15/18 14:03 Pulse Rate 73 07/15/18 14:03 Respiratory Rate 18 07/15/18 14:03 Blood Pressure 123/76 07/15/18 14:03 O2 Sat by Pulse Oximetry (%)
[2018-07-15] MEDS ORDERED: cloNIDine HCL 0.1 MG TABLET PO ONE (15:45)
[2018-07-15] MEDS: THIAMINE HCL 100 MG TABLET (FP) PO SCH (21:09)
[2018-07-16] MEDS: hydrOXYzine PAMOATE 50 MG CAPSULE (FP) PO PRN ×4 (04:31→21:28)
[2018-07-16] MEDS: GABAPENTIN 400 MG CAPSULE (FP) PO SCH ×3 (07:06→21:28)
[2018-07-16] MEDS: PRENATAL VITAMINS W/ FOLIC ACID TABLET (FP) PO SCH (09:56)
[2018-07-16] MEDS: IBUPROFEN 600 MG TABLET (FP) PO PRN (09:57)
[2018-07-16] MEDS: NICOTINE 21 MG/24 HOURS TOPICAL PATCH TD SCH (09:58)
[2018-07-16] MEDS ORDERED: valACYclovir HCL 500 MG TABLET (FP) PO SCH (10:00)
--- NOTE | 2018-07-16 18:06 | PN ---
[facility] Progress Note Note: pt requesting a higher dose of valtrex for genital herpes outbreak: increased to 500mg BID per guidelines for 5 days. Pt would like HIV test
[2018-07-16] MEDS: valACYclovir HCL 500 MG TABLET (FP) PO SCH ×2 (19:48→21:28)
[2018-07-16] MEDS: cloNIDine HCL 0.1 MG TABLET PO PRN (21:31)
[2018-07-16] MEDS: THIAMINE HCL 100 MG TABLET (FP) PO SCH (21:31)
[2018-07-17] MEDS: GABAPENTIN 400 MG CAPSULE (FP) PO SCH ×3 (05:48→21:29)
[2018-07-17] MEDS: hydrOXYzine PAMOATE 50 MG CAPSULE (FP) PO PRN ×4 (05:50→21:29)
[2018-07-17] MEDS: valACYclovir HCL 500 MG TABLET (FP) PO SCH ×2 (09:52→21:29)
[2018-07-17] MEDS: PRENATAL VITAMINS W/ FOLIC ACID TABLET (FP) PO SCH (09:52)
[2018-07-17] MEDS: IBUPROFEN 600 MG TABLET (FP) PO PRN (09:52)
[2018-07-17] MEDS: NICOTINE 21 MG/24 HOURS TOPICAL PATCH TD SCH (09:53)
[2018-07-17] MEDS: THIAMINE HCL 100 MG TABLET (FP) PO SCH (21:29)
[2018-07-17] MEDS: cloNIDine HCL 0.1 MG TABLET PO PRN (21:29)
[2018-07-18] MEDS: MELATONIN 5 MG TABLETS PO PRN ×2 (00:50→22:02)
[2018-07-18] MEDS: GABAPENTIN 400 MG CAPSULE (FP) PO SCH ×3 (06:15→21:58)
[2018-07-18] MEDS: hydrOXYzine PAMOATE 50 MG CAPSULE (FP) PO PRN ×3 (06:16→21:58)
[2018-07-18] MEDS: PRENATAL VITAMINS W/ FOLIC ACID TABLET (FP) PO SCH (09:38)
[2018-07-18] MEDS: NICOTINE 21 MG/24 HOURS TOPICAL PATCH TD SCH (09:38)
[2018-07-18] MEDS: valACYclovir HCL 500 MG TABLET (FP) PO SCH ×2 (09:38→21:58)
[2018-07-18] MEDS: IBUPROFEN 600 MG TABLET (FP) PO PRN (16:58)
[2018-07-18] MEDS: cloNIDine HCL 0.1 MG TABLET PO PRN (21:58)
[2018-07-18] MEDS: THIAMINE HCL 100 MG TABLET (FP) PO SCH (21:59)
[2018-07-19] MEDS: GABAPENTIN 400 MG CAPSULE (FP) PO SCH ×3 (06:23→21:51)
[2018-07-19] MEDS: hydrOXYzine PAMOATE 50 MG CAPSULE (FP) PO PRN ×3 (06:24→21:51)
[2018-07-19] MEDS ORDERED: PT OWN MED DRAWER 7, Y5N ONE (08:49)
[2018-07-19] MEDS: PRENATAL VITAMINS W/ FOLIC ACID TABLET (FP) PO SCH (09:59)
[2018-07-19] MEDS: NICOTINE 21 MG/24 HOURS TOPICAL PATCH TD SCH (10:00)
[2018-07-19] MEDS: valACYclovir HCL 500 MG TABLET (FP) PO SCH ×2 (10:14→21:50)
--- NOTE | 2018-07-19 10:44 | PN ---
[facility] Progress Note Note: PATIENT C/O INSOMNIA DESPITE TAKING MELATONIN 10MG HS. PATIENT STATES HE SLEEPS FOR 1-2 HOURS THEN WAKES UP AND CANNOT FALL ASLEEP AGAIN. PATIENT DENIES HEADACHE, DIZZINESS AND LETHARGY. Vital Signs Temperature 97.1 F L 07/19/18 07:10 Pulse Rate 85 07/19/18 09:00 Respiratory Rate 07/19/18 07:10 Blood Pressure 115/65 07/19/18 09:00 O2 Sat by Pulse Oximetry (%) Laboratory Tests 07/12/18 07/12/18 07/12/18 06:23 07:00 07:00 WBC RBC Hgb Hct MCV MCH MCHC RDW Plt Count MPV Absolute Neuts (auto) Neutrophils % Lymphocytes % Monocytes % Eosinophils % Basophils % Nucleated RBC % Sodium 142 Potassium 4.0 Chloride 108 H Carbon Dioxide 25 Anion Gap 9 BUN 12 Creatinine 0.8 Creat Clearance w eGFR > 60 POC Glucometer 123 Random Glucose 112 H Calcium 8.4 L Total Bilirubin 0.4 AST 19 ALT 27 Alkaline Phosphatase 58 Total Protein 7.0 Albumin 3.7 Urine Color Urine Appearance Urine pH Ur Specific [place] Urine Protein Urine Glucose (UA) Urine Ketones Urine Blood Urine Nitrite Urine Bilirubin Urine Urobilinogen Ur Leukocyte Esterase RPR Titer Nonreactive HIV 1&2 Antibody Screen HIV P24 Antigen 07/12/18 07/12/18 07/13/18 07:00 07:00 05:48 WBC 6.6 RBC 4.76 Hgb 14.8 Hct 41.9 MCV 88.1 MCH 31.0 MCHC 35.2 RDW 13.0 Plt Count 282 MPV 6.3 L D Absolute Neuts (auto) 2.8 Neutrophils % 42.7 L Lymphocytes % 39.5 Monocytes % 10.3 H Eosinophils % 5.5 H Basophils % 2.0 Nucleated RBC % 0 Sodium Potassium Chloride Carbon Dioxide Anion Gap BUN Creatinine Creat Clearance w eGFR POC Glucometer 101 Random Glucose Calcium Total Bilirubin AST ALT Alkaline Phosphatase Total Protein Albumin Urine Color Ltyellow Urine Appearance Clear Urine pH 5.0 Ur Specific [place] 1.014 Urine Protein Negative Urine Glucose (UA) Negative Urine Ketones Negative Urine Blood Negative Urine Nitrite Negative Urine Bilirubin Negative Urine Urobilinogen Negative Ur Leukocyte Esterase Negative RPR Titer HIV 1&2 Antibody Screen HIV P24 Antigen 07/15/18 07/16/18 06:50 06:00 WBC RBC Hgb Hct MCV MCH MCHC RDW Plt Count MPV Absolute Neuts (auto) Neutrophils % Lymphocytes % Monocytes % Eosinophils % Basophils % Nucleated RBC % Sodium Potassium Chloride Carbon Dioxide Anion Gap BUN Creatinine Creat Clearance w eGFR POC Glucometer 151 Random Glucose Calcium Total Bilirubin AST ALT Alkaline Phosphatase Total Protein Albumin Urine Color Urine Appearance Urine pH Ur Specific [place] Urine Protein Urine Glucose (UA) Urine Ketones Urine Blood Urine Nitrite Urine Bilirubin Urine Urobilinogen Ur Leukocyte Esterase RPR Titer HIV 1&2 Antibody Screen Negative HIV P24 Antigen Negative PE: ALERT AND ORIENTED X 3 SKIN WARM AND DRY EXT FULL ROM, AMB AD CHUY +MILD ANXIETY A/P INSOMNIA WILL D/C MELATONIN START BELSOMRA 10MG PO HS PRN CONTINUE TO MONITOR CLINICALLY
[2018-07-19] MEDS: IBUPROFEN 600 MG TABLET (FP) PO PRN (18:02)
[2018-07-19] MEDS: THIAMINE HCL 100 MG TABLET (FP) PO SCH (21:50)
[2018-07-19] MEDS: SUVOREXANT 10 MG TABLET PO PRN (21:50)
[2018-07-20] MEDS: GABAPENTIN 400 MG CAPSULE (FP) PO SCH ×3 (07:15→21:02)
[2018-07-20] MEDS: hydrOXYzine PAMOATE 50 MG CAPSULE (FP) PO PRN ×2 (07:15→10:15)
--- NOTE | 2018-07-20 09:18 | PN ---
[facility] Progress Note Note: PATIENT REQUESTED TO REVIEW LABS WITH [employer]YW[employer] HANGER HELPER. PATIENT ALSO STATED BELSOMRA HELPED WITH INSOMNIA BUT WOULD LIKE MELATONIN ADDED NEEDED WELL. Vital Signs Temperature 98.1 F 07/20/18 07:33 Pulse Rate 81 07/20/18 07:33 Respiratory Rate 18 07/20/18 07:33 Blood Pressure 113/80 07/20/18 07:33 O2 Sat by Pulse Oximetry (%) Laboratory Tests 07/12/18 07/12/18 07/12/18 06:23 07:00 07:00 WBC RBC Hgb Hct MCV MCH MCHC RDW Plt Count MPV Absolute Neuts (auto) Neutrophils % Lymphocytes % Monocytes % Eosinophils % Basophils % Nucleated RBC % Sodium 142 Potassium 4.0 Chloride 108 H Carbon Dioxide 25 Anion Gap 9 BUN 12 Creatinine 0.8 Creat Clearance w eGFR > 60 POC Glucometer 123 Random Glucose 112 H Calcium 8.4 L Total Bilirubin 0.4 AST 19 ALT 27 Alkaline Phosphatase 58 Total Protein 7.0 Albumin 3.7 Urine Color Urine Appearance Urine pH Ur Specific Dex[place] Urine Protein Urine Glucose (UA) Urine Ketones Urine Blood Urine Nitrite Urine Bilirubin Urine Urobilinogen Ur Leukocyte Esterase RPR Titer Nonreactive Hep C Ab Diagnostic HIV 1&2 Antibody Screen HIV P24 Antigen 07/12/18 07/12/18 07/13/18 07:00 07:00 05:48 WBC 6.6 RBC 4.76 Hgb 14.8 Hct 41.9 MCV 88.1 MCH 31.0 MCHC 35.2 RDW 13.0 Plt Count 282 MPV 6.3 L D Absolute Neuts (auto) 2.8 Neutrophils % 42.7 L Lymphocytes % 39.5 Monocytes % 10.3 H Eosinophils % 5.5 H Basophils % 2.0 Nucleated RBC % 0 Sodium Potassium Chloride Carbon Dioxide Anion Gap BUN Creatinine Creat Clearance w eGFR POC Glucometer 101 Random Glucose Calcium Total Bilirubin AST ALT Alkaline Phosphatase Total Protein Albumin Urine Color Ltyellow Urine Appearance Clear Urine pH 5.0 Ur Specific Dex[place] 1.014 Urine Protein Negative Urine Glucose (UA) Negative Urine Ketones Negative Urine Blood Negative Urine Nitrite Negative Urine Bilirubin Negative Urine Urobilinogen Negative Ur Leukocyte Esterase Negative RPR Titer Hep C Ab Diagnostic HIV 1&2 Antibody Screen HIV P24 Antigen 07/15/18 07/16/18 07/18/18 06:50 06:00 07:50 WBC RBC Hgb Hct MCV MCH MCHC RDW Plt Count MPV Absolute Neuts (auto) Neutrophils % Lymphocytes % Monocytes % Eosinophils % Basophils % Nucleated RBC % Sodium Potassium Chloride Carbon Dioxide Anion Gap BUN Creatinine Creat Clearance w eGFR POC Glucometer 151 Random Glucose Calcium Total Bilirubin AST ALT Alkaline Phosphatase Total Protein Albumin Urine Color Urine Appearance Urine pH Ur Specific Dex[place] Urine Protein Urine Glucose (UA) Urine Ketones Urine Blood Urine Nitrite Urine Bilirubin Urine Urobilinogen Ur Leukocyte Esterase RPR Titer Hep C Ab Diagnostic 0.2 HIV 1&2 Antibody Screen Negative HIV P24 Antigen Negative 07/20/18 07:17 WBC RBC Hgb Hct MCV MCH MCHC RDW Plt Count MPV Absolute Neuts (auto) Neutrophils % Lymphocytes % Monocytes % Eosinophils % Basophils % Nucleated RBC % Sodium Potassium Chloride Carbon Dioxide Anion Gap BUN Creatinine Creat Clearance w eGFR POC Glucometer 98 Random Glucose Calcium Total Bilirubin AST ALT Alkaline Phosphatase Total Protein Albumin Urine Color Urine Appearance Urine pH Ur Specific Dexter Urine Protein Urine Glucose (UA) Urine Ketones Urine Blood Urine Nitrite Urine Bilirubin Urine Urobilinogen Ur Leukocyte Esterase RPR Titer Hep C Ab Diagnostic HIV 1&2 Antibody Screen HIV P24 Antigen PE; ALERT AND ORIENTED X 3 SKIN WARM AND DRY EXT FULL ROM AMB AD CHUY A/P INSOMNIA LAB REVIEW WILL ADD MELATONIN 5MG PRN LABS STABLE CONTINUE TO MONITOR CLINICALLY
[2018-07-20] MEDS: NICOTINE 21 MG/24 HOURS TOPICAL PATCH TD SCH (10:15)
[2018-07-20] MEDS: PRENATAL VITAMINS W/ FOLIC ACID TABLET (FP) PO SCH (10:15)
[2018-07-20] MEDS: valACYclovir HCL 500 MG TABLET (FP) PO SCH ×2 (10:15→21:01)
[2018-07-20] MEDS: THIAMINE HCL 100 MG TABLET (FP) PO SCH (21:02)
[2018-07-20] MEDS: SUVOREXANT 10 MG TABLET PO PRN (21:03)
[2018-07-20] MEDS: MELATONIN 5 MG TABLETS PO PRN (21:04)
[2018-07-21] MEDS: ACETAMINOPHEN 325 MG TABLET (FP) PO PRN (06:25)
[2018-07-21] MEDS: GABAPENTIN 400 MG CAPSULE (FP) PO SCH ×3 (06:26→21:48)
[2018-07-21] MEDS: hydrOXYzine PAMOATE 50 MG CAPSULE (FP) PO PRN ×2 (06:27→21:48)
[2018-07-21] MEDS: PRENATAL VITAMINS W/ FOLIC ACID TABLET (FP) PO SCH (09:50)
[2018-07-21] MEDS: IBUPROFEN 600 MG TABLET (FP) PO PRN (09:51)
[2018-07-21] MEDS: NICOTINE 21 MG/24 HOURS TOPICAL PATCH TD SCH (10:20)
[2018-07-21] MEDS: SUVOREXANT 10 MG TABLET PO PRN (21:48)
[2018-07-21] MEDS: THIAMINE HCL 100 MG TABLET (FP) PO SCH (21:48)
[2018-07-21] MEDS: cloNIDine HCL 0.1 MG TABLET PO PRN (21:48)
[2018-07-21] MEDS: MELATONIN 5 MG TABLETS PO PRN (21:48)
[2018-07-22] MEDS: GABAPENTIN 400 MG CAPSULE (FP) PO SCH ×3 (06:00→21:15)
[2018-07-22] MEDS: ACETAMINOPHEN 325 MG TABLET (FP) PO PRN (06:34)
[2018-07-22] MEDS: NICOTINE 21 MG/24 HOURS TOPICAL PATCH TD SCH (09:40)
[2018-07-22] MEDS: hydrOXYzine PAMOATE 50 MG CAPSULE (FP) PO PRN ×2 (09:40→21:15)
[2018-07-22] MEDS: PRENATAL VITAMINS W/ FOLIC ACID TABLET (FP) PO SCH (09:40)
[2018-07-22] MEDS: THIAMINE HCL 100 MG TABLET (FP) PO SCH (21:15)
[2018-07-22] MEDS: MELATONIN 5 MG TABLETS PO PRN (21:15)
[2018-07-22] MEDS: SUVOREXANT 10 MG TABLET PO PRN (21:16)
[2018-07-23] MEDS: hydrOXYzine PAMOATE 50 MG CAPSULE (FP) PO PRN ×4 (02:33→21:05)
[2018-07-23] MEDS: GABAPENTIN 400 MG CAPSULE (FP) PO SCH ×3 (06:01→21:05)
[2018-07-23] MEDS: PRENATAL VITAMINS W/ FOLIC ACID TABLET (FP) PO SCH (09:32)
[2018-07-23] MEDS: IBUPROFEN 600 MG TABLET (FP) PO PRN (09:33)
[2018-07-23] MEDS: NICOTINE 21 MG/24 HOURS TOPICAL PATCH TD SCH (10:04)
[2018-07-23] MEDS: THIAMINE HCL 100 MG TABLET (FP) PO SCH (21:03)
[2018-07-23] MEDS: MELATONIN 5 MG TABLETS PO PRN (21:03)
[2018-07-23] MEDS ORDERED: SUVOREXANT 10 MG TABLET PO PRN (22:00)
[2018-07-24] MEDS: GABAPENTIN 400 MG CAPSULE (FP) PO SCH ×3 (06:27→21:13)
[2018-07-24] MEDS: NICOTINE 21 MG/24 HOURS TOPICAL PATCH TD SCH (10:04)
[2018-07-24] MEDS: PRENATAL VITAMINS W/ FOLIC ACID TABLET (FP) PO SCH (10:04)
[2018-07-24] MEDS: hydrOXYzine PAMOATE 50 MG CAPSULE (FP) PO PRN ×2 (10:05→21:15)
[2018-07-24] MEDS ORDERED: PT OWN MED DRAWER 7, Y5N ONE (15:07)
[2018-07-24] MEDS: THIAMINE HCL 100 MG TABLET (FP) PO SCH (21:13)
[2018-07-24] MEDS: MELATONIN 5 MG TABLETS PO PRN (21:15)
[2018-07-25] MEDS: GABAPENTIN 400 MG CAPSULE (FP) PO SCH ×3 (06:04→21:39)
[2018-07-25] MEDS: hydrOXYzine PAMOATE 50 MG CAPSULE (FP) PO PRN ×2 (06:33→21:40)
[2018-07-25] MEDS: PRENATAL VITAMINS W/ FOLIC ACID TABLET (FP) PO SCH (09:53)
[2018-07-25] MEDS: NICOTINE 21 MG/24 HOURS TOPICAL PATCH TD SCH (09:53)
[2018-07-25] MEDS ORDERED: PT OWN MED DRAWER 7, Y5N ONE ×2 (15:48→22:30)
[2018-07-25] MEDS: IBUPROFEN 600 MG TABLET (FP) PO PRN (16:50)
[2018-07-25] MEDS: MELATONIN 5 MG TABLETS PO PRN (21:38)
[2018-07-25] MEDS: cloNIDine HCL 0.1 MG TABLET PO PRN (21:39)
[2018-07-25] MEDS: THIAMINE HCL 100 MG TABLET (FP) PO SCH (21:39)
[2018-07-26] MEDS: hydrOXYzine PAMOATE 50 MG CAPSULE (FP) PO PRN ×2 (04:04→21:01)
[2018-07-26] MEDS: GABAPENTIN 400 MG CAPSULE (FP) PO SCH ×3 (06:16→21:01)
[2018-07-26] MEDS: PRENATAL VITAMINS W/ FOLIC ACID TABLET (FP) PO SCH (10:41)
[2018-07-26] MEDS: NICOTINE 21 MG/24 HOURS TOPICAL PATCH TD SCH (10:41)
[2018-07-26] MEDS: THIAMINE HCL 100 MG TABLET (FP) PO SCH (21:00)
[2018-07-26] MEDS: MELATONIN 5 MG TABLETS PO PRN (21:01)
[2018-07-26] MEDS ORDERED: SUVOREXANT 10 MG TABLET PO PRN (22:00)
[2018-07-27] MEDS: GABAPENTIN 400 MG CAPSULE (FP) PO SCH ×3 (05:52→21:10)
[2018-07-27] MEDS: IBUPROFEN 600 MG TABLET (FP) PO PRN (05:53)
[2018-07-27] MEDS: NICOTINE 21 MG/24 HOURS TOPICAL PATCH TD SCH (10:13)
[2018-07-27] MEDS: PRENATAL VITAMINS W/ FOLIC ACID TABLET (FP) PO SCH (10:13)
[2018-07-27] MEDS: THIAMINE HCL 100 MG TABLET (FP) PO SCH (21:09)
[2018-07-27] MEDS: hydrOXYzine PAMOATE 50 MG CAPSULE (FP) PO PRN (21:10)
[2018-07-27] MEDS: MELATONIN 5 MG TABLETS PO PRN (21:10)
[2018-07-27] MEDS: SUVOREXANT 20 MG TABLET PO PRN (22:01)
[2018-07-28] MEDS: GABAPENTIN 400 MG CAPSULE (FP) PO SCH ×3 (05:50→20:59)
[2018-07-28] MEDS: NICOTINE 21 MG/24 HOURS TOPICAL PATCH TD SCH (09:52)
[2018-07-28] MEDS: PRENATAL VITAMINS W/ FOLIC ACID TABLET (FP) PO SCH (09:52)
[2018-07-28] MEDS: IBUPROFEN 600 MG TABLET (FP) PO PRN (14:15)
[2018-07-28] MEDS: hydrOXYzine PAMOATE 50 MG CAPSULE (FP) PO PRN (20:59)
[2018-07-28] MEDS: THIAMINE HCL 100 MG TABLET (FP) PO SCH (20:59)
[2018-07-28] MEDS: SUVOREXANT 20 MG TABLET PO PRN (21:00)
[2018-07-28] MEDS: MELATONIN 5 MG TABLETS PO PRN (21:00)
[2018-07-29] MEDS: GABAPENTIN 400 MG CAPSULE (FP) PO SCH ×3 (06:11→21:10)
[2018-07-29] MEDS: NICOTINE 21 MG/24 HOURS TOPICAL PATCH TD SCH (10:20)
[2018-07-29] MEDS: PRENATAL VITAMINS W/ FOLIC ACID TABLET (FP) PO SCH (10:20)
[2018-07-29] MEDS: THIAMINE HCL 100 MG TABLET (FP) PO SCH (21:08)
[2018-07-29] MEDS: hydrOXYzine PAMOATE 50 MG CAPSULE (FP) PO PRN (21:10)
[2018-07-29] MEDS: SUVOREXANT 20 MG TABLET PO PRN (21:10)
[2018-07-29] MEDS: MELATONIN 5 MG TABLETS PO PRN (21:11)
[2018-07-30] MEDS: IBUPROFEN 600 MG TABLET (FP) PO PRN (06:02)
[2018-07-30] MEDS: GABAPENTIN 400 MG CAPSULE (FP) PO SCH ×3 (06:02→21:10)
[2018-07-30] MEDS: PRENATAL VITAMINS W/ FOLIC ACID TABLET (FP) PO SCH (10:27)
[2018-07-30] MEDS: NICOTINE 21 MG/24 HOURS TOPICAL PATCH TD SCH (10:27)
[2018-07-30] MEDS: hydrOXYzine PAMOATE 50 MG CAPSULE (FP) PO PRN (21:10)
[2018-07-30] MEDS: MELATONIN 5 MG TABLETS PO PRN (21:10)
[2018-07-30] MEDS: THIAMINE HCL 100 MG TABLET (FP) PO SCH (21:10)
[2018-07-30] MEDS: cloNIDine HCL 0.1 MG TABLET PO PRN (21:19)
[2018-07-31] MEDS: GABAPENTIN 400 MG CAPSULE (FP) PO SCH ×3 (05:58→21:54)
[2018-07-31] MEDS: PRENATAL VITAMINS W/ FOLIC ACID TABLET (FP) PO SCH (10:22)
[2018-07-31] MEDS: NICOTINE 21 MG/24 HOURS TOPICAL PATCH TD SCH (10:22)
[2018-07-31] MEDS: IBUPROFEN 600 MG TABLET (FP) PO PRN (10:23)
[2018-07-31] MEDS: THIAMINE HCL 100 MG TABLET (FP) PO SCH (21:54)
[2018-07-31] MEDS: MELATONIN 5 MG TABLETS PO PRN (21:54)
[2018-07-31] MEDS: hydrOXYzine PAMOATE 50 MG CAPSULE (FP) PO PRN (21:54)
[2018-07-31] MEDS: cloNIDine HCL 0.1 MG TABLET PO PRN (21:55)
[2018-08-01] MEDS: GABAPENTIN 400 MG CAPSULE (FP) PO SCH ×3 (06:01→21:13)
[2018-08-01] MEDS: PRENATAL VITAMINS W/ FOLIC ACID TABLET (FP) PO SCH (09:31)
[2018-08-01] MEDS: NICOTINE 21 MG/24 HOURS TOPICAL PATCH TD SCH (09:32)
[2018-08-01] MEDS: THIAMINE HCL 100 MG TABLET (FP) PO SCH (21:13)
[2018-08-01] MEDS: MELATONIN 5 MG TABLETS PO PRN (21:13)
[2018-08-01] MEDS: hydrOXYzine PAMOATE 50 MG CAPSULE (FP) PO PRN (21:14)
[2018-08-01] MEDS: IBUPROFEN 600 MG TABLET (FP) PO PRN (21:15)
[2018-08-02] MEDS: GABAPENTIN 400 MG CAPSULE (FP) PO SCH ×3 (05:51→21:57)
--- NOTE | 2018-08-02 08:51 | PN ---
[facility] Progress Note Note: Pt states he has recurrence of herpes simplex- he was treated for 5 days, but pt states did not complete resolve and now lesions have increased in size Vital Signs - 24 hr 08/01/18 08/02/18 08/02/18 21:59 00:30 03:30 Temperature 97.6 F Pulse Rate 76 Respiratory 18 18 18 Rate Blood Pressure 111/70 08/02/18 06:36 Temperature 97.5 F L Pulse Rate 80 Respiratory 18 Rate Blood Pressure 101/70 Buttock- R mid buttock- pt states his recurrences are always in the same place a/p: persistent herpes will treat with Valtrex for 10 days and pt may need suppressive dose- pt will discuss with PCP
[2018-08-02] MEDS: PRENATAL VITAMINS W/ FOLIC ACID TABLET (FP) PO SCH (10:07)
[2018-08-02] MEDS: valACYclovir HCL 500 MG TABLET (FP) PO SCH ×2 (10:07→21:57)
[2018-08-02] MEDS: NICOTINE 21 MG/24 HOURS TOPICAL PATCH TD SCH (10:07)
[2018-08-02] MEDS: cloNIDine HCL 0.1 MG TABLET PO PRN (21:57)
[2018-08-02] MEDS: THIAMINE HCL 100 MG TABLET (FP) PO SCH (21:57)
[2018-08-02] MEDS: MELATONIN 5 MG TABLETS PO PRN (21:58)
[2018-08-02] MEDS: hydrOXYzine PAMOATE 50 MG CAPSULE (FP) PO PRN (21:58)
[2018-08-02] MEDS: IBUPROFEN 600 MG TABLET (FP) PO PRN (22:50)
[2018-08-02] MEDS ORDERED: PT OWN MED DRAWER 7, Y5N ONE (22:50)
[2018-08-03] MEDS: GABAPENTIN 400 MG CAPSULE (FP) PO SCH ×3 (06:28→21:13)
[2018-08-03] MEDS: valACYclovir HCL 500 MG TABLET (FP) PO SCH ×2 (10:27→21:13)
[2018-08-03] MEDS: hydrOXYzine PAMOATE 50 MG CAPSULE (FP) PO PRN ×2 (10:27→21:15)
[2018-08-03] MEDS: PRENATAL VITAMINS W/ FOLIC ACID TABLET (FP) PO SCH (10:27)
[2018-08-03] MEDS: NICOTINE 21 MG/24 HOURS TOPICAL PATCH TD SCH (10:49)
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
[2018-08-03] MEDS ORDERED: GABAPENTIN 400 MG CAPSULE (FP) PO SCH (14:15)
[2018-08-03] MEDS: THIAMINE HCL 100 MG TABLET (FP) PO SCH (21:13)
[2018-08-03] MEDS: MELATONIN 5 MG TABLETS PO PRN (21:15)
[2018-08-04] MEDS: GABAPENTIN 400 MG CAPSULE (FP) PO SCH ×3 (05:54→21:01)
[2018-08-04] MEDS: valACYclovir HCL 500 MG TABLET (FP) PO SCH ×2 (10:12→21:01)
[2018-08-04] MEDS: NICOTINE 21 MG/24 HOURS TOPICAL PATCH TD SCH (10:12)
[2018-08-04] MEDS: PRENATAL VITAMINS W/ FOLIC ACID TABLET (FP) PO SCH (10:12)
[2018-08-04] MEDS: hydrOXYzine PAMOATE 50 MG CAPSULE (FP) PO PRN ×2 (16:34→21:01)
[2018-08-04] MEDS: cloNIDine HCL 0.1 MG TABLET PO PRN (21:01)
[2018-08-04] MEDS: MELATONIN 5 MG TABLETS PO PRN (21:01)
[2018-08-04] MEDS: IBUPROFEN 600 MG TABLET (FP) PO PRN (21:01)
[2018-08-04] MEDS: THIAMINE HCL 100 MG TABLET (FP) PO SCH (21:01)
[2018-08-05] MEDS: GABAPENTIN 400 MG CAPSULE (FP) PO SCH ×3 (05:50→21:16)
[2018-08-05] MEDS: PRENATAL VITAMINS W/ FOLIC ACID TABLET (FP) PO SCH (10:09)
[2018-08-05] MEDS: NICOTINE 21 MG/24 HOURS TOPICAL PATCH TD SCH (10:09)
[2018-08-05] MEDS: valACYclovir HCL 500 MG TABLET (FP) PO SCH ×2 (10:09→21:16)
[2018-08-05] MEDS: hydrOXYzine PAMOATE 50 MG CAPSULE (FP) PO PRN (21:16)
[2018-08-05] MEDS: THIAMINE HCL 100 MG TABLET (FP) PO SCH (21:16)
[2018-08-05] MEDS: MELATONIN 5 MG TABLETS PO PRN (21:17)
[2018-08-06] MEDS: GABAPENTIN 400 MG CAPSULE (FP) PO SCH ×3 (05:55→21:23)
[2018-08-06] MEDS: valACYclovir HCL 500 MG TABLET (FP) PO SCH ×2 (09:48→21:23)
[2018-08-06] MEDS: PRENATAL VITAMINS W/ FOLIC ACID TABLET (FP) PO SCH (09:48)
[2018-08-06] MEDS: NICOTINE 21 MG/24 HOURS TOPICAL PATCH TD SCH (09:48)
[2018-08-06] MEDS: IBUPROFEN 600 MG TABLET (FP) PO PRN (11:55)
[2018-08-06] MEDS: THIAMINE HCL 100 MG TABLET (FP) PO SCH (21:23)
[2018-08-06] MEDS: hydrOXYzine PAMOATE 50 MG CAPSULE (FP) PO PRN (21:24)
[2018-08-06] MEDS: MELATONIN 5 MG TABLETS PO PRN (21:24)
[2018-08-07] MEDS: hydrOXYzine PAMOATE 50 MG CAPSULE (FP) PO PRN ×2 (06:12→21:12)
[2018-08-07] MEDS: GABAPENTIN 400 MG CAPSULE (FP) PO SCH ×3 (06:12→21:12)
[2018-08-07] MEDS: PRENATAL VITAMINS W/ FOLIC ACID TABLET (FP) PO SCH (10:06)
[2018-08-07] MEDS: NICOTINE 21 MG/24 HOURS TOPICAL PATCH TD SCH (10:06)
[2018-08-07] MEDS: valACYclovir HCL 500 MG TABLET (FP) PO SCH ×2 (10:06→21:12)
[2018-08-07] MEDS: MELATONIN 5 MG TABLETS PO PRN (21:12)
[2018-08-07] MEDS: THIAMINE HCL 100 MG TABLET (FP) PO SCH (21:12)
[2018-08-08] MEDS: GABAPENTIN 400 MG CAPSULE (FP) PO SCH ×3 (06:11→21:20)
[2018-08-08] MEDS: NICOTINE 21 MG/24 HOURS TOPICAL PATCH TD SCH (09:35)
[2018-08-08] MEDS: IBUPROFEN 600 MG TABLET (FP) PO PRN (09:35)
[2018-08-08] MEDS: PRENATAL VITAMINS W/ FOLIC ACID TABLET (FP) PO SCH (09:35)
[2018-08-08] MEDS: valACYclovir HCL 500 MG TABLET (FP) PO SCH ×2 (09:35→21:20)
[2018-08-08] MEDS: MELATONIN 5 MG TABLETS PO PRN (21:20)
[2018-08-08] MEDS: THIAMINE HCL 100 MG TABLET (FP) PO SCH (21:20)
[2018-08-08] MEDS: hydrOXYzine PAMOATE 50 MG CAPSULE (FP) PO PRN (21:21)
[2018-08-09] MEDS: GABAPENTIN 400 MG CAPSULE (FP) PO SCH ×3 (06:03→21:20)
[2018-08-09] MEDS: valACYclovir HCL 500 MG TABLET (FP) PO SCH ×2 (10:17→21:20)
[2018-08-09] MEDS: PRENATAL VITAMINS W/ FOLIC ACID TABLET (FP) PO SCH (10:17)
[2018-08-09] MEDS: NICOTINE 21 MG/24 HOURS TOPICAL PATCH TD SCH (10:17)
[2018-08-09] MEDS: MELATONIN 5 MG TABLETS PO PRN (21:20)
[2018-08-09] MEDS: THIAMINE HCL 100 MG TABLET (FP) PO SCH (21:20)
[2018-08-09] MEDS: hydrOXYzine PAMOATE 50 MG CAPSULE (FP) PO PRN (21:21)
[2018-08-10] MEDS: GABAPENTIN 400 MG CAPSULE (FP) PO SCH ×3 (05:52→21:08)
[2018-08-10] MEDS: IBUPROFEN 600 MG TABLET (FP) PO PRN (08:43)
[2018-08-10] MEDS: NICOTINE 21 MG/24 HOURS TOPICAL PATCH TD SCH (10:15)
[2018-08-10] MEDS: PRENATAL VITAMINS W/ FOLIC ACID TABLET (FP) PO SCH (10:15)
[2018-08-10] MEDS: valACYclovir HCL 500 MG TABLET (FP) PO SCH ×2 (10:15→21:07)
[2018-08-10] MEDS: THIAMINE HCL 100 MG TABLET (FP) PO SCH (21:07)
[2018-08-10] MEDS: MELATONIN 5 MG TABLETS PO PRN (21:08)
[2018-08-10] MEDS: hydrOXYzine PAMOATE 50 MG CAPSULE (FP) PO PRN (21:08)
[2018-08-11] MEDS: GABAPENTIN 400 MG CAPSULE (FP) PO SCH ×3 (05:48→21:49)
[2018-08-11] MEDS: PRENATAL VITAMINS W/ FOLIC ACID TABLET (FP) PO SCH (10:33)
[2018-08-11] MEDS: valACYclovir HCL 500 MG TABLET (FP) PO SCH ×2 (10:33→21:49)
[2018-08-11] MEDS: NICOTINE 21 MG/24 HOURS TOPICAL PATCH TD SCH (10:33)
[2018-08-11] MEDS: THIAMINE HCL 100 MG TABLET (FP) PO SCH (21:49)
[2018-08-11] MEDS: hydrOXYzine PAMOATE 50 MG CAPSULE (FP) PO PRN (21:50)
[2018-08-11] MEDS: MELATONIN 5 MG TABLETS PO PRN (21:50)
[2018-08-12] MEDS: GABAPENTIN 400 MG CAPSULE (FP) PO SCH (06:01)
[2018-08-12 06:31] VITALS: BP 114/77; PULSE 80; TEMP 97.5
[2018-08-12] MEDS: PRENATAL VITAMINS W/ FOLIC ACID TABLET (FP) PO SCH (09:54)
[2018-08-12] MEDS: NICOTINE 21 MG/24 HOURS TOPICAL PATCH TD SCH (09:55)
--- NOTE | 2018-08-12 09:57 | PN ---
[facility] Progress Note Note: REHAB DISCHARGE NOTE: PATIENT DISCHARGED TODAY FROM REHAB AND STATES HE ACCOMPLISHED ALL REHAB GOALS. PATIENT MEDICALLY STABLE AND DENIES SI/HI. PATIENT TO FOLLOW UP WITH DRUG COURT AND CONCRETE POLISHER TOMORROW MORNING. PATIENT ENCOURAGED BY [employer] TECHNICIAN TO ATTEND GROUP MEETINGS TO PREVENT RELAPSE AND TO FOLLOW UP WITH PCP WITHIN ONE WEEK OF DISCHARGE TO CONTINUE MEDICAL MANAGEMENT. PSYCHIATRIC MEDICATIONS SENT BY PSYCHIATRIST TO PREFERRED PHARMACY. Vital Signs Temperature 97.5 F L 08/12/18 06:30 Pulse Rate 80 08/12/18 06:30 Respiratory Rate 18 08/12/18 06:30 Blood Pressure 114/77 08/12/18 06:30 O2 Sat by Pulse Oximetry (%)
== END 2018-08-12 10:05 | disposition home or self-care (01) | DRG 895 ==
LOC: YASAS 21:01 → Y6N 21:52 → Y3W 07-15 11:52
PROVIDERS: ADMIT Neuromusculoskeletal Medicine & OMM; ATTEND Psychiatry & Neurology Psychiatry
PROC: HZ2ZZZZ Detoxification Services for Substance Abuse Treatment (ICD-10-PCS; principal; 2018-07-11)
PROC: HZ42ZZZ Group Counseling for Substance Abuse Treatment, Cognitive-Behavioral (ICD-10-PCS; 2018-07-15)
DX: F10.230 Alcohol dependence with withdrawal, uncomplicated (principal); F14.20 Cocaine dependence, uncomplicated; F19.280 Other psychoactive substance dependence with psychoactive substance-induced anxiety disorder; F17.213 Nicotine dependence, cigarettes, with withdrawal; F19.24 Other psychoactive substance dependence with psychoactive substance-induced mood disorder; F31.9 Bipolar disorder, unspecified; F42.9 Obsessive-compulsive disorder, unspecified; I10 Essential (primary) hypertension; A60.00 Herpesviral infection of urogenital system, unspecified; E11.9 Type 2 diabetes mellitus without complications; M54.40 Lumbago with sciatica, unspecified side; G62.9 Polyneuropathy, unspecified; G89.29 Other chronic pain; G47.00 Insomnia, unspecified; R00.0 Tachycardia, unspecified; E78.00 Pure hypercholesterolemia, unspecified; M79.7 Fibromyalgia; Z87.438 Personal history of other diseases of male genital organs; Z91.19 Patient's noncompliance with other medical treatment and regimen
CPT/HCPCS: 36415; 80053; 81003; 82962; 85025; 86593; 86803; 87389; 93005; 93010; J0735

== ENCOUNTER 2022-11-18 23:14 | Inpatient (IN) | payer OTHER ==
[2022-11-18 23:51] VITALS: BMI 25.8
[2022-11-19] MEDS ORDERED: ONDANSETRON *ODT* 4 MG TABLET SL PRN (00:23)
[2022-11-19] MEDS ORDERED: DICYCLOMINE HCL 10 MG CAPSULE PO PRN (00:23)
[2022-11-19] MEDS ORDERED: MAG HYDROX/AL HYDROX/SIMETH 30 ML UNIT-DOSE CUP PO PRN (00:23)
[2022-11-19] MEDS ORDERED: BISMUTH SUBSALICYLATE 524 MG/30 ML PO PRN (00:23)
[2022-11-19] MEDS ORDERED: BENZOCAINE/MENTHOL (CHLORASEPTIC ) LOZENGE MM PRN (00:23)
[2022-11-19] MEDS ORDERED: guaiFENesin 600 MG TABLET.ER (FP) PO PRN (00:23)
[2022-11-19] MEDS ORDERED: ACETAMINOPHEN 325 MG TABLET (FP) PO PRN (00:23)
[2022-11-19] MEDS ORDERED: NICOTINE POLACRILEX 2 MG GUM BUC PRN (00:23)
[2022-11-19] MEDS ORDERED: POLYETHYLENE GLYCOL (HEALTHYLAX) 3350 17 GM PACKET PO PRN (00:23)
[2022-11-19] MEDS ORDERED: NALOXONE HCL (KLOXXADO) 8 MG SPRAY NS PRN (00:23)
[2022-11-19] MEDS ORDERED: LOPERAMIDE HCL 2 MG CAPSULE PO PRN (00:23)
[2022-11-19] MEDS ORDERED: IBUPROFEN 400 MG TABLET (FP) PO PRN (00:23)
[2022-11-19] MEDS ORDERED: BENZONATATE 200 MG CAPSULE PO PRN (00:23)
[2022-11-19] MEDS ORDERED: MAGNESIUM HYDROX 2400MG/30ML ORAL SUSPENSION 30 ML CUP PO PRN (00:23)
[2022-11-19] MEDS ORDERED: NALOXONE HCL 0.4 MG/ML VIAL IM PRN (00:23)
[2022-11-19] MEDS ORDERED: IBUPROFEN 600 MG TABLET (FP) PO ONE (05:31)
[2022-11-19] MEDS: IBUPROFEN 600 MG TABLET (FP) PO PRN (05:33)
[2022-11-19] MEDS: METHOCARBAMOL 500 MG TABLET PO PRN ×3 (06:28→23:17)
[2022-11-19] MEDS: hydrOXYzine PAMOATE 25 MG CAPSULE (FP) PO PRN (06:29)
[2022-11-19] MEDS: NICOTINE 14 MG/24 HOURS TOPICAL PATCH TD SCH (09:17)
[2022-11-19] MEDS: PRENATAL VITAMINS W/ FOLIC ACID TABLET (FP) PO SCH (09:17)
[2022-11-19] MEDS: chlordiazePOXIDE HCL 25 MG CAPSULE PO SCH ×3 (17:36→23:13)
[2022-11-19] MEDS: MELATONIN 5 MG TABLETS PO SCH (22:17)
[2022-11-19] MEDS: THIAMINE HCL 100 MG TABLET (FP) PO SCH (22:17)
[2022-11-20] MEDS: chlordiazePOXIDE HCL 25 MG CAPSULE PO SCH ×4 (05:40→22:04)
[2022-11-20] MEDS: NICOTINE 14 MG/24 HOURS TOPICAL PATCH TD SCH (10:11)
[2022-11-20] MEDS: PRENATAL VITAMINS W/ FOLIC ACID TABLET (FP) PO SCH (10:11)
[2022-11-20 11:43] LABS: POTASSIUM 3.9 mmol/L (3.5-5.1)
[2022-11-20 11:46] LABS: HEMATOCRIT 41.5 % (35.4-49); HEMOGLOBIN 13.6 GM/dL (11.7-16.9); MCH 29.8 pg (25.7-33.7); MCHC 32.7 g/dl (32.0-35.9); MEAN CELL VOLUME 91.1 fl (80-96); MEAN PLT VOLUME 7.5 fl (7.5-11.1); PLATELET COUNT 256 10^3/uL (134-434); RBC 4.55 M/mm3 (4.00-5.60); RDW 14.1 % (11.9-15.9); WHITE BLOOD COUNT 5.1 K/mm3 (4.0-10.0)
[2022-11-20 11:47] LABS: CALCIUM 8.7 mg/dL (8.5-10.1)
[2022-11-20 11:48] LABS: ALBUMIN 3.4 g/dl (3.4-5.0); BLOOD UREA NITROGEN 15.4 mg/dL (7-18)
[2022-11-20 11:51] LABS: CREATININE 0.8 mg/dL (0.55-1.3)
[2022-11-20 11:52] LABS: TOT PROT 6.6 g/dl (6.4-8.2)
[2022-11-20 11:53] LABS: BILIRUBIN,TOTAL 0.2 mg/dL (0.2-1)
[2022-11-20 12:41] LABS: HIV INTERPRETATION NEGATIVE (NEGATIVE)
[2022-11-20] MEDS: THIAMINE HCL 100 MG TABLET (FP) PO SCH (22:04)
[2022-11-20] MEDS: MELATONIN 5 MG TABLETS PO SCH (22:04)
[2022-11-21] MEDS: chlordiazePOXIDE HCL 25 MG CAPSULE PO SCH ×4 (05:50→22:25)
[2022-11-21] MEDS: PRENATAL VITAMINS W/ FOLIC ACID TABLET (FP) PO SCH (10:13)
[2022-11-21] MEDS: NICOTINE 14 MG/24 HOURS TOPICAL PATCH TD SCH (10:13)
[2022-11-21] MEDS: METHOCARBAMOL 500 MG TABLET PO PRN ×2 (10:15→17:54)
[2022-11-21] MEDS: IBUPROFEN 600 MG TABLET (FP) PO PRN (10:15)
[2022-11-21] MEDS ORDERED: IBUPROFEN 400 MG TABLET (FP) PO PRN (12:42)
[2022-11-21] MEDS: chlordiazePOXIDE HCL 25 MG CAPSULE PO PRN ×3 (12:49→20:26)
[2022-11-21] MEDS: GABAPENTIN 300 MG CAPSULE PO SCH ×2 (13:19→22:25)
[2022-11-21 18:25] VITALS: RESP 18
[2022-11-21] MEDS: THIAMINE HCL 100 MG TABLET (FP) PO SCH (22:25)
[2022-11-21] MEDS: MELATONIN 5 MG TABLETS PO SCH (22:25)
[2022-11-22] MEDS ORDERED: chlordiazePOXIDE HCL 10 MG CAPSULE PO PRN
[2022-11-22] MEDS: GABAPENTIN 300 MG CAPSULE PO SCH (05:28)
[2022-11-22] MEDS: chlordiazePOXIDE HCL 10 MG CAPSULE PO SCH ×2 (05:29→10:22)
[2022-11-22] MEDS: METHOCARBAMOL 500 MG TABLET PO PRN (05:31)
[2022-11-22 09:43] VITALS: BP 102/66; PULSE 80; TEMP 96.9
[2022-11-22] MEDS: PRENATAL VITAMINS W/ FOLIC ACID TABLET (FP) PO SCH (10:20)
[2022-11-22] MEDS: hydrOXYzine PAMOATE 25 MG CAPSULE (FP) PO PRN (10:23)
[2022-11-22] MEDS: NICOTINE 14 MG/24 HOURS TOPICAL PATCH TD SCH (10:23)
[2022-11-23] MEDS ORDERED: chlordiazePOXIDE HCL 10 MG CAPSULE PO SCH (05:00)
[2022-11-24] MEDS ORDERED: chlordiazePOXIDE HCL 10 MG CAPSULE PO ONE (05:00)
== END 2022-11-22 12:08 | disposition left against medical advice (07) | DRG 894 ==
LOC: YASAS 23:14 → Y3N 11-19 01:40 → UNDOADMIN 11-19 01:40
PROVIDERS: ADMIT Allergy & Immunology; ATTEND Surgery
PROC: HZ2ZZZZ Detoxification Services for Substance Abuse Treatment (ICD-10-PCS; principal; 2022-11-19)
DX: F10.230 Alcohol dependence with withdrawal, uncomplicated (principal); F14.20 Cocaine dependence, uncomplicated; F12.20 Cannabis dependence, uncomplicated; F17.210 Nicotine dependence, cigarettes, uncomplicated; F19.24 Other psychoactive substance dependence with psychoactive substance-induced mood disorder; F31.9 Bipolar disorder, unspecified; M54.42 Lumbago with sciatica, left side; G89.29 Other chronic pain; Z91.199 Patient's noncompliance with other medical treatment and regimen due to unspecified reason
CPT/HCPCS: 36415; 80053; 85027; 86780; 87389; 87635; 93005; 93010

== ENCOUNTER 2022-12-14 01:31 | Inpatient (IN) | payer OTHER ==
[2022-12-14 01:49] VITALS: BMI 24.5
[2022-12-14] MEDS ORDERED: BENZONATATE 200 MG CAPSULE PO PRN (02:18)
[2022-12-14] MEDS ORDERED: NALOXONE HCL 0.4 MG/ML VIAL IM PRN (02:18)
[2022-12-14] MEDS ORDERED: NALOXONE HCL (KLOXXADO) 8 MG SPRAY NS PRN (02:18)
[2022-12-14] MEDS ORDERED: guaiFENesin 600 MG TABLET.ER (FP) PO PRN (02:18)
[2022-12-14] MEDS ORDERED: BENZOCAINE/MENTHOL (CHLORASEPTIC ) LOZENGE MM PRN (02:18)
[2022-12-14] MEDS ORDERED: IBUPROFEN 400 MG TABLET (FP) PO PRN (02:18)
[2022-12-14] MEDS ORDERED: DICYCLOMINE HCL 10 MG CAPSULE PO PRN (02:18)
[2022-12-14] MEDS ORDERED: NICOTINE 10 MG CARTRIDGE (INHALER) IH PRN (02:18)
[2022-12-14] MEDS ORDERED: MAGNESIUM HYDROX 2400MG/30ML ORAL SUSPENSION 30 ML CUP PO PRN (02:18)
[2022-12-14] MEDS ORDERED: POLYETHYLENE GLYCOL (HEALTHYLAX) 3350 17 GM PACKET PO PRN (02:18)
[2022-12-14] MEDS ORDERED: LOPERAMIDE HCL 2 MG CAPSULE PO PRN (02:18)
[2022-12-14] MEDS ORDERED: BISMUTH SUBSALICYLATE 524 MG/30 ML PO PRN (02:18)
[2022-12-14] MEDS ORDERED: MAG HYDROX/AL HYDROX/SIMETH 30 ML UNIT-DOSE CUP PO PRN (02:18)
[2022-12-14] MEDS ORDERED: IBUPROFEN 600 MG TABLET (FP) PO ONE (02:40)
[2022-12-14] MEDS: IBUPROFEN 600 MG TABLET (FP) PO PRN (02:42)
[2022-12-14] MEDS: PRENATAL VITAMINS W/ FOLIC ACID TABLET (FP) PO SCH (10:40)
[2022-12-14] MEDS: NICOTINE 14 MG/24 HOURS TOPICAL PATCH TD SCH (10:40)
[2022-12-14] MEDS ORDERED: chlordiazePOXIDE HCL 25 MG CAPSULE PO PRN (10:50)
[2022-12-14] MEDS: chlordiazePOXIDE HCL 25 MG CAPSULE PO SCH ×3 (11:17→23:08)
[2022-12-14] MEDS: ACETAMINOPHEN 325 MG TABLET (FP) PO PRN (17:34)
[2022-12-14] MEDS: MELATONIN 5 MG TABLETS PO SCH (23:07)
[2022-12-14] MEDS: THIAMINE HCL 100 MG TABLET (FP) PO SCH (23:08)
[2022-12-15] MEDS: chlordiazePOXIDE HCL 25 MG CAPSULE PO SCH ×4 (05:28→23:00)
[2022-12-15] MEDS: IBUPROFEN 600 MG TABLET (FP) PO PRN (05:29)
[2022-12-15] MEDS: PRENATAL VITAMINS W/ FOLIC ACID TABLET (FP) PO SCH (10:33)
[2022-12-15] MEDS: NICOTINE 14 MG/24 HOURS TOPICAL PATCH TD SCH (10:35)
[2022-12-15] MEDS: ONDANSETRON *ODT* 4 MG TABLET SL PRN (10:36)
[2022-12-15] MEDS: hydrOXYzine PAMOATE 25 MG CAPSULE (FP) PO PRN ×2 (10:36→19:02)
[2022-12-15 11:36] LABS: HEMATOCRIT 41.3 % (35.4-49); HEMOGLOBIN 13.6 GM/dL (11.7-16.9); MCH 29.8 pg (25.7-33.7); MCHC 32.9 g/dl (32.0-35.9); MEAN CELL VOLUME 90.5 fl (80-96); MEAN PLT VOLUME 7.5 fl (7.5-11.1); PLATELET COUNT 277 10^3/uL (134-434); RBC 4.56 M/mm3 (4.00-5.60); WHITE BLOOD COUNT 5.6 K/mm3 (4.0-10.0)
[2022-12-15 12:51] LABS: POTASSIUM 3.9 mmol/L (3.5-5.1)
[2022-12-15 12:56] LABS: CALCIUM 9.3 mg/dL (8.5-10.1)
[2022-12-15 12:57] LABS: ALBUMIN 3.5 g/dl (3.4-5.0); BLOOD UREA NITROGEN 17.7 mg/dL (7-18)
[2022-12-15 13:01] LABS: BILIRUBIN,TOTAL 0.3 mg/dL (0.2-1); CREATININE 0.9 mg/dL (0.55-1.3); TOT PROT 6.6 g/dl (6.4-8.2)
[2022-12-15] MEDS: THIAMINE HCL 100 MG TABLET (FP) PO SCH (23:00)
[2022-12-15] MEDS: MELATONIN 5 MG TABLETS PO SCH (23:00)
[2022-12-16] MEDS: hydrOXYzine PAMOATE 25 MG CAPSULE (FP) PO PRN ×3 (03:55→22:26)
[2022-12-16] MEDS: ONDANSETRON *ODT* 4 MG TABLET SL PRN (03:55)
[2022-12-16] MEDS: METHOCARBAMOL 500 MG TABLET PO PRN (03:56)
[2022-12-16] MEDS: chlordiazePOXIDE HCL 25 MG CAPSULE PO SCH ×4 (05:29→22:26)
[2022-12-16] MEDS: NICOTINE 14 MG/24 HOURS TOPICAL PATCH TD SCH (10:27)
[2022-12-16] MEDS: PRENATAL VITAMINS W/ FOLIC ACID TABLET (FP) PO SCH (10:29)
[2022-12-16] MEDS: IBUPROFEN 600 MG TABLET (FP) PO PRN (16:32)
[2022-12-16] MEDS: MELATONIN 5 MG TABLETS PO SCH (22:26)
[2022-12-16] MEDS: THIAMINE HCL 100 MG TABLET (FP) PO SCH (22:26)
[2022-12-17] MEDS ORDERED: chlordiazePOXIDE HCL 10 MG CAPSULE PO PRN
[2022-12-17] MEDS: chlordiazePOXIDE HCL 10 MG CAPSULE PO SCH ×3 (05:33→17:21)
[2022-12-17] MEDS ORDERED: PATIENT'S OWN MEDICATION (NON-FORMULARY) (Vortioxetine Hydrobromide [Trintellix] 5 MG Tabl PO SCH (10:00)
[2022-12-17] MEDS: hydrOXYzine PAMOATE 25 MG CAPSULE (FP) PO PRN (10:13)
[2022-12-17] MEDS: PRENATAL VITAMINS W/ FOLIC ACID TABLET (FP) PO SCH (10:13)
[2022-12-17] MEDS: NICOTINE 14 MG/24 HOURS TOPICAL PATCH TD SCH (10:15)
[2022-12-17] MEDS: METHOCARBAMOL 500 MG TABLET PO PRN (13:52)
[2022-12-17] MEDS ORDERED: hydrOXYzine PAMOATE 25 MG CAPSULE (FP) PO PRN (16:18)
[2022-12-17 17:53] VITALS: BP 106/61; PULSE 78; RESP 16; TEMP 97.1
[2022-12-17] MEDS: ACETAMINOPHEN 325 MG TABLET (FP) PO PRN (18:48)
[2022-12-17] MEDS ORDERED: GABAPENTIN 300 MG CAPSULE PO SCH (22:00)
[2022-12-18] MEDS ORDERED: chlordiazePOXIDE HCL 10 MG CAPSULE PO SCH (05:00)
[2022-12-19] MEDS ORDERED: chlordiazePOXIDE HCL 10 MG CAPSULE PO ONE (05:00)
== END 2022-12-17 19:26 | disposition left against medical advice (07) | DRG 894 ==
LOC: YASAS 01:31 → Y3N 03:08
PROVIDERS: ADMIT Allergy & Immunology; ATTEND Allergy & Immunology
PROC: HZ2ZZZZ Detoxification Services for Substance Abuse Treatment (ICD-10-PCS; principal; 2022-12-14)
DX: F10.230 Alcohol dependence with withdrawal, uncomplicated (principal); F12.20 Cannabis dependence, uncomplicated; F17.210 Nicotine dependence, cigarettes, uncomplicated; F31.9 Bipolar disorder, unspecified; F42.9 Obsessive-compulsive disorder, unspecified; F19.980 Other psychoactive substance use, unspecified with psychoactive substance-induced anxiety disorder; I10 Essential (primary) hypertension; R73.03 Prediabetes; M54.59 Other low back pain; G47.00 Insomnia, unspecified; Z87.438 Personal history of other diseases of male genital organs; Z91.148 Patient's other noncompliance with medication regimen for other reason
CPT/HCPCS: 36415; 80053; 85027; 86780; 87635; 87811; 93005; 93010; Q0162

== ENCOUNTER 2023-03-30 09:06 | Inpatient (IN) | payer OTHER ==
[2023-03-30 09:33] VITALS: BMI 24.1
[2023-03-30] MEDS ORDERED: POLYETHYLENE GLYCOL (HEALTHYLAX) 3350 17 GM PACKET PO PRN (09:58)
[2023-03-30] MEDS ORDERED: BENZOCAINE/MENTHOL (CHLORASEPTIC ) LOZENGE MM PRN (09:58)
[2023-03-30] MEDS ORDERED: NALOXONE HCL (KLOXXADO) 8 MG SPRAY NS PRN (09:58)
[2023-03-30] MEDS ORDERED: IBUPROFEN 400 MG TABLET (FP) PO PRN (09:58)
[2023-03-30] MEDS ORDERED: BISMUTH SUBSALICYLATE 524 MG/30 ML PO PRN (09:58)
[2023-03-30] MEDS ORDERED: MAG HYDROX/AL HYDROX/SIMETH 30 ML UNIT-DOSE CUP PO PRN (09:58)
[2023-03-30] MEDS ORDERED: DICYCLOMINE HCL 10 MG CAPSULE PO PRN (09:58)
[2023-03-30] MEDS ORDERED: LOPERAMIDE HCL 2 MG CAPSULE PO PRN (09:58)
[2023-03-30] MEDS ORDERED: BENZONATATE 200 MG CAPSULE PO PRN (09:58)
[2023-03-30] MEDS ORDERED: ACETAMINOPHEN 325 MG TABLET (FP) PO PRN (09:58)
[2023-03-30] MEDS ORDERED: ONDANSETRON *ODT* 4 MG TABLET SL PRN (09:58)
[2023-03-30] MEDS ORDERED: NALOXONE HCL 0.4 MG/ML VIAL IM PRN (09:58)
[2023-03-30] MEDS ORDERED: MAGNESIUM HYDROX 2400MG/30ML ORAL SUSPENSION 30 ML CUP PO PRN (09:58)
[2023-03-30] MEDS ORDERED: guaiFENesin 600 MG TABLET.ER (FP) PO PRN (09:58)
[2023-03-30] MEDS ORDERED: LORazepam 1 MG TABLET PO PRN (09:58)
[2023-03-30] MEDS ORDERED: LORazepam 2 MG TABLET PO ONE (10:15)
[2023-03-30] MEDS: PRENATAL VITAMINS W/ FOLIC ACID TABLET (FP) PO SCH (10:25)
[2023-03-30] MEDS: NICOTINE 7 MG/24 HOURS TOPICAL PATCH TD SCH (10:25)
[2023-03-30] MEDS ORDERED: NICOTINE 7 MG/24 HOURS TOPICAL PATCH TD ONE (10:27)
[2023-03-30] MEDS ORDERED: PRENATAL VITAMINS W/ FOLIC ACID TABLET (FP) PO ONE (10:27)
[2023-03-30] MEDS ORDERED: LORazepam 2 MG TABLET ONE (10:27)
[2023-03-30 15:18] LABS: HEMOGLOBIN 15.2 GM/dL (11.7-16.9); MCH 30.8 pg (25.7-33.7); MCHC 34.5 g/dl (32.0-35.9); MEAN CELL VOLUME 89.3 fl (80-96); MEAN PLT VOLUME 6.9 fl (7.5-11.1); PLATELET COUNT 348 10^3/uL (134-434); RBC 4.93 M/mm3 (4.00-5.60); RDW 13.7 % (11.9-15.9); WHITE BLOOD COUNT 9.8 K/mm3 (4.0-10.0)
[2023-03-30 15:21] LABS: POTASSIUM 4.5 mmol/L (3.5-5.1)
[2023-03-30 15:27] LABS: ALBUMIN 4.5 g/dl (3.4-5.0)
[2023-03-30 15:28] LABS: BLOOD UREA NITROGEN 11.5 mg/dL (7-18)
[2023-03-30 15:32] LABS: TOT PROT 8.2 g/dl (6.4-8.2)
[2023-03-30 15:35] LABS: CREATININE 0.8 mg/dL (0.55-1.3)
[2023-03-30 15:36] LABS: BILIRUBIN,TOTAL 1.1 mg/dL (0.2-1)
[2023-03-30] MEDS: LORazepam 2 MG TABLET PO SCH ×3 (17:32→22:15)
[2023-03-30] MEDS: THIAMINE HCL 100 MG TABLET (FP) PO SCH (22:15)
[2023-03-30] MEDS: GABAPENTIN 300 MG CAPSULE PO SCH (22:15)
[2023-03-30] MEDS: MELATONIN 5 MG TABLETS PO SCH (22:16)
[2023-03-31] MEDS: LORazepam 2 MG TABLET PO SCH ×4 (05:10→22:20)
[2023-03-31] MEDS: PRENATAL VITAMINS W/ FOLIC ACID TABLET (FP) PO SCH (10:21)
[2023-03-31] MEDS: LACTULOSE 20 GM/30 ML UDC (FOR ORAL USE ONLY) PO SCH ×4 (10:21→22:20)
[2023-03-31] MEDS: NICOTINE 7 MG/24 HOURS TOPICAL PATCH TD SCH (10:22)
[2023-03-31] MEDS: GABAPENTIN 300 MG CAPSULE PO SCH ×2 (10:22→22:20)
[2023-03-31] MEDS: METHOCARBAMOL 500 MG TABLET PO PRN (10:22)
[2023-03-31] MEDS: hydrOXYzine PAMOATE 25 MG CAPSULE (FP) PO PRN (10:22)
[2023-03-31] MEDS: THIAMINE HCL 100 MG TABLET (FP) PO SCH (22:20)
[2023-03-31] MEDS: MELATONIN 5 MG TABLETS PO SCH (22:20)
[2023-04-01] MEDS: LORazepam 1 MG TABLET PO SCH ×2 (05:04→10:01)
[2023-04-01] MEDS: LACTULOSE 20 GM/30 ML UDC (FOR ORAL USE ONLY) PO SCH ×4 (09:59→22:02)
[2023-04-01] MEDS: GABAPENTIN 300 MG CAPSULE PO SCH ×2 (09:59→22:02)
[2023-04-01] MEDS: METHOCARBAMOL 500 MG TABLET PO PRN ×2 (09:59→18:17)
[2023-04-01] MEDS: IBUPROFEN 600 MG TABLET (FP) PO PRN (10:00)
[2023-04-01] MEDS: hydrOXYzine PAMOATE 25 MG CAPSULE (FP) PO PRN ×2 (10:00→18:17)
[2023-04-01] MEDS: PRENATAL VITAMINS W/ FOLIC ACID TABLET (FP) PO SCH (10:01)
[2023-04-01] MEDS: NICOTINE 7 MG/24 HOURS TOPICAL PATCH TD SCH (10:01)
[2023-04-01] MEDS: chlordiazePOXIDE HCL 25 MG CAPSULE PO SCH ×2 (17:03→22:02)
[2023-04-01] MEDS: chlordiazePOXIDE HCL 25 MG CAPSULE PO PRN (19:08)
[2023-04-01] MEDS: THIAMINE HCL 100 MG TABLET (FP) PO SCH (22:02)
[2023-04-01] MEDS: MELATONIN 5 MG TABLETS PO SCH (22:04)
[2023-04-02] MEDS ORDERED: LORazepam 0.5 MG TABLET PO PRN
[2023-04-02] MEDS ORDERED: LORazepam 0.5 MG TABLET PO SCH (05:00)
[2023-04-02] MEDS: chlordiazePOXIDE HCL 25 MG CAPSULE PO SCH ×4 (05:15→22:37)
[2023-04-02] MEDS: IBUPROFEN 600 MG TABLET (FP) PO PRN (07:37)
[2023-04-02] MEDS: chlordiazePOXIDE HCL 25 MG CAPSULE PO PRN ×2 (07:38→13:49)
[2023-04-02] MEDS ORDERED: METHOCARBAMOL 750 MG TAB PO PRN (09:47)
[2023-04-02] MEDS ORDERED: MELATONIN 5 MG TABLETS PO SCH (09:48)
[2023-04-02] MEDS: LACTULOSE 20 GM/30 ML UDC (FOR ORAL USE ONLY) PO SCH ×4 (10:06→22:40)
[2023-04-02] MEDS: PRENATAL VITAMINS W/ FOLIC ACID TABLET (FP) PO SCH (10:06)
[2023-04-02] MEDS: GABAPENTIN 300 MG CAPSULE PO SCH ×2 (10:07→22:36)
[2023-04-02] MEDS: hydrOXYzine PAMOATE 25 MG CAPSULE (FP) PO PRN (10:07)
[2023-04-02] MEDS: LIDOCAINE 5% TOPICAL PATCH TP SCH (10:09)
[2023-04-02] MEDS: NICOTINE 7 MG/24 HOURS TOPICAL PATCH TD SCH (10:10)
[2023-04-02] MEDS ORDERED: diphenhydrAMINE HCL 50 MG CAPSULE PO ONE (22:00)
[2023-04-02] MEDS ORDERED: LIDOCAINE PATCH REMOVAL MC SCH (22:00)
[2023-04-02] MEDS: THIAMINE HCL 100 MG TABLET (FP) PO SCH (22:37)
[2023-04-03] MEDS ORDERED: LORazepam 0.5 MG TABLET PO ONE (05:00)
[2023-04-03] MEDS: chlordiazePOXIDE HCL 10 MG CAPSULE PO SCH ×2 (06:15→10:27)
[2023-04-03 06:23] VITALS: BP 104/68; PULSE 77; RESP 16; TEMP 97.6
[2023-04-03] MEDS: NICOTINE 7 MG/24 HOURS TOPICAL PATCH TD SCH (09:30)
[2023-04-03] MEDS: LACTULOSE 20 GM/30 ML UDC (FOR ORAL USE ONLY) PO SCH (09:30)
[2023-04-03] MEDS: GABAPENTIN 300 MG CAPSULE PO SCH (09:30)
[2023-04-03] MEDS: LIDOCAINE 5% TOPICAL PATCH TP SCH (09:30)
[2023-04-03] MEDS: PRENATAL VITAMINS W/ FOLIC ACID TABLET (FP) PO SCH (09:31)
[2023-04-04] MEDS ORDERED: chlordiazePOXIDE HCL 10 MG CAPSULE PO PRN
[2023-04-04] MEDS ORDERED: chlordiazePOXIDE HCL 10 MG CAPSULE PO SCH (05:00)
[2023-04-05] MEDS ORDERED: chlordiazePOXIDE HCL 10 MG CAPSULE PO ONE (05:00)
== END 2023-04-03 09:05 | disposition left against medical advice (07) | DRG 894 ==
LOC: YASAS 09:06 → Y6N 10:47
PROVIDERS: ADMIT Allergy & Immunology; ATTEND Surgery
PROC: HZ2ZZZZ Detoxification Services for Substance Abuse Treatment (ICD-10-PCS; principal; 2023-03-30)
DX: F10.230 Alcohol dependence with withdrawal, uncomplicated (principal); F14.20 Cocaine dependence, uncomplicated; F12.20 Cannabis dependence, uncomplicated; F17.210 Nicotine dependence, cigarettes, uncomplicated; G62.9 Polyneuropathy, unspecified; M54.32 Sciatica, left side; R73.03 Prediabetes; Z86.59 Personal history of other mental and behavioral disorders; Z91.410 Personal history of adult physical and sexual abuse
CPT/HCPCS: 36415; 80053; 82140; 85027; 86780; 87635; Q0162